=== PATIENT | male | born 1950 | race Caucasian/White ===

== ENCOUNTER → 2016-07-23 | Outpatient (CLI) | payer MEDICARE ==
--- NOTE | 2016-07-23 15:11 | CT ---
EXAMINATION TYPE: CT ChestAbdPelvis wo con DATE OF EXAM: 07/23/2016 2:27 PM COMPARISON: CT cap September 27, 2015. HISTORY: Bladder and Lung CA progress study. CT DLP: 1110 mGycm. Automated Exposure Control for Dose Reduction was Utilized. TECHNIQUE: CT scan of the thorax, abdomen and pelvis is performed with oral but without IV contrast. FINDINGS: LUNGS: There is redemonstration of linear scarring anteriorly in the left upper lobe. There is stable small left pleural thickening or fluid collection inferiorly and laterally. Mild to moderate basila r scarring is redemonstrated on the left. No new suspicious noncalcified parenchymal nodule or mass i s present. There are scattered calcified nodules measuring under 4 mm in size bilaterally redemonstra jake. The tracheobronchial tree is patent. MEDIASTINUM: There are no greater than 1 cm noncalcified hilar or mediastinal lymph nodes. There are prominent but subcentimeter calcified paratracheal, bilateral hilar, and subcarinal lymph nodes. No cardiomegaly or pericardial effusion is seen. Post CABG changes with mediastinal clips and sternal w ires is present OTHER: No additional significant abnormality is seen. LIVER/GB: There are scattered subcentimeter lesions throughout the liver as well as a 2 cm simple jorge alberto earing cyst left hepatic lobe all presumed benign. PANCREAS: No significant abnormality is seen. SPLEEN: A few calcifications throughout the spleen consistent with product of old granulomatous disea se are redemonstrated ADRENALS: No significant abnormality is seen. KIDNEYS: There is persistent abnormal wall thickening of the bladder along the anterior left aspect m easuring up to 8 mm on current study slightly less prominent than prior. BOWEL: Oral contrast reaches level of distal transverse colon. There is no suspicious small or large bowel dilatation. Small hiatal hernia is present. GENITAL ORGANS: No gross abnormality seen. LYMPH NODES: No greater than 1cm abdominal or pelvic lymph nodes are appreciated. OSSEOUS STRUCTURES: Posterior spur disc complex effaces anterior thecal sac at T11-T12 level. There i s disc space narrowing and vacuum disc phenomenon in lower lumbar spine facet arthropathy identified. OTHER: There is moderate calcified atherosclerotic change of distal abdominal aorta and iliac branch vessels. IMPRESSION: Eccentric wall thickening of bladder in which neoplasm cannot be excluded is less promine nt but presumed product of increased bladder distention. Evidence of old granulomatous disease redemo nstrated. No new mass or adenopathy is identified to suggest neoplastic progression.
== END ==
LOC: RADCTMAIN 12:02
PROVIDERS: ATTEND Internal Medicine Hematology & Oncology
DX: Z03.89 Encounter for observation for other suspected diseases and conditions ruled out (principal); C67.2 Malignant neoplasm of lateral wall of bladder; Z88.5 Allergy status to narcotic agent
CPT/HCPCS: 36415; 71250; 74176; 82565; 84520

== ENCOUNTER → 2017-04-04 | Outpatient (CLI) | payer MEDICARE ==
[2017-04-04 08:46] LABS: Blood Urea Nitrogen 25 mg/dL (9-20); Non-African American GFR(MDRD) 50 (>60 ml/min/1.73 sqM)
--- NOTE | 2017-04-04 11:00 | CT ---
EXAMINATION TYPE: CT ChestAbdPelvis w con DATE OF EXAM: 04/04/2017 INDICATION: Patient has no complaints at time of study. Follow up study for known bladder CA COMPARISON: 07/23/2016 CT DLP: 670.4 mGycm CONTRAST: Performed with Oral Contrast and with IV Contrast, patient injected with 80 mL of Visipaque 320. TECHNIQUE: Axial images at 5 mm thick sections. Reconstructed images in the coronal plane. Delayed images through the kidneys. FINDINGS: CT CHEST: Portion of the thyroid visualized is normal. Couple of benign-appearing rounded calcifications are in the upper lung louie likely related to calc ified granuloma. Some streak opacities within the left apex could be related atelectasis or scarring. Couple of areas of pneumonitis are within the left upper lung field, example series 4 image 22. Couple of punctate nodular densities are within the lower lung louie bilaterally. These measure 2 to 3 mm each at the bilateral posterior lung bases. These were present previously. There is a 1.0 cm pretracheal lymph node at the level the bam which is calcified and stable in siz e from comparison. Additional smaller calcified lymph nodes are present. There is a 1.0 cm lymph node posterior to the innominate artery and brachiocephalic vein within the superior mediastinum which is enlarged from 0.7 cm previously. Series 3 image 16 The ascending aorta diameter at the level of the main pulmonary artery is 3.5 cm. The main pulmonary artery diameter at the bifurcation is 2.3 cm. Small hiatal hernia is present. CT ABDOMEN: Liver: There are stable hypodensities within the superior right lobe liver measuring 0.7 and 1.3 cm i n size. Hypodensities within the superior left lobe liver measuring 1.2 cm in size. There is a medial left lobe liver 1.4 cm cyst present. Findings are likely related to hepatic cysts. There is a hypode nsity which is not a simple cyst in the posterior medial mid right lobe liver. However, this was pres ent previously and appears stable. Hypodensity in the anterior right lobe liver midportion appears mo re cystlike on the current examination than previous. No suspicious enlarging masses are identified. Spleen: Normal Pancreas: Atrophic Adrenal glands: The adrenal glands are normal. Gallbladder: Gallstone may be near the neck of the gallbladder. Gallbladder is otherwise unremarkable . Kidneys: No masses are evident. No hydronephrosis is present. There is a 1.3 cm cyst at the superio r pole posterior left kidney measuring 20 Hounsfield units. Delayed images were obtained through the kidneys, which remain unremarkable. Aorta: Vascular calcification is within the aorta. There is some wall thrombus within the mid abdomi nal aorta. The AP diameter measures 2.3 cm and extends to the bifurcation. Inferior vena cava: Normal. CT PELVIS: Loops of bowel within the abdomen and pelvis are normal. There are loops of bowel which are incom pletely distended or lack oral contrast limiting their evaluation. Appendix: Normal as visualized. Urinary bladder: Diffusely thickened wall which is eccentric and greater thickening along the anterio r margin, this is a change from prior study. Genitourinary structures: Prostate is normal. Osseous structures: There is a sclerotic 0.6 cm within the anterior left neck of the hip. Sacroiliac joint degenerative changes are present. Facet changes are present. There is loss of disc height L5-S1 . IMPRESSIONS: 1. Diffusely thickened urinary bladder wall greater along the anterior margin. This is more obvious t chavez the comparison study, change from prior. 2. Enlarging superior mediastinal lymph node. 3. Suspected gallstone at the neck of the gallbladder. 4. Probable hepatic cysts. 5. Some fusiform prominence of the mid abdominal aorta is stable from previous. 6. Multiple punctate 2 to 3 mm stable appearing nodules bilateral lung bases.
== END | disposition home or self-care (01) ==
LOC: RADCTMAIN 07:58
PROVIDERS: ATTEND Internal Medicine Hematology & Oncology
DX: N32.89 Other specified disorders of bladder (principal); R59.0 Localized enlarged lymph nodes; R91.8 Other nonspecific abnormal finding of lung field; C67.2 Malignant neoplasm of lateral wall of bladder
CPT/HCPCS: 82565; 84520; 71260; 74177; 36415; Q9967

== ENCOUNTER 2017-06-12 23:46 | Emergency (ER) | payer MEDICARE ==
[2017-06-12 23:54] VITALS: PULSE 71
[2017-06-13 00:36] LABS: Basophils % (A) 1 %; Eosinophils # (A) 0.1 k/uL (0-0.7); Eosinophils % (A) 1 %; HCT 42.3 % (39.0-53.0); HGB 13.7 gm/dL (13.0-17.5); Lymphocytes # (A) 0.6 k/uL (1.0-4.8); Lymphocytes % (A) 9 %; MCH 30.9 pg (25.0-35.0); MCHC 32.4 g/dL (31.0-37.0); MCV 95.3 fL (80.0-100.0); Monocytes # (A) 0.4 k/uL (0-1.0); Monocytes % (A) 7 %; Neutrophils # (A) 5.3 k/uL (1.3-7.7); Neutrophils % (A) 80 %; RBC 4.44 m/uL (4.30-5.90); WBC 6.6 k/uL (3.8-10.6)
[2017-06-13 00:53] LABS: INR 1.1 (<1.2); Partial Thromboplastin Time 24.3 sec (22.0-30.0); Prothrombin Time 10.7 sec (9.0-12.0)
[2017-06-13 01:01] LABS: Albumin 3.7 g/dL (3.5-5.0); Calcium 8.8 mg/dL (8.4-10.2); Potassium 4.6 mmol/L (3.5-5.1); Total Bilirubin 0.6 mg/dL (0.2-1.3); Total Protein 6.5 g/dL (6.3-8.2)
[2017-06-13 01:03] LABS: Large Platelets Present; Platelet Count 54 k/uL (150-450)
[2017-06-13 01:06] LABS: Appearance,Urine Cloudy (Clear); Bilirubin,Urine Negative (Negative); Blood,Urine Moderate (Negative); Color,Urine Yellow; Glucose,Urine (UA) Negative (Negative); Ketones,Urine Trace (Negative); Leukocyte Esterase,Urine Large (Negative); Nitrite,Urine Positive (Negative); Protein,Urine 2+ (Negative); RBC,Urine 31 /hpf (0-5); Specific Gravity,Urine 1.011 (1.001-1.035); Sperm,Urine Rare /hpf; Urobilinogen,Urine <2.0 mg/dL (<2.0); WBC,Urine >182 /hpf (0-5)
[2017-06-13 01:08] LABS: Amphetamine Screen,Urine Not Detected (NotDetected); Barbiturate Screen,Urine Not Detected (NotDetected); Benzodiazepines Screen,Urine Detected (NotDetected); Cocaine Screen,Urine Not Detected (NotDetected); Methadone Screen, Urine Not Detected (NotDetected); Opiate Screen,Urine Detected (NotDetected); Oxycodone Screen, Urine Not Detected (NotDetected); Phencyclidine Screen,Urine Not Detected (NotDetected); Tricyclic Antidepressant,Urine Not Detected (NotDetected); Urn Cannabinoid Scrn Detected (NotDetected)
[2017-06-13 01:21] LABS: Troponin I 0.017 ng/mL (0.000-0.034)
[2017-06-13 01:34] LABS: Creatine Kinase MB 8.9 ng/mL (0.0-2.4)
--- NOTE | 2017-06-13 01:37 | CT ---
EXAM: CT Head Without Intravenous Contrast CLINICAL HISTORY: Reason: altered mental status TECHNIQUE: Axial computed tomography images of the head/brain without intravenous contrast. CTDI is 57.40 mGy and DLP is 943.80 mGy-cm. This CT exam was performed using one or more of the following dose reduction techniques: automated exposure control, adjustment of the mA and/or kV according to patient size, and/or use of iterative reconstruction technique. COMPARISON: 01/01/16 FINDINGS: Brain: Unremarkable. No hemorrhage. No significant white matter disease. No edema. Ventricles: Unremarkable. No ventriculomegaly. Bones/joints: Unremarkable. No acute fracture. Soft tissues: Unremarkable. Sinuses: Unremarkable as visualized. No acute sinusitis. Mastoid air cells: Unremarkable as visualized. No mastoid effusion. Other findings: Age appropriate atrophy. IMPRESSION: No acute intracranial process. Stable exam.
[2017-06-13] MEDS ORDERED: LEVOFLOXACIN 750MG-D5W PMX 750 MG in DEXTROSE/WATER 1 150ML.BAG IVPB STA (01:58)
[2017-06-13 02:24] VITALS: BP 143/82; RESP 18; TEMP 98.7
[2017-06-13] MEDS ORDERED: HYDROcodone/APAP 7.5-325MG 1 EACH TAB PO ONE (02:51)
[2017-06-13] MEDS ORDERED: LEVOFLOXACIN 750 MG TAB PO STA (02:51)
--- NOTE | 2017-06-13 02:57 | ED ---
Headache HPI - General Chief Complaint: Altered Mental Status Stated Complaint: Altered Mental Status Time Seen by Provider: 06/13/17 00:19 Mode of arrival: ambulatory Limitations: no limitations - History of Present Illness Initial Comments: This patient is a 67-year-old man who presents with a concern that he may be having a stroke. The patient's states that by this he means he has had a rather severe headache. The patient's son is also concerned because the patient has not been his usual self. The patient has been more somnolent and his speech was a little slow and he seemed a little confused. The patient is not having any focal neurologic weakness or any numbness. The patient indicates that the headache is whole head. He describes as a pounding headache that started a number of hours ago, while he was at rest. He describes as constant, severe, and without any worsening or relieving factors. Patient denies fever or chills or any neck stiffness. The patient does note that he has not taken his usual home pain medication since noon. MD Complaint: headache -: hour(s) Onset Description: sudden Location: diffuse Severity: severe Quality: aching, throbbing Consistency: constant Improves With: nothing Worsens With: none Context: occurred at rest Treatments Prior to Arrival: none - Related Data Home Medications Medication Instructions Recorded Confirmed Atorvastatin [Lipitor] 20 mg PO HS 08/20/14 06/12/17 Clopidogrel [Plavix] 75 mg PO DAILY 08/20/14 06/12/17 Escitalopram [Lexapro] 20 mg PO DAILY 08/20/14 06/12/17 Ezetimibe [Zetia] 10 mg PO DAILY 08/20/14 06/12/17 Metoprolol Succinate [Toprol XL] 50 mg PO DAILY 08/20/14 06/12/17 Nitroglycerin Sl Tabs [Nitrostat] 0.4 mg PO Q5M PRN 08/20/14 06/12/17 Albuterol Sulfate [Proair Hfa] 2 puff INHALATION RT-QID PRN 10/27/15 06/12/17 Diltiazem HCl [Diltiazem 24Hr ER] 120 mg PO DAILY 10/27/15 06/12/17 Omeprazole 20 mg PO DAILY 10/27/15 06/12/17 Tiotropium 18 Mcg/Puff [Spiriva] 1 cap INHALATION RT-DAILY 10/27/15 06/12/17 Baclofen [Lioresal] 10 mg PO Q6H PRN 01/01/16 06/12/17 ALPRAZolam [Xanax XR] 1 mg PO DAILY 06/12/17 06/12/17 HYDROcodone/APAP 7.5-325MG [[place] 1 tab PO Q6HR PRN 06/12/17 06/12/17 7.5-325] Omeprazole 20 mg PO 06/12/17 traZODone HCL 50 mg PO HS 06/12/17 06/12/17 Previous Rx's Medication Instructions Recorded Levofloxacin [Levaquin] 750 mg PO DAILY #7 tab 06/13/17 Allergies Allergy/AdvReac Type Severity Reaction Status Date / Time propoxyphene HCl Allergy Dyspnea Verified 01/01/16 21:28 [From Darvon] propoxyphene napsylate Allergy Unknown Verified 01/01/16 21:28 [From Darvocet-N] aspirin AdvReac Unknown Verified 01/01/16 21:28 Review of Systems ROS Statement: Those systems with pertinent positive or pertinent negative responses have been documented in the HPI. ROS Other: All systems not noted in ROS Statement are negative. Constitutional: Denies: fever, chills, weakness ENT: Denies: throat pain Respiratory: Denies: cough, dyspnea Cardiovascular: Denies: chest pain, palpitations, edema Gastrointestinal: Reports: constipation. Denies: abdominal pain, vomiting, diarrhea Genitourinary: Reports: dysuria, hematuria Musculoskeletal: Reports: back pain (Chronic) Skin: Denies: rash Neurological: Reports: headache, weakness (Generalized), confusion. Denies: numbness, paresthesias Past Medical History Past Medical History: Cancer, GI Bleed, Hyperlipidemia, Hypertension, Myocardial Infarction ([place]), Osteoarthritis (OA) Additional Past Medical History / Comment(s): BLADDER and lung CA with chemo and radiation, COMA 5 years ago Last Myocardial Infarction Date:: 2009 History of Any Multi-Drug Resistant Organisms: None Reported Past Surgical History: Coronary Bypass/CABG, Heart Catheterization, Orthopedic Surgery Additional Past Surgical History / Comment(s): RIGHT KNEE REPLACED, BONE TAKEN OUT OF RIGHT SHOULDER, Past Anesthesia/Blood Transfusion Reactions: No Reported Reaction Past Psychological History: Anxiety, Depression Smoking Status: Former smoker Past Alcohol Use History: None Reported Past Drug Use History: Marijuana - Past Family History Son(s) Additional Family Medical History / Comment(s): Son at age 32 from brain aneurysm Mother Family Medical History: Congestive Heart Failure (CHF) Additional Family Medical History / Comment(s): HEART SWELLED General Exam Limitations: no limitations General appearance: alert, in no apparent distress Head exam: Present: atraumatic, normocephalic Eye exam: Present: normal appearance. Absent: scleral icterus, conjunctival injection ENT exam: Present: mucous membranes dry Neck exam: Present: full ROM Respiratory exam: Present: normal lung sounds bilaterally. Absent: respiratory distress, wheezes, rales, rhonchi, stridor Cardiovascular Exam: Present: regular rate, normal rhythm, normal heart sounds. Absent: systolic murmur, diastolic murmur, rubs, gallop GI/Abdominal exam: Present: soft. Absent: distended, tenderness, guarding, rebound, mass Extremities exam: Present: normal inspection, normal capillary refill. Absent: pedal edema, calf tenderness Back exam: Absent: CVA tenderness (R), CVA tenderness (L) Neurological exam: Present: alert, oriented X3, CN II-XII intact. Absent: motor sensory deficit Skin exam: Present: warm, dry, intact, normal color. Absent: rash Course Vital Signs 06/12/17 06/13/17 23:47 02:23 Temperature 98.1 F 98.7 F Pulse Rate 71 71 Respiratory 20 18 Rate Blood Pressure 155/75 143/82 O2 Sat by Pulse 93 L 95 Oximetry Medical Decision Making - Medical Decision Making Discussed the findings with the patient and his son. Offered admission to begin treatment of the urinary tract infection with possible prostate involvement. The patient states that he does have his son who is available to help care for him at home and that he would like to try starting medication as outpatient and return if there is any difficulty. This does seem acceptable. Discussed appropriate further care and follow-up as well as return parameters. - Lab Data Result diagrams: 06/13/17 00:21 06/13/17 00:21 Lab Results 06/13/17 06/13/17 06/13/17 Range/Units 00:21 00:21 00:21 WBC 6.6 (3.8-10.6) k/uL RBC 4.44 (4.30-5.90) m/uL Hgb 13.7 (13.0-17.5) gm/dL Hct 42.3 (39.0-53.0) % MCV 95.3 (80.0-100.0) fL MCH 30.9 (25.0-35.0) pg MCHC 32.4 (31.0-37.0) g/dL RDW 14.0 (11.5-15.5) % Plt Count 54 L (150-450) k/uL Neutrophils % 80 % Lymphocytes % 9 % Monocytes % 7 % Eosinophils % 1 % Basophils % 1 % Neutrophils # 5.3 (1.3-7.7) k/uL Lymphocytes # 0.6 L (1.0-4.8) k/uL Monocytes # 0.4 (0-1.0) k/uL Eosinophils # 0.1 (0-0.7) k/uL Basophils # 0.0 (0-0.2) k/uL Manual Slide Review Performed Large Platelets Present PT (9.0-12.0) sec INR (<1.2) APTT (22.0-30.0) sec Sodium 135 L (137-145) mmol/L Potassium 4.6 (3.5-5.1) mmol/L Chloride 95 L (98-107) mmol/L Carbon Dioxide 30 (22-30) mmol/L Anion Gap 10 mmol/L BUN 20 (9-20) mg/dL Creatinine 1.50 H (0.66-1.25) mg/dL Est GFR (MDRD) Af Amer 56 (>60 ml/min/1.73 sqM) Est GFR (MDRD) Non-Af 47 (>60 ml/min/1.73 sqM) Glucose 164 H (74-99) mg/dL Calcium 8.8 (8.4-10.2) mg/dL Total Bilirubin 0.6 (0.2-1.3) mg/dL AST 64 H (17-59) U/L ALT 32 (21-72) U/L Alkaline Phosphatase 64 (38-126) U/L Total Creatine Kinase 1166 H (55-170) U/L CK-MB (CK-2) 8.9 H* (0.0-2.4) ng/mL CK-MB (CK-2) Rel Index 0.8 Troponin I 0.017 (0.000-0.034) ng/mL Total Protein 6.5 (6.3-8.2) g/dL Albumin 3.7 (3.5-5.0) g/dL Urine Color Urine Appearance (Clear) Urine pH (5.0-8.0) Ur Specific Adams (1.001-1.035) Urine Protein (Negative) Urine Glucose (UA) (Negative) Urine Ketones (Negative) Urine Blood (Negative) Urine Nitrite (Negative) Urine Bilirubin (Negative) Urine Urobilinogen (<2.0) mg/dL Ur Leukocyte Esterase (Negative) Urine RBC (0-5) /hpf Urine WBC (0-5) /hpf Urine WBC Clumps (None) /hpf Urine Sperm (None) /hpf Urine Opiates Screen (NotDetected) Ur Oxycodone Screen (NotDetected) Urine Methadone Screen (NotDetected) Ur Propoxyphene Screen (NotDetected) Ur Barbiturates Screen (NotDetected) U Tricyclic Antidepress (NotDetected) Ur Phencyclidine Scrn (NotDetected) Ur Amphetamines Screen (NotDetected) U Methamphetamines Scrn (NotDetected) U Benzodiazepines Scrn (NotDetected) Urine Cocaine Screen (NotDetected) U Marijuana (THC) Screen (NotDetected) 06/13/17 06/13/17 Range/Units 00:21 00:40 WBC (3.8-10.6) k/uL RBC (4.30-5.90) m/uL Hgb (13.0-17.5) gm/dL Hct (39.0-53.0) % MCV (80.0-100.0) fL MCH (25.0-35.0) pg MCHC (31.0-37.0) g/dL RDW (11.5-15.5) % Plt Count (150-450) k/uL Neutrophils % % Lymphocytes % % Monocytes % % Eosinophils % % Basophils % % Neutrophils # (1.3-7.7) k/uL Lymphocytes # (1.0-4.8) k/uL Monocytes # (0-1.0) k/uL Eosinophils # (0-0.7) k/uL Basophils # (0-0.2) k/uL Manual Slide Review Large Platelets PT 10.7 (9.0-12.0) sec INR 1.1 (<1.2) APTT 24.3 (22.0-30.0) sec Sodium (137-145) mmol/L Potassium (3.5-5.1) mmol/L Chloride (98-107) mmol/L Carbon Dioxide (22-30) mmol/L Anion Gap mmol/L BUN (9-20) mg/dL Creatinine (0.66-1.25) mg/dL Est GFR (MDRD) Af Amer (>60 ml/min/1.73 sqM) Est GFR (MDRD) Non-Af (>60 ml/min/1.73 sqM) Glucose (74-99) mg/dL Calcium (8.4-10.2) mg/dL Total Bilirubin (0.2-1.3) mg/dL AST (17-59) U/L ALT (21-72) U/L Alkaline Phosphatase (38-126) U/L Total Creatine Kinase (55-170) U/L CK-MB (CK-2) (0.0-2.4) ng/mL CK-MB (CK-2) Rel Index Troponin I (0.000-0.034) ng/mL Total Protein (6.3-8.2) g/dL Albumin (3.5-5.0) g/dL Urine Color Yellow Urine Appearance Cloudy (Clear) Urine pH 6.0 (5.0-8.0) Ur Specific [place] 1.011 (1.001-1.035) Urine Protein 2+ H (Negative) Urine Glucose (UA) Negative (Negative) Urine Ketones Trace H (Negative) Urine Blood Moderate H (Negative) Urine Nitrite Positive (Negative) Urine Bilirubin Negative (Negative) Urine Urobilinogen <2.0 (<2.0) mg/dL Ur Leukocyte Esterase Large H (Negative) Urine RBC 31 H (0-5) /hpf Urine WBC >182 H (0-5) /hpf Urine WBC Clumps Many H (None) /hpf Urine Sperm Rare (None) /hpf Urine Opiates Screen Detected H (NotDetected) Ur Oxycodone Screen Not Detected (NotDetected) Urine Methadone Screen Not Detected (NotDetected) Ur Propoxyphene Screen Not Detected (NotDetected) Ur Barbiturates Screen Not Detected (NotDetected) U Tricyclic Antidepress Not Detected (NotDetected) Ur Phencyclidine Scrn Not Detected (NotDetected) Ur Amphetamines Screen Not Detected (NotDetected) U Methamphetamines Scrn Not Detected (NotDetected) U Benzodiazepines Scrn Detected H (NotDetected) Urine Cocaine Screen Not Detected (NotDetected) U Marijuana (THC) Screen Detected H (NotDetected) - EKG Data -: EKG Interpreted by Hi EKG shows normal: sinus rhythm, axis (Left), intervals (N[place] interval 208 ms, QRS duration 132 ms, QTC 450 ms), QRS complexes (Right bundle-branch block) Rate: normal (Rate 60 bpm) Interpretation: other (Possible old inferior infarct.) Disposition Clinical Impression: UTI (urinary tract infection), Altered mental status Disposition: HOME SELF-CARE Condition: Fair Instructions: Urinary Tract Infection in Men (ED) Prescriptions: Levofloxacin [Levaquin] 750 mg PO DAILY #7 tab Referrals: Dayan Hui III, MD [Primary Care Provider] - 1-2 days
== END 2017-06-13 03:37 | disposition home or self-care (01) ==
LOC: EC 23:46
DX: N39.0 Urinary tract infection, site not specified (principal); R41.82 Altered mental status, unspecified; R51 Headache; E78.5 Hyperlipidemia, unspecified; I10 Essential (primary) hypertension; I25.2 Old myocardial infarction; F32.9 Major depressive disorder, single episode, unspecified; F41.9 Anxiety disorder, unspecified; Z85.51 Personal history of malignant neoplasm of bladder; Z85.118 Personal history of other malignant neoplasm of bronchus and lung; Z87.891 Personal history of nicotine dependence; Z79.01 Long term (current) use of anticoagulants; Z79.899 Other long term (current) drug therapy; Z88.5 Allergy status to narcotic agent; Z88.6 Allergy status to analgesic agent; Z88.8 Allergy status to other drugs, medicaments and biological substances; Z53.8 Procedure and treatment not carried out for other reasons
CPT/HCPCS: 36415; 70450; 80053; 80306; 81001; 82550; 82553; 84484; 85025; 85610; 85730; 93005; 99285

== ENCOUNTER 2017-06-27 10:14 | Inpatient (IN) | payer MEDICARE ==
[2017-06-27] MEDS ORDERED: SODIUM CHLORIDE 0.9% 1,000 ML IV STA (10:17)
[2017-06-27] MEDS ORDERED: ceFAZolin 1,000 MG in DEXTROSE/WATER 1 50ML.BAG IVPB STA (10:17)
[2017-06-27] MEDS ORDERED: DIPH,PERTUS(ACELL)TETVAC-LF 0.5 ML VIAL IM ONE (10:17)
--- NOTE | 2017-06-27 10:21 | ED ---
General Adult HPI - General Source: RN notes reviewed <Robert Stanley - Last Filed: 06/27/17 13:48> <Beatrice Ivey - Last Filed: 06/27/17 13:59> - General Stated complaint: FALL Time Seen by Provider: 06/27/17 10:14 - History of Present Illness Initial comments: This is a 67-year-old male who presents to the emergency department with altered mental status. According to EMS the son stated the patient was last seen last night and this morning when he came over to see the patient he was on the floor bleeding from the left supraorbital region and was naked lying on the floor. Patient was unable to give any history. According to the son is normally alert and oriented 3 and appears to only be alert and oriented 1 according to EMS. EMS did give the patient Narcan it had no effect. Patient's only complaint currently is back pain which is chronic. No other history is available at this time. (Robert Stanley) - Related Data Home Medications Medication Instructions Recorded Confirmed Atorvastatin [Lipitor] 20 mg PO HS 08/20/14 06/27/17 Clopidogrel [Plavix] 75 mg PO DAILY 08/20/14 06/27/17 Escitalopram [Lexapro] 20 mg PO DAILY 08/20/14 06/27/17 Ezetimibe [Zetia] 10 mg PO DAILY 08/20/14 06/27/17 Metoprolol Succinate [Toprol XL] 25 mg PO DAILY 08/20/14 06/27/17 Nitroglycerin Sl Tabs [Nitrostat] 0.4 mg PO Q5M PRN 08/20/14 06/27/17 Albuterol Sulfate [Proair Hfa] 2 puff INHALATION RT-QID PRN 10/27/15 06/27/17 Diltiazem HCl [Diltiazem 24Hr ER] 120 mg PO AC-BRKFST 10/27/15 06/27/17 Omeprazole 20 mg PO DAILY 10/27/15 06/27/17 Tiotropium 18 Mcg/Puff [Spiriva] 1 cap INHALATION RT-DAILY 10/27/15 06/27/17 HYDROcodone/APAP 7.5-325MG [[place] 1 tab PO Q6HR PRN 06/12/17 06/27/17 7.5-325] traZODone HCL 50 - 100 mg PO HS PRN 06/12/17 06/27/17 ALPRAZolam [ALPRAZolam] 1 mg PO Q8H PRN 06/27/17 06/27/17 Baclofen [Lioresal] 20 mg PO Q6H PRN 06/27/17 06/27/17 traMADol HCL [Ultram] 50 mg PO Q4HR PRN 06/27/17 06/27/17 Allergies Allergy/AdvReac Type Severity Reaction Status Date / Time propoxyphene HCl Allergy Dyspnea Verified 06/27/17 11:46 [From Darvon] propoxyphene napsylate Allergy Unknown Verified 06/27/17 11:46 [From Darvocet-N] aspirin AdvReac Unknown Verified 06/27/17 11:46 Review of Systems ROS Other: All systems not noted in ROS Statement are negative. <Robert Stanley - Last Filed: 06/27/17 13:48> ROS Other: All systems not noted in ROS Statement are negative. <Beatrice Ivey - Last Filed: 06/27/17 13:59> ROS Statement: Those systems with pertinent positive or pertinent negative responses have been documented in the HPI. Past Medical History Past Medical History: Cancer, GI Bleed, Hyperlipidemia, Hypertension, Myocardial Infarction ([place]), Osteoarthritis ([place]) Additional Past Medical History / Comment(s): BLADDER and lung CA with chemo and radiation, COMA 5 years ago Last Myocardial Infarction Date:: 2009 History of Any Multi-Drug Resistant Organisms: None Reported Past Surgical History: Coronary Bypass/CABG, Heart Catheterization, Orthopedic Surgery Additional Past Surgical History / Comment(s): RIGHT KNEE REPLACED, BONE TAKEN OUT OF RIGHT SHOULDER, Past Anesthesia/Blood Transfusion Reactions: No Reported Reaction Past Psychological History: Anxiety, Depression Smoking Status: Former smoker Past Alcohol Use History: None Reported Past Drug Use History: Marijuana - Past Family History Son(s) Additional Family Medical History / Comment(s): Son at age 32 from brain aneurysm Mother Family Medical History: Congestive Heart Failure (CHF) Additional Family Medical History / Comment(s): HEART SWELLED <Robert Stanley - Last Filed: 06/27/17 13:48> General Exam <Robert Stanley - Last Filed: 06/27/17 13:48> <ReardanBeatrice M - Last Filed: 06/27/17 13:59> - General Exam Comments Initial Comments: GENERAL: Patient is well-developed and well-nourished. Patient is nontoxic and well- hydrated and is in mild distress. ENT: Neck is soft and supple. No significant lymphadenopathy is noted. Oropharynx is clear. Moist mucous membranes. Neck has full range of motion without eliciting any pain. EYES: The sclera were anicteric and conjunctiva were pink and moist. Extraocular movements were intact and pupils were equal round and reactive to light. Eyelids were unremarkable. PULMONARY: Unlabored respirations. Good breath sounds bilaterally. No audible rales rhonchi or wheezing was noted. CARDIOVASCULAR: There is a regular rate and rhythm without any murmurs gallops or rubs. ABDOMEN: Soft and nontender with normal bowel sounds. No palpable organomegaly was noted. There is no palpable pulsatile mass. SKIN: This is a laceration on the patient has a laceration to the left supraorbital region over the eyebrow NEUROLOGIC: Patient is alert and oriented 1. Cranial nerves II through XII are grossly intact. Motor and sensory are also intact. Normal speech, volume and content. Symmetrical smile. MUSCULOSKELETAL: Normal extremities with adequate strength and full range of motion. No lower extremity swelling or edema. No calf tenderness. LYMPHATICS: No significant lymphadenopathy is noted PSYCHIATRIC: Patient's only oriented 1 unable to assess (Robert Stanley) Vital Signs 06/27/17 06/27/17 06/27/17 10:16 10:31 10:46 Temperature 97.2 F L Pulse Rate 98 93 89 Respiratory 20 20 20 Rate Blood Pressure 191/102 180/100 174/95 O2 Sat by Pulse 96 Oximetry 06/27/17 06/27/17 06/27/17 11:01 11:16 11:46 Temperature Pulse Rate 101 H 97 87 Respiratory 20 20 20 Rate Blood Pressure 174/98 165/96 179/94 O2 Sat by Pulse 95 Oximetry 06/27/17 06/27/17 06/27/17 12:16 12:46 13:16 Temperature Pulse Rate 97 88 94 Respiratory 20 20 20 Rate Blood Pressure 166/94 163/85 183/86 O2 Sat by Pulse 95 95 95 Oximetry Procedures - Laceration Laceration #1 Consent Obtained: verbal consent Indication: laceration Site: face (left lateral eyebrow ) Size (cm): 1 (0.5) Description: linear Depth: simple, single layer Anesthesia Technique: local infiltration Amount (mls): 1 Pre-repair: wound explored, irrigated extensively, deep structures intact Type of Sutures: nylon Size of Sutures: 6-0 Number of Sutures: 1 Technique: simple, interrupted Patient Tolerated Procedure: well, no complications <Beatrice Ivey - Last Filed: 06/27/17 13:59> Medical Decision Making - Lab Data Result diagrams: 06/27/17 10:40 06/27/17 10:40 <Robert Stanley - Last Filed: 06/27/17 13:48> - Lab Data Result diagrams: 06/27/17 10:40 06/27/17 10:40 <Beatrice Ivey - Last Filed: 06/27/17 13:59> - Medical Decision Making EKG shows a sinus rhythm with occasional PVC at 90 bpm GA interval is 166 QRS is 136 QT interval 408 QTC is 520. Patient's EKG also shows an occasional PVC. EKG shows right bundle branch block. When compared to an old EKG patient had a right bundle karon block as well and I see no acute changes. Patient has a urinary tract infection and started the patient on Rocephin. CAT scan of the brain shows no acute abnormality. Chest x-ray shows no acute abnormality. I spoke with Dr. Heard he agreed to admit the patient admitted the patient and wrote admitting orders. (Robert Stanley) - Lab Data Lab Results 06/27/17 06/27/17 06/27/17 Range/Units 10:23 10:40 10:40 WBC 9.5 (3.8-10.6) k/uL RBC 4.66 (4.30-5.90) m/uL Hgb 13.8 (13.0-17.5) gm/dL Hct 42.9 (39.0-53.0) % MCV 92.0 (80.0-100.0) fL MCH 29.7 (25.0-35.0) pg MCHC 32.2 (31.0-37.0) g/dL RDW 13.1 (11.5-15.5) % Plt Count 53 L (150-450) k/uL Neutrophils % (Manual) 78 % Lymphocytes % (Manual) 11 % Monocytes % (Manual) 10 % Eosinophils % (Manual) 1 % Other Cells % % Neutrophils # (Manual) 7.41 (1.3-7.7) k/uL Lymphocytes # (Manual) 1.05 (1.0-4.8) k/uL Monocytes # (Manual) 0.95 (0-1.0) k/uL Eosinophils # (Manual) 0.10 (0-0.7) k/uL Nucleated RBCs 0 (0-0) /100 WBC PT (9.0-12.0) sec INR (<1.2) APTT (22.0-30.0) sec Sodium (137-145) mmol/L Potassium (3.5-5.1) mmol/L Chloride (98-107) mmol/L Carbon Dioxide (22-30) mmol/L Anion Gap mmol/L BUN (9-20) mg/dL Creatinine (0.66-1.25) mg/dL Est GFR (MDRD) Af Amer (>60 ml/min/1.73 sqM) Est GFR (MDRD) Non-Af (>60 ml/min/1.73 sqM) Glucose (74-99) mg/dL POC Glucose (mg/dL) 111 H (75-99) mg/dL POC Glu Clinical Informatics Spec ID Cate Segovia Calcium (8.4-10.2) mg/dL Magnesium (1.6-2.3) mg/dL Total Bilirubin (0.2-1.3) mg/dL AST (17-59) U/L ALT (21-72) U/L Alkaline Phosphatase (38-126) U/L Total Creatine Kinase 1075 H (55-170) U/L CK-MB (CK-2) 2.4 (0.0-2.4) ng/mL CK-MB (CK-2) Rel Index 0.2 Troponin I 0.119 H* (0.000-0.034) ng/mL Total Protein (6.3-8.2) g/dL Albumin (3.5-5.0) g/dL Urine Color Urine Appearance (Clear) Urine pH (5.0-8.0) Ur Specific [place] (1.001-1.035) Urine Protein (Negative) Urine Glucose (UA) (Negative) Urine Ketones (Negative) Urine Blood (Negative) Urine Nitrite (Negative) Urine Bilirubin (Negative) Urine Urobilinogen (<2.0) mg/dL Ur Leukocyte Esterase (Negative) Urine RBC (0-5) /hpf Urine WBC (0-5) /hpf Urine WBC Clumps (None) /hpf Amorphous Sediment (None) /hpf Urine Bacteria (None) /hpf Urine Opiates Screen (NotDetected) Ur Oxycodone Screen (NotDetected) Urine Methadone Screen (NotDetected) Ur Propoxyphene Screen (NotDetected) Ur Barbiturates Screen (NotDetected) U Tricyclic Antidepress (NotDetected) Ur Phencyclidine Scrn (NotDetected) Ur Amphetamines Screen (NotDetected) U Methamphetamines Scrn (NotDetected) U Benzodiazepines Scrn (NotDetected) Urine Cocaine Screen (NotDetected) U Marijuana (THC) Screen (NotDetected) Serum Alcohol mg/dL 06/27/17 06/27/17 06/27/17 Range/Units 10:40 10:40 10:40 WBC (3.8-10.6) k/uL RBC (4.30-5.90) m/uL Hgb (13.0-17.5) gm/dL Hct (39.0-53.0) % MCV (80.0-100.0) fL MCH (25.0-35.0) pg MCHC (31.0-37.0) g/dL RDW (11.5-15.5) % Plt Count (150-450) k/uL Neutrophils % (Manual) % Lymphocytes % (Manual) % Monocytes % (Manual) % Eosinophils % (Manual) % Other Cells % % Neutrophils # (Manual) (1.3-7.7) k/uL Lymphocytes # (Manual) (1.0-4.8) k/uL Monocytes # (Manual) (0-1.0) k/uL Eosinophils # (Manual) (0-0.7) k/uL Nucleated RBCs (0-0) /100 WBC PT 10.3 (9.0-12.0) sec INR 1.1 (<1.2) APTT 23.7 (22.0-30.0) sec Sodium 139 (137-145) mmol/L Potassium 3.1 L (3.5-5.1) mmol/L Chloride 96 L (98-107) mmol/L Carbon Dioxide 29 (22-30) mmol/L Anion Gap 14 mmol/L BUN 26 H (9-20) mg/dL Creatinine 2.10 H (0.66-1.25) mg/dL Est GFR (MDRD) Af Amer 38 (>60 ml/min/1.73 sqM) Est GFR (MDRD) Non-Af 32 (>60 ml/min/1.73 sqM) Glucose 116 H (74-99) mg/dL POC Glucose (mg/dL) (75-99) mg/dL POC Glu Clinical Informatics Spec ID Calcium 8.8 (8.4-10.2) mg/dL Magnesium 2.3 (1.6-2.3) mg/dL Total Bilirubin 0.5 (0.2-1.3) mg/dL AST 126 H (17-59) U/L ALT 25 (21-72) U/L Alkaline Phosphatase 69 (38-126) U/L Total Creatine Kinase (55-170) U/L CK-MB (CK-2) (0.0-2.4) ng/mL CK-MB (CK-2) Rel Index Troponin I (0.000-0.034) ng/mL Total Protein 6.4 (6.3-8.2) g/dL Albumin 3.6 (3.5-5.0) g/dL Urine Color Yellow Urine Appearance Slightly Cloudy (Clear) Urine pH 6.0 (5.0-8.0) Ur Specific [place] 1.005 (1.001-1.035) Urine Protein 3+ H (Negative) Urine Glucose (UA) Negative (Negative) Urine Ketones Negative (Negative) Urine Blood Large (Negative) Urine Nitrite Negative (Negative) Urine Bilirubin 1+ H (Negative) Urine Urobilinogen <2.0 (<2.0) mg/dL Ur Leukocyte Esterase Large H (Negative) Urine RBC 133 H (0-5) /hpf Urine WBC 67 H (0-5) /hpf Urine WBC Clumps Moderate H (None) /hpf Amorphous Sediment Rare H (None) /hpf Urine Bacteria Moderate H (None) /hpf Urine Opiates Screen (NotDetected) Ur Oxycodone Screen (NotDetected) Urine Methadone Screen (NotDetected) Ur Propoxyphene Screen (NotDetected) Ur Barbiturates Screen (NotDetected) U Tricyclic Antidepress (NotDetected) Ur Phencyclidine Scrn (NotDetected) Ur Amphetamines Screen (NotDetected) U Methamphetamines Scrn (NotDetected) U Benzodiazepines Scrn (NotDetected) Urine Cocaine Screen (NotDetected) U Marijuana (THC) Screen (NotDetected) Serum Alcohol mg/dL 06/27/17 06/27/17 Range/Units 10:40 12:21 WBC (3.8-10.6) k/uL RBC (4.30-5.90) m/uL Hgb (13.0-17.5) gm/dL Hct (39.0-53.0) % MCV (80.0-100.0) fL MCH (25.0-35.0) pg MCHC (31.0-37.0) g/dL RDW (11.5-15.5) % Plt Count (150-450) k/uL Neutrophils % (Manual) % Lymphocytes % (Manual) % Monocytes % (Manual) % Eosinophils % (Manual) % Other Cells % % Neutrophils # (Manual) (1.3-7.7) k/uL Lymphocytes # (Manual) (1.0-4.8) k/uL Monocytes # (Manual) (0-1.0) k/uL Eosinophils # (Manual) (0-0.7) k/uL Nucleated RBCs (0-0) /100 WBC PT (9.0-12.0) sec INR (<1.2) APTT (22.0-30.0) sec Sodium (137-145) mmol/L Potassium (3.5-5.1) mmol/L Chloride (98-107) mmol/L Carbon Dioxide (22-30) mmol/L Anion Gap mmol/L BUN (9-20) mg/dL Creatinine (0.66-1.25) mg/dL Est GFR (MDRD) Af Amer (>60 ml/min/1.73 sqM) Est GFR (MDRD) Non-Af (>60 ml/min/1.73 sqM) Glucose (74-99) mg/dL POC Glucose (mg/dL) (75-99) mg/dL POC Glu Clinical Informatics Spec ID Calcium (8.4-10.2) mg/dL Magnesium (1.6-2.3) mg/dL Total Bilirubin (0.2-1.3) mg/dL AST (17-59) U/L ALT (21-72) U/L Alkaline Phosphatase (38-126) U/L Total Creatine Kinase (55-170) U/L CK-MB (CK-2) (0.0-2.4) ng/mL CK-MB (CK-2) Rel Index Troponin I (0.000-0.034) ng/mL Total Protein (6.3-8.2) g/dL Albumin (3.5-5.0) g/dL Urine Color Urine Appearance (Clear) Urine pH (5.0-8.0) Ur Specific [place] (1.001-1.035) Urine Protein (Negative) Urine Glucose (UA) (Negative) Urine Ketones (Negative) Urine Blood (Negative) Urine Nitrite (Negative) Urine Bilirubin (Negative) Urine Urobilinogen (<2.0) mg/dL Ur Leukocyte Esterase (Negative) Urine RBC (0-5) /hpf Urine WBC (0-5) /hpf Urine WBC Clumps (None) /hpf Amorphous Sediment (None) /hpf Urine Bacteria (None) /hpf Urine Opiates Screen Detected H (NotDetected) Ur Oxycodone Screen Not Detected (NotDetected) Urine Methadone Screen Not Detected (NotDetected) Ur Propoxyphene Screen Not Detected (NotDetected) Ur Barbiturates Screen Not Detected (NotDetected) U Tricyclic Antidepress Not Detected (NotDetected) Ur Phencyclidine Scrn Not Detected (NotDetected) Ur Amphetamines Screen Not Detected (NotDetected) U Methamphetamines Scrn Not Detected (NotDetected) U Benzodiazepines Scrn Not Detected (NotDetected) Urine Cocaine Screen Not Detected (NotDetected) U Marijuana (THC) Screen Detected H (NotDetected) Serum Alcohol <10 mg/dL Disposition Time of Disposition: 13:46 <Robert Stanley - Last Filed: 06/27/17 13:48> <Beatrice Ivey - Last Filed: 06/27/17 13:59> Clinical Impression: Altered mental status, Urinary tract infection, Elevated troponin, Renal insufficiency, Laceration of forehead Disposition: ADMITTED IP TO THIS HOSP
[2017-06-27 10:46] LABS: Glucose,Whole Blood 111 mg/dL (75-99)
[2017-06-27 11:15] LABS: INR 1.1 (<1.2); Partial Thromboplastin Time 23.7 sec (22.0-30.0); Prothrombin Time 10.3 sec (9.0-12.0)
[2017-06-27 11:16] LABS: Appearance,Urine Slightly Cloudy (Clear); Color,Urine Yellow
[2017-06-27] MEDS ORDERED: MORPHINE SULFATE 4 MG/ML SYRINGE IVP STA (11:16)
[2017-06-27 11:17] LABS: Glucose,Urine (UA) Negative (Negative); Protein,Urine 3+ (Negative); Specific Gravity,Urine 1.005 (1.001-1.035)
[2017-06-27 11:18] LABS: Bilirubin,Urine 1+ (Negative); Ketones,Urine Negative (Negative)
[2017-06-27 11:19] LABS: Blood,Urine Large (Negative); Urobilinogen,Urine <2.0 mg/dL (<2.0)
[2017-06-27 11:20] LABS: Albumin 3.6 g/dL (3.5-5.0); Calcium 8.8 mg/dL (8.4-10.2); Magnesium 2.3 mg/dL (1.6-2.3); Nitrite,Urine Negative (Negative); Potassium 3.1 mmol/L (3.5-5.1); Total Bilirubin 0.5 mg/dL (0.2-1.3); Total Protein 6.4 g/dL (6.3-8.2)
[2017-06-27 11:21] LABS: Leukocyte Esterase,Urine Large (Negative)
[2017-06-27 11:24] LABS: HCT 42.9 % (39.0-53.0); HGB 13.8 gm/dL (13.0-17.5); MCH 29.7 pg (25.0-35.0); MCHC 32.2 g/dL (31.0-37.0); Platelet Count 53 k/uL (150-450); RBC 4.66 m/uL (4.30-5.90); RDW 13.1 % (11.5-15.5); WBC 9.5 k/uL (3.8-10.6)
[2017-06-27 11:29] LABS: Amorphous Sediment,Urine Rare /hpf; Bacteria,Urine Moderate /hpf; RBC,Urine 133 /hpf (0-5); WBC,Urine 67 /hpf (0-5)
[2017-06-27 11:44] LABS: Creatine Kinase MB 2.4 ng/mL (0.0-2.4)
--- NOTE | 2017-06-27 11:44 | CT ---
EXAMINATION TYPE: CT brain cspine wo con DATE OF EXAM: 06/27/2017 COMPARISON: 06/13/2017 HISTORY: Fall, cut to left supraorbital region CT DLP: 1725 mGycm, Automated exposure control for dose reduction was used. CONTRAST: None CT of the brain is performed utilizing 3 mm thick sections through the posterior fossa and 3 mm thick sections through the remaining calvarium. Study is performed within 24 hours of arrival to the hospital. No abnormal hyperdensity is present to suggest an acute intracranial hemorrhage. No mass lesion is evident. No acute infarcts are evident. Ventricles and sulci are appropriate for the patient age. Soft tissue injury is over the left temporal region adjacent to the greater wings of the sphenoid. No acute fractures are evident. Paranasal sinuses and mastoid air cells within the [id number] are clear. IMPRESSIONS: 1. Normal CT brain. CT cervical spine. COMPARISON: None CT of the cervical spine is performed in the axial plane at 2 mm thick sections. Reconstructed image s in the coronal, and sagittal plane are reviewed on the computer. No acute fractures are evident. Vertebral body alignment is normal. There is loss of disc height C4-C5 with vacuum disc phenomenon. Narrowing of C3-4 disc height is also present. Posterior disc space narrowing is present C5-6 C6-7 and C7-T1. Vertebral body heights are preserved. No spinal canal stenosis is evident. No neural foraminal stenosis is evident. IMPRESSIONS: 1. Degenerative disc changes C3-4 C4-5.
[2017-06-27 11:48] LABS: Troponin I 0.119 ng/mL (0.000-0.034)
[2017-06-27] MEDS ORDERED: cefTRIAXone IN SWFI 1,000 MG/10 ML SYRINGE IVP STA (11:53)
--- NOTE | 2017-06-27 12:16 | XR ---
EXAMINATION TYPE: XR chest 2V DATE OF EXAM: 06/27/2017 COMPARISON: 11/27/2015 TECHNIQUE: PA and lateral views submitted. HISTORY: Chest pain FINDINGS: Postsurgical changes noted and there is a small left pleural effusion and basilar consolidation. No p neumothorax. Arthropathy of the shoulders. Tiny granuloma suspected bilaterally. Pleural-based thicke livier on the left noted. Hypertrophic and degenerative changes spine noted. IMPRESSION: 1. Left basilar infiltrate and small effusion with pleural thickening. This appears been present on t he previous chest x-ray.
[2017-06-27 12:25] LABS: Amphetamine Screen,Urine Not Detected (NotDetected); Barbiturate Screen,Urine Not Detected (NotDetected); Benzodiazepines Screen,Urine Not Detected (NotDetected); Cocaine Screen,Urine Not Detected (NotDetected); Methadone Screen, Urine Not Detected (NotDetected); Opiate Screen,Urine Detected (NotDetected); Oxycodone Screen, Urine Not Detected (NotDetected); Phencyclidine Screen,Urine Not Detected (NotDetected); Tricyclic Antidepressant,Urine Not Detected (NotDetected); Urn Cannabinoid Scrn Detected (NotDetected)
[2017-06-27 12:46] LABS: Lymphocytes # (M) 1.05 k/uL (1.0-4.8); Monocytes # (M) 0.95 k/uL (0-1.0); Neutrophils # (M) 7.41 k/uL (1.3-7.7); Neutrophils % (M) 78 %; Nucleated Red Blood Cells 0 /100 WBC (0-0); Total Cells Counted 100
[2017-06-27] MEDS ORDERED: ASPIRIN 81 MG PO STA (13:46)
[2017-06-27] MEDS ORDERED: NITROGLYCERIN SL TABS 0.4 MG TAB SUBLINGUAL PRN (13:46)
[2017-06-27] MEDS ORDERED: HEPARIN SODIUM,PORCINE 5,000 UNIT/ML 1 ML VIAL IV ONE (15:11)
[2017-06-27] MEDS ORDERED: HEPARIN SOD,PORK IN 0.45% NACL 25,000 UNIT in 0.45% NACL 1 500ML.BAG IV SCH (15:15)
[2017-06-27] MEDS ORDERED: POTASSIUM CHLORIDE ER 20 MEQ TAB.ER PO STA (15:24)
[2017-06-27 17:16] LABS: Troponin I 0.472 ng/mL (0.000-0.034)
[2017-06-27] MEDS: NITROGLYCERIN OINT 1 INCH/GM PACKET TOPICAL SCH ×2 (18:32→23:51)
[2017-06-27] MEDS ORDERED: traZODone HCL 50 MG TAB PO PRN (20:33)
[2017-06-27] MEDS: traMADol 50 MG TAB PO PRN (20:51)
[2017-06-27] MEDS: ALPRAZolam 0.25 MG TAB PO PRN (20:51)
--- NOTE | 2017-06-27 21:21 | HP ---
HISTORY AND PHYSICAL DATE OF SERVICE: 06/27/17 CHIEF COMPLAINTS: Syncope and fall. HISTORY OF PRESENT ILLNESS: This 67-year-old gentleman with a past medical history of multiple medical problems including history of atrial flutter, history of CAD, history of GERD, GI bleed, hypertension, hyperlipidemia, being followed by Dr. Hui in the outpatient setting also has extensive history of cardiac issues including CABG and cardiac catheterization also. The patient apparently living by himself. The patient was seen last night and this morning when the patient was found on the floor, bleeding from the left supraorbital area after a fall and was patient was naked on the floor. The patient unable to give coherent history. Patient was confused and the patient was taken to [facility] and admitted for further evaluation and treatment. At the hospital, the patient had indeterminate troponins 0.119 increased to 0.472 and CK is also elevated. Creatinine is found to be 2.1, indicating acute renal failure. The patient also had features of UTI also. THC was also positive. The patient is admitted for evaluation and treatment. Platelet count of 153. Even currently the patient is mildly confused and unable to give coherent history. Most of the history is taken my discussion with staff and review of chart at this time. PAST MEDICAL HISTORY: History of atrial flutter, history of CAD, history of hyperlipidemia, GERD, GI bleed, history of myocardial infarction, history of UTI, recent UTI treated with antibiotics. History of CAD, CABG, history of anxiety and depression. MEDICATIONS: Prior to admission include home medications are: 1. Toprol-XL 25 mg p.o. daily. 2. [place] 7.5 q.6h. 3. Lioresal 10 mg q.6 p.r.n. 4. Alprazolam 1 mg q8 p.r.n. 5. Trazodone 5200 mg q.h.s. p.r.n. 6. Ultram 50 mg q.4h p.r.n. 7. Spiriva 1 puff daily. 8. Plavix 75 mg p.o. daily. 9. Omeprazole 20 mg p.o. daily. 10.Zetia 10 mg p.o. daily. 11.Lexapro 20 mg p.o. daily. 12.Diltiazem 120 mg at breakfast. 13.Lipitor 10 mg q.h.s. 14.Nitrostat 0.4 mg sublingual p.r.n. 15.ProAir 2 puffs q.i.d. p.r.n. ALLERGIES: DARVON, DARVOCET-N100 AND ASPIRIN. FAMILY HISTORY: History of CHF and brain aneurysm. SOCIAL HISTORY: History of THC. Remote history of nicotine dependence. REVIEW OF SYSTEMS: ENT: Diminished vision. Diminished hearing. Cardio system: As mentioned earlier. Respiratory: As mentioned earlier. GI no nausea or vomiting. no dysuria. Nervous system: As mentioned earlier. Allergy/Immunology: As mentioned earlier. Musculoskeletal: As mentioned earlier. Hematology/Oncology: No history of anemia. Endocrine: As mentioned earlier. Constitutional: As mentioned earlier. Dermatology: Negative. Rheumatology: Negative. Psychiatry: As mentioned earlier. PHYSICAL EXAMINATION: Alert and oriented x2. Pulse 87, blood pressure 148/92, respiration 18, temperature 97.6, pulse ox 94% on room air. HEENT: Conjunctivae normal, bruise on the left supraorbital area with 1 wound and 1 stitch 1 sutures present. Otherwise oral mucosa moist. Neck is no jugular venous distention. No carotid bruit. No lymph nodes enlargement. Cardiovascular system: S1, S2 muffled. No S3, no S4. Respiratory: Breath sounds diminished in the bases. Bilateral scattered rhonchi and crackles. Expiratory wheezing also present. ABDOMEN: Soft, nontender. No mass palpable. Legs no edema and no swelling. NERVOUS SYSTEM: Higher functions as mentioned earlier, moves all 4 limbs, no focal motor or sensory deficits. Lymphatics: No lymph nodes palpable in the neck, axillae or groin. Skin no ulcer, rash or bleeding. LABS: WBC 9.2, hemoglobin 13.8, and platelets 63. Sodium 139, potassium 3.9, creatinine 2.10 and troponin 0.472 and CK is 1127. UA noted. ASSESSMENT: 1. Syncope and fall of undetermined etiology. 2. Change in mental status, metabolic encephalopathy. 3. Troponin 0.472 indeterminate. 4. Increased CK with rhabdomyolysis. 5. Increased creatinine with possible acute on chronic kidney disease with chronic kidney disease stage 3 basal. 6. Urinary tract infection. 7. Possible THC. 8. History of atrial flutter. 9. History of coronary artery disease, coronary artery bypass grafting. 10.History of gastroesophageal reflux disease. 11.History of gastrointestinal bleed. 12.Hypertension. 13.Hyperlipidemia. 14.History of myocardial infarction. 15.History of urinary tract infections. 16.History of bladder, lung cancer, radiation and chemo. 17.History of degenerative joint disease, low back pain. 18.History of polysubstance abuse. 19.History of ischemic cardiomyopathy. 20.History of thrombocytopenia. 21.History of anxiety, depression. RECOMMENDATIONS AND DISCUSSION: In this 67-year-old gentleman who presented with multiple complex medical issues, we will monitor the patient closely, continue the current management and symptomatic treatment. We will hydrate the patient gently and we will also monitor the patient closely. Empiric antibiotics. Resume the home medications. Otherwise the CT scan of the head and cervical spine was done which showed only degenerative changes and normal CT of the brain. Recommend repeat labs in the morning. Resume the home medications. IV fluids. Guarded prognosis. PT, OT evaluation, possible ECF rehab. Overall prognosis extremely guarded because of multiple complex medical issues and further recommendations to follow. [id number] / IJN: [id number] /
[2017-06-27] MEDS: 0.9% NACL WITH KCL 40 MEQ/L 1,000 ML IV SCH (22:37)
[2017-06-27 23:04] LABS: Creatine Kinase MB 2.6 ng/mL (0.0-2.4)
[2017-06-27 23:05] LABS: Troponin I 0.567 ng/mL (0.000-0.034)
[2017-06-27] MEDS: BACLOFEN 10 MG TAB PO PRN (23:50)
[2017-06-27] MEDS: ATORVASTATIN 20 MG TAB PO SCH (23:51)
[2017-06-27] MEDS: ESCITALOPRAM 20 MG TAB PO SCH (23:51)
[2017-06-28] MEDS: traMADol 50 MG TAB PO PRN ×4 (05:12→21:45)
[2017-06-28] MEDS: ALPRAZolam 0.25 MG TAB PO PRN (05:12)
[2017-06-28] MEDS: BACLOFEN 10 MG TAB PO PRN (05:13)
[2017-06-28] MEDS: PANTOPRAZOLE 40 MG TABLET PO SCH ×2 (06:35→10:22)
[2017-06-28] MEDS: NITROGLYCERIN OINT 1 INCH/GM PACKET TOPICAL SCH ×3 (06:35→17:12)
[2017-06-28] MEDS: DILTIAZEM CD 120 MG CAP.ER.24H PO SCH ×2 (06:35→10:22)
[2017-06-28 07:04] LABS: Calcium 7.9 mg/dL (8.4-10.2); Potassium 3.7 mmol/L (3.5-5.1)
[2017-06-28 07:11] LABS: HCT 36.3 % (39.0-53.0); HGB 11.7 gm/dL (13.0-17.5); MCH 29.4 pg (25.0-35.0); MCHC 32.3 g/dL (31.0-37.0); MCV 91.1 fL (80.0-100.0); Mean Platelet Volume 12.5; RBC 3.98 m/uL (4.30-5.90); RDW 13.1 % (11.5-15.5); WBC 7.3 k/uL (3.8-10.6)
[2017-06-28 07:34] LABS: Platelet Count 40 k/uL (150-450)
[2017-06-28] MEDS: ASPIRIN 325 MG TAB PO SCH (07:57)
[2017-06-28] MEDS ORDERED: NON-FORMULARY DRUG (Tiotropium 18 Mcg/Puff 1 CAP) INHALATION SCH (08:00)
[2017-06-28] MEDS: IPRATROPIUM-ALBUTEROL 3 ML NEB INHALATION SCH ×4 (08:58→20:51)
[2017-06-28] MEDS ORDERED: CLOPIDOGREL 75 MG TAB PO SCH (09:00)
[2017-06-28 10:28] LABS: Band Neutrophils % 2 %; Lymphocytes # (M) 0.58 k/uL (1.0-4.8); Metamyelocytes # (M) 0.22 k/uL (0); Metamyelocytes % 3 %; Monocytes # (M) 0.37 k/uL (0-1.0); Myelocytes # (M) 0.15 k/uL (0); Myelocytes % 2 %; Neutrophils % (M) 82 %; Nucleated Red Blood Cells 0 /100 WBC (0-0); Total Cells Counted 200
[2017-06-28 10:29] LABS: Anisocytosis (M) Present; Large Platelets Present; Poikilocytosis (M) Present
[2017-06-28] MEDS: cefTRIAXone IN SWFI 1,000 MG/10 ML SYRINGE IVP SCH (10:36)
[2017-06-28] MEDS: METOPROLOL SUCCINATE (ER) 25 MG TAB.ER.24H PO SCH (10:37)
[2017-06-28] MEDS: EZETIMIBE 10 MG TAB PO SCH (10:37)
--- NOTE | 2017-06-28 11:25 | P.CRDCN ---
History of Present Illness Consult date: 06/28/17 Requesting physician: Alma Heard Reason for Consult (text): elevated troponin Chief complaint: dizziness, loss of consciousness History of present illness: Mr. Garcia is a pleasant 67-year-old gentleman with history of CAD, prior CABG, hypertension, dyslipidemia, GI bleed at which time aspirin was discontinued, and history of prior bladder cancer with metastasis to the lung which apparently he refused to have surgery to remove his bladder. He follows with Dr. Menendez in the office. He was brought to the emergency department with altered mental status he was apparently found on the floor by family. On admission, chest x-ray showed left basilar infiltrate and small effusion with pleural thickening which appeared to be present on a previous chest x-ray. EKG showed sinus rhythm with occasional PVCs and a right bundle branch block with evidence of a prior inferior infarct. Laboratory values were reviewed and showed a platelet count of 40, hemoglobin 11.7, potassium was 3.1 on admission with a repeat of 3.7 after supplementation, BUN 26 and creatinine 2.4. Troponins were found to be elevated at 0.119, 0.472 and 0.567. He was also found to be positive for a UTI and is been started on IV antibiotics. Urine drug screen was positive for opiates and marijuana. Office records were reviewed, patient underwent stress test in March 2017 that revealed no ischemia but a large inferior myocardial infarction 2-D echo with Doppler at that time showed a mildly impaired LV function with an EF of 45% with mild MR and trace AR. Upon examination, patient is sitting up in bed. He is alert and answering questions appropriately but slow to respond and somewhat drowsy. He does remember having an episode of dizziness and syncope and his home, he is unsure how long he was on the floor for. He denies episodes of chest discomfort that he can remember he does have some shortness of breath with activity and has noticed some mild lower extremity edema. Past Medical History Past Medical History: Atrial Flutter, Coronary Artery Disease (CAD), Cancer, GERD/Reflux, GI Bleed, Hyperlipidemia, Hypertension, Myocardial Infarction (HI) , Osteoarthritis (OA) Additional Past Medical History / Comment(s): Recent UTI and completed antibiotics, bladder/lung cancers tx with radiation and chemo, DDD, chronic low back pain with radiculopathy, metabolic encephalopathy with AMS 2ndary to polysubstance abuse-son states pt now adhering to pain medication as ordered, ischemic cardiomyopathy, coma post HI, lower GI bleed, STEBBINS/tinnitis bilaterally , thrombocytopenia. Last Myocardial Infarction Date:: 2010 History of Any Multi-Drug Resistant Organisms: None Reported Past Surgical History: Coronary Bypass/CABG, Heart Catheterization, Orthopedic Surgery Additional Past Surgical History / Comment(s): R knee arthroplasty, R shoulder surgery, colonoscopy, multiple pain procedures, 2010 CABG 4 vessel, 2010 PCI with 2 stents. Past Anesthesia/Blood Transfusion Reactions: No Reported Reaction Smoking Status: Former smoker - Past Family History Son(s) Additional Family Medical History / Comment(s): Son at age 32 from brain aneurysm Mother Family Medical History: Congestive Heart Failure (CHF) Additional Family Medical History / Comment(s): HEART SWELLED Medications and Allergies Home Medications Medication Instructions Recorded Confirmed Type Atorvastatin [Lipitor] 20 mg PO HS 08/20/14 06/27/17 History Clopidogrel [Plavix] 75 mg PO DAILY 08/20/14 06/27/17 History Escitalopram [Lexapro] 20 mg PO DAILY 08/20/14 06/27/17 History Ezetimibe [Zetia] 10 mg PO DAILY 08/20/14 06/27/17 History Metoprolol Succinate [Toprol XL] 25 mg PO DAILY 08/20/14 06/27/17 History Nitroglycerin Sl Tabs [Nitrostat] 0.4 mg PO Q5M PRN 08/20/14 06/27/17 History Albuterol Sulfate [Proair Hfa] 2 puff INHALATION RT-QID PRN 10/27/15 06/27/17 History Diltiazem HCl [Diltiazem 24Hr ER] 120 mg PO AC-BRKFST 10/27/15 06/27/17 History Omeprazole 20 mg PO DAILY 10/27/15 06/27/17 History Tiotropium 18 Mcg/Puff [Spiriva] 1 cap INHALATION RT-DAILY 10/27/15 06/27/17 History HYDROcodone/APAP 7.5-325MG [Sutter 1 tab PO Q6HR PRN 06/12/17 06/27/17 History 7.5-325] traZODone HCL 50 - 100 mg PO HS PRN 06/12/17 06/27/17 History ALPRAZolam [ALPRAZolam] 1 mg PO Q8H PRN 06/27/17 06/27/17 History Baclofen [Lioresal] 20 mg PO Q6H PRN 06/27/17 06/27/17 History traMADol HCL [Ultram] 50 mg PO Q4HR PRN 06/27/17 06/27/17 History Allergies Allergy/AdvReac Type Severity Reaction Status Date / Time propoxyphene HCl Allergy Dyspnea Verified 06/27/17 11:46 [From Darvon] propoxyphene napsylate Allergy Unknown Verified 06/27/17 11:46 [From Darvocet-N] aspirin AdvReac Unknown Verified 06/27/17 11:46 Physical Exam Vitals: Vital Signs Temp Pulse Pulse Pulse Resp BP BP 06/28/17 09:01 92 06/28/17 04:00 97.7 F 94 17 133/73 06/28/17 00:00 97.7 F 86 17 151/76 06/27/17 20:00 97.7 F 98 17 144/79 06/27/17 16:00 97.6 F 87 87 18 06/27/17 15:44 98.2 F 88 20 147/92 06/27/17 15:16 84 20 177/86 06/27/17 14:16 81 20 165/84 06/27/17 13:16 94 20 183/86 06/27/17 12:46 88 20 163/85 06/27/17 12:16 97 20 166/94 06/27/17 11:46 87 20 179/94 06/27/17 11:16 97 20 165/96 06/27/17 11:01 101 H 20 174/98 06/27/17 10:46 89 20 174/95 06/27/17 10:31 93 20 180/100 06/27/17 10:16 97.2 F L 98 20 191/102 BP Pulse Ox 06/28/17 09:01 94 L 06/28/17 04:00 94 L 06/28/17 00:00 94 L 06/27/17 20:00 93 L 06/27/17 16:00 148/92 95 06/27/17 15:44 95 06/27/17 15:16 95 06/27/17 14:16 95 06/27/17 13:16 95 06/27/17 12:46 95 06/27/17 12:16 95 06/27/17 11:46 95 06/27/17 11:16 06/27/17 11:01 06/27/17 10:46 06/27/17 10:31 06/27/17 10:16 96 Intake and Output 06/27/17 06/28/17 06/28/17 22:59 06:59 14:59 Intake Total 375 Balance 375 Intake: Intake, IV Titration 375 Amount 0.9% NaCl with KCl 40 Meq 375 /l 1,000 ml @ 75 mls/hr IV .[id number] [facility] Rx#: [id number] Other: Voiding Method Incontinent # Voids 1 1 Weight 70 kg PHYSICAL EXAMINATION: HEENT: Head is atraumatic, normocephalic. Pupils equal, round. Neck is supple. There is no elevated jugular venous pressure. HEART EXAMINATION: Heart sounds regular, S1 and S2 normal. No murmur or gallop heard. CHEST EXAMINATION: Lungs reveal scattered rhonchi bilaterally with diminished bases. No chest wall tenderness is noted on palpation or with deep breathing. ABDOMEN: Soft, nontender. Bowel sounds are heard. No organomegaly noted. EXTREMITIES: diminished peripheral pulses with evidence of trace peripheral edema and no calf tenderness noted. NEUROLOGIC patient is awake, drowsy and oriented to person and place. . Results 06/28/17 06:14 06/28/17 06:14 Cardiac Enzymes 06/27/17 06/27/17 06/27/17 Range/Units 10:40 10:40 16:27 AST 126 H (17-59) U/L CK-MB (CK-2) 2.4 3.0 H* (0.0-2.4) ng/mL Troponin I 0.119 H* 0.472 H* (0.000-0.034) ng/mL 06/27/17 Range/Units 22:11 AST (17-59) U/L CK-MB (CK-2) 2.6 H* (0.0-2.4) ng/mL Troponin I 0.567 H* (0.000-0.034) ng/mL Coagulation 06/27/17 Range/Units 10:40 PT 10.3 (9.0-12.0) sec APTT 23.7 (22.0-30.0) sec Lipids 06/28/17 Range/Units 06:14 Triglycerides 125 (<150) mg/dL Cholesterol 102 (<200) mg/dL HDL Cholesterol 25 L (40-60) mg/dL CBC 06/27/17 06/28/17 Range/Units 10:40 06:14 WBC 9.5 7.3 (3.8-10.6) k/uL RBC 4.66 3.98 L (4.30-5.90) m/uL Hgb 13.8 11.7 L (13.0-17.5) gm/dL Hct 42.9 36.3 L (39.0-53.0) % Plt Count 53 L 40 L* (150-450) k/uL Comprehensive Metabolic Panel 06/27/17 06/28/17 Range/Units 10:40 06:14 Sodium 139 136 L (137-145) mmol/L Potassium 3.1 L 3.7 (3.5-5.1) mmol/L Chloride 96 L 101 (98-107) mmol/L Carbon Dioxide 29 27 (22-30) mmol/L BUN 26 H 26 H (9-20) mg/dL Creatinine 2.10 H 2.40 H (0.66-1.25) mg/dL Glucose 116 H 91 (74-99) mg/dL Calcium 8.8 7.9 L (8.4-10.2) mg/dL AST 126 H (17-59) U/L ALT 25 (21-72) U/L Alkaline Phosphatase 69 (38-126) U/L Total Protein 6.4 (6.3-8.2) g/dL Albumin 3.6 (3.5-5.0) g/dL Current Medications Generic Name Dose Route Start Last Admin Trade Name Freq PRN Reason Stop Dose Admin Albuterol/Ipratropium 3 ml 06/28/17 08:00 06/28/17 08:58 Duoneb 0.5 Mg-3 Mg/3 Ml Soln INHALATION 3 ml RT-QID [facility]ESSIE Administration Alprazolam 0.25 mg 06/27/17 20:33 06/28/17 05:12 Xanax PO 0.25 mg Q8H PRN Administration Anxiety Aspirin 325 mg 06/28/17 09:00 06/28/17 07:57 Aspirin PO Not Given DAILY [facility] Atorvastatin Calcium 20 mg 06/27/17 21:00 06/27/17 23:51 Lipitor PO 20 mg HS [facility] Administration Baclofen 20 mg 06/27/17 20:33 06/28/17 05:13 Lioresal PO 20 mg Q6H PRN Administration Muscle Pain Ceftriaxone Sodium 1,000 mg 06/28/17 09:00 Rocephin IVP Q24HR [facility] Clopidogrel Bisulfate 75 mg 06/28/17 09:00 Plavix PO DAILY [facility] Diltiazem HCl 120 mg 06/28/17 07:30 [facility] Cd [facility] Ezetimibe 10 mg 06/28/17 09:00 Zetia PO DAILY [facility] Escitalopram Oxalate 20 mg 06/27/17 21:00 06/27/17 23:51 Lexapro PO 20 mg HS [facility] Administration Potassium Chloride/Sodium Chloride 1,000 mls @ 75 mls/hr 06/27/17 20:45 06/27 22:37 Ns-Kcl 40 Meq/L Iv Solution IV 75 mls/hr .[id number] [facility] Administration Metoprolol Succinate 25 mg 06/28/17 09:00 Toprol Xl PO DAILY [facility] Nitroglycerin 1 inch 06/27/17 18:00 06/28/17 06:35 Nitro-Bid Oint TOPICAL 1 inch Q6HR [facility] Administration Nitroglycerin 0.4 mg 06/27/17 13:46 Nitrostat SUBLINGUAL Q5M PRN Chest Pain Pantoprazole Sodium 40 mg 06/28/17 07:30 Protonix PO -[facility] Tramadol HCl 50 mg 06/27/17 20:33 06/28/17 05:12 Ultram PO 50 mg Q4HR PRN Administration Pain Trazodone HCl 50 mg 06/27/17 20:33 06/27/17 23:50 Desyrel PO 50 mg HS PRN Administration Insomnia Intake and Output 06/27/17 06/28/17 06/28/17 22:59 06:59 14:59 Intake Total 375 Balance 375 Intake: Intake, IV Titration 375 Amount 0.9% NaCl with KCl 40 Meq 375 /l 1,000 ml @ 75 mls/hr IV .[id number] [facility] Rx#: [id number] Other: Voiding Method Incontinent # Voids 1 1 Weight 70 kg 06/28/17 06:14 06/28/17 06:14 EKG Interpretations (text) Sinus rhythm with PVCs, right bundle branch block and evidence of a prior inferior HI Assessment and Plan Assessment: #1 episode of dizziness with loss of consciousness #2 altered mental status #3 elevated troponin #4 rhabdomyolysis with elevated CPK #5 acute and chronic renal failure #6 urinary tract infection #7 history of CAD with prior CABG #8 ischemic cardiomyopathy last known ejection fraction 45% #9 hypertension #10 and marijuana use #11 history of bladder CA with metastasis Plan: From cardiology perspective, we'll obtain a 2-D echo with Doppler to assess LV function. We will hold Plavix due to thrombocytopenia. We recommend a hematology consult, patient has followed with Dr. Corona in the past. At this time we recommend medical management due to multiple core morbidities including acute on chronic renal failure and altered mental status. Further recommendations to follow PSYCHOLOGY TECHNICIAN note has been reviewed, I agree with a documented findings and plan of care. Patient was seen and examined.
[2017-06-28] MEDS: 0.9% NACL WITH KCL 40 MEQ/L 1,000 ML IV SCH (12:39)
--- NOTE | 2017-06-28 13:05 | ECHOF ---
Referral Reason:syncope, elevated troponin MEASUREMENTS -------- HEIGHT: 182.9 cm WEIGHT: 69.9 kg BP: 150/89 RVIDd: 3.5 cm (< 3.3) IVSd: 1.2 cm (0.6 - 1.1) LVIDd: 5.2 cm (3.9 - 5.3) LVPWd: 1.1 cm (0.6 - 1.1) IVSs: 1.7 cm LVIDs: 4.3 cm LVPWs: 1.2 cm LAESV Index (A-L): 20.87 ml/m Ao Diam: 3.3 cm (2.0 - 3.7) AV Cusp: 1.8 cm (1.5 - 2.6) LA Diam: 2.7 cm (2.7 - 3.8) MV EXCURSION: 18.742 mm (> 18.000) MV EF SLOPE: 108 mm/s (70 - 150) EPSS: 1.3 cm MV E Arpit: 0.69 m/s MV DecT: 215 ms MV A Arpit: 1.02 m/s MV E/A Ratio: 0.67 RAP: 5.00 mmHg RVSP: 14.71 mmHg FINDINGS -------- Sinus rhythm. This was a technically difficult study with suboptimal views. The left ventricular size is normal. There is borderline concentric left ventricular hypertrophy. There is moderate global hypokinesis of LV . Overall left ventricular systolic function is moderat eden impaired with, an EF between 35 - 40 %. The right ventricle is mildly enlarged. Normal LA size by volume 22+/-6 ml/m2. RA appears enlarged. 2ml of Lumason was utilized for enhancement of images. Aortic valve is trileaflet and is mildly thickened. The mitral valve leaflets are mildly thickened. Mild mitral regurgitation is present. No regurgitation noted Right ventricular systolic pressure is normal at < 35 mmHg. There is no ev idence of pulmonary hypertension. The pulmonic valve was not well visualized. There is no pulmonic regurgitation present. The aortic root size is normal. Normal inferior vena cava with normal inspiratory collapse consistent with estimated right atrial pre ssure of 5 mmHg. There is no pericardial effusion. CONCLUSIONS -------- 1. Sinus rhythm. 2. This was a technically difficult study with suboptimal views. 3. The left ventricular size is normal. 4. There is borderline concentric left ventricular hypertrophy. 5. There is moderate global hypokinesis of LV . 6. Overall left ventricular systolic function is moderately impaired with, an EF between 35 - 40 %. 7. The right ventricle is mildly enlarged. 8. Normal LA size by volume 22+/-6 ml/m2. 9. RA appears enlarged. 10. 2ml of Lumason was utilized for enhancement of images. 11. Aortic valve is trileaflet and is mildly thickened. 12. The mitral valve leaflets are mildly thickened. 13. Mild mitral regurgitation is present. 14. No regurgitation noted 15. Right ventricular systolic pressure is normal at < 35 mmHg. 16. The pulmonic valve was not well visualized. 17. There is no pulmonic regurgitation present. 18. The aortic root size is normal. 19. There is no pericardial effusion. INDUSTRIAL RELATIONS MANAGER: Ricky Brantley RDCS
[2017-06-28] MEDS ORDERED: HYDROmorphone 0.5 MG/0.5 ML SYRINGE IVP PRN (13:35)
[2017-06-28 13:57] LABS: Bilirubin Confirmation, Urine QNS (Negative)
[2017-06-28] MEDS: HYDROcodone/APAP 7.5-325MG 1 EACH TAB PO PRN ×2 (17:21→23:39)
--- NOTE | 2017-06-28 19:11 | P.PN ---
Subjective Progress Note Date: 06/28/17 Progress note being dictated for Dr. Heard. Interval history: This is a 67-year-old gentleman admitted with syncope, fall, acute metabolic encephalopathy, elevated troponins, rhabdomyolysis, renal failure, UTI and multiple other medical issues. Maintained on gentle IV fluid hydration, empiric antibiotics. Mildly worsening renal function. CK improving. Sensorium significantly improved. Evaluated by cardiology with recommendations noted. Evaluated by physical therapy with subacute rehab recommended at discharge. Troponins 0.119, 0.472, 0.567. Afebrile, normal WBC. Urine culture negative. Pulmonary blood cultures negative. Echo suboptimal, reporting moderately impaired LV function, EF 35-40%. Objective - Vital Signs Vital signs: Vital Signs Temp 97.6 F 06/28/17 17:10 Pulse 80 06/28/17 17:10 Resp 16 06/28/17 17:10 BP 136/84 06/28/17 17:10 Pulse Ox 90 L 06/28/17 17:10 Intake & Output 06/27/17 06/28/17 06/28/17 18:59 06:59 18:59 Intake Total 375 480 Balance 375 480 Weight 68.039 kg 70 kg Intake: Intake, IV Titration 375 Amount 0.9% NaCl with KCl 40 Meq 375 /l 1,000 ml @ 75 mls/hr IV .[id number] [facility] Rx#: [id number] Oral 480 Other: Voiding Method Incontinent Diaper Incontinent # Voids 1 1 2 - Exam PHYSICAL EXAM: VITAL SIGNS: As above GENERAL: Sitting up in bed, no acute distress HEENT: Conjunctivae normal. eyes normal. Left orbital Bruising , suture present, oral mucosa moist NECK: No JVD. No thyroid enlargement. No LNs CARDIOVASCULAR: S1, S2 muffled. No murmur RESPIRATION: Breath sounds diminished in the bases. Scattered rhonchi and crackles. expiratory wheezes ABDOMEN: Soft, nontender . No guarding. no masses palpable.Bowel sounds heard. LEGS: No edema. no swelling PSYCHIATRY: Alert and oriented -2, mood and affect normal. NERVOUS SYSTEM: Cranial N 2-12 grossly normal. Moves all 4 limbs. Diffuse weakness No focal deficits. Skin: no ulcer no rash Joints: No active swelling. No inflammation. Lymphatic system. No LN neck axilla or groin. - Labs CBC & Chem 7: 06/28/17 06:14 06/28/17 06:14 Labs: Abnormal Lab Results - Last 24 Hours (Table) 06/27/17 06/28/17 06/28/17 Range/Units 22:11 06:14 06:14 RBC 3.98 L (4.30-5.90) m/uL Hgb 11.7 L (13.0-17.5) gm/dL Hct 36.3 L (39.0-53.0) % Plt Count 40 L* (150-450) k/uL Lymphocytes # (Manual) 0.58 L (1.0-4.8) k/uL Metamyelocytes # (Man) 0.22 H (0) k/uL Myelocytes # (Manual) 0.15 H (0) k/uL Sodium 136 L (137-145) mmol/L BUN 26 H (9-20) mg/dL Creatinine 2.40 H (0.66-1.25) mg/dL Calcium 7.9 L (8.4-10.2) mg/dL Total Creatine Kinase 753 H (55-170) U/L CK-MB (CK-2) 2.6 H* (0.0-2.4) ng/mL Troponin I 0.567 H* (0.000-0.034) ng/mL HDL Cholesterol 25 L (40-60) mg/dL Microbiology - Last 24 Hours (Table) 06/27/17 10:40 Urine Culture - Final Urine,Catheterized 06/27/17 10:40 Blood Culture - Preliminary Blood No Growth after 24 hours Assessment and Plan Assessment: 1. Syncope, fall of undetermined etiology 2. Change in mental status, acute metabolic encephalopathy 3. Troponin 0.472, indeterminate 4. rhabdomyolysis 5. Acute on chronic renal failure, stage III 6. Acute UTI 7 possible THC abuse 8. Polysubstance abuse, history of 9. CAD 10. Thrombocytopenia Plan: Continue on current medication regime ,monitoring and symptomatic treatment. Oncology/hematology consulted with recommendations pending. Maintain nebulized bronchodilators and empiric antibiotics. Follow cultures closely. Further recommendations to follow. Social work assistance in potential subacute rehab at discharge. The impression and plan of care has been dictated as directed. : I performed a history and examination of this patient, discussed the same with the dictator. I agree with the dictator's note ,documented as a scribe. Any additional findings or plans will be noted.
[2017-06-28] MEDS: ESCITALOPRAM 20 MG TAB PO SCH (21:45)
[2017-06-28] MEDS: ATORVASTATIN 20 MG TAB PO SCH (21:47)
[2017-06-29] MEDS: NITROGLYCERIN OINT 1 INCH/GM PACKET TOPICAL SCH ×5 (00:15→21:58)
--- NOTE | 2017-06-29 01:32 | P.CONS ---
History of Present Illness - Reason for Consult Consult date: 06/28/17 - History of Present Illness Mr Garcia is a 67 yr old male pt, of Dr Carter, who initially presented with gross hematuria,had a CT urogram on 07/16/2014 which revealed 2.5cm mass in posterior lateral bladder wall. 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 On 08/13/2014,CT scan of chest revealed a new 6 x8mm LLL lung nodule compared to chest CT in 04/2012. On 08/13/[address] scan was negative. On 08/21/2014,PET scan revealed suspicious uptake in left lateral bladder wall and very suspicious uptake in the left lung nodule consistent with metastatic disease. On 08/25/2014,he started cisplatin/UPHOLSTERER ASSEMBLY LINE-16. Repeat CT scan of chest/abdomen/ pelvis on 09/28/2014 revealed thickening of bladder wall,no systemic disease. CT scan of brain on 10/01/2014 was negative for metastatic disease. He started cycle#3 on 10/06/2014,however,he had confusion,it was discontinued and transferred to the hospital,it was felt that he had delirium from UTI and his symptoms resolved after treatment. He had total of 4 cycles completed on 10/29/2014. Repeat CT scan of chest/ abdomen/pelvis on 12/01/2014 revealed no evidence of disease. He started concurrent cisplatin/radiation on 01/09/2015 and completed treatment end of . Brain MRI done on 03/16/2015 revealed no evidence of metastatic disease. Repeat cystoscopy in revealed no evidence of disease. Repeat CT scan of chest/abdomen/pelvis on 09/27/2015 revealed no evidence of recurrence. Repeat CT scan of chest/abdomen/pelvis on 07/23/2016 revealed no evidence of recurrence,stable bladder wall thickening. Repeat CT scan of chest/abdomen/pelvis on 04/04/2017,revealed no evidence of progression,stable bladder wall thickening. The pt was in the ER on 06/12/17 with weakness and MS changes. He improved with hydration, and was discharged on antibiotics. Apparently, the pt remained weak, and again developed similiar symptoms with progression. He fell and hurt the left side of his face and head. He was brought back to the ER and was admitted. Urinalysis was again abnormal. The pt reported bleeding in the urine, and some discomfort with urination. Labs showed troponin elevation Review of Systems Constitutional: Reports fatigue, Reports poor appetite, Reports weakness Eyes: denies blurred vision, denies pain Ears: deny: decreased hearing, ear discharge, earache, tinnitus Ears, nose, mouth and throat: Denies headache, Denies sore throat Cardiovascular: Reports decreased exercise tolerance Respiratory: Denies cough Gastrointestinal: Denies abdominal pain, Denies diarrhea, Denies nausea, Denies vomiting Genitourinary: Reports as per HPI, Reports dysuria, Reports hematuria, Reports urinary frequency Musculoskeletal: Reports muscle weakness Integumentary: Denies pruritus, Denies rash Neurological: Reports change in mentation, Reports weakness Psychiatric: Reports confusion Endocrine: Reports fatigue Hematologic/Lymphatic: Reports as per HPI Past Medical History Past Medical History: Atrial Flutter, Coronary Artery Disease (CAD), Cancer, GERD/Reflux, GI Bleed, Hyperlipidemia, Hypertension, Myocardial Infarction (PR) , Osteoarthritis (OA) Additional Past Medical History / Comment(s): Recent UTI and completed antibiotics, bladder/lung cancers tx with radiation and chemo, DDD, chronic low back pain with radiculopathy, metabolic encephalopathy with AMS 2ndary to polysubstance abuse-son states pt now adhering to pain medication as ordered, ischemic cardiomyopathy, coma post PR, lower GI bleed, OSAGE/tinnitis bilaterally , thrombocytopenia. Last Myocardial Infarction Date:: 2010 History of Any Multi-Drug Resistant Organisms: None Reported Past Surgical History: Coronary Bypass/CABG, Heart Catheterization, Orthopedic Surgery Additional Past Surgical History / Comment(s): R knee arthroplasty, R shoulder surgery, colonoscopy, multiple pain procedures, 2010 CABG 4 vessel, 2010 PCI with 2 stents. Past Anesthesia/Blood Transfusion Reactions: No Reported Reaction Smoking Status: Former smoker - Past Family History Son(s) Additional Family Medical History / Comment(s): Son at age 32 from brain aneurysm Mother Family Medical History: Congestive Heart Failure (CHF) Additional Family Medical History / Comment(s): HEART SWELLED Medications and Allergies Home Medications Medication Instructions Recorded Confirmed Type Atorvastatin [Lipitor] 20 mg PO HS 08/20/14 06/27/17 History Clopidogrel [Plavix] 75 mg PO DAILY 08/20/14 06/27/17 History Escitalopram [Lexapro] 20 mg PO DAILY 08/20/14 06/27/17 History Ezetimibe [Zetia] 10 mg PO DAILY 08/20/14 06/27/17 History Metoprolol Succinate [Toprol XL] 25 mg PO DAILY 08/20/14 06/27/17 History Nitroglycerin Sl Tabs [Nitrostat] 0.4 mg PO Q5M PRN 08/20/14 06/27/17 History Albuterol Sulfate [Proair Hfa] 2 puff INHALATION RT-QID PRN 10/27/15 06/27/17 History Diltiazem HCl [Diltiazem 24Hr ER] 120 mg PO AC-BRKFST 10/27/15 06/27/17 History Omeprazole 20 mg PO DAILY 10/27/15 06/27/17 History Tiotropium 18 Mcg/Puff [Spiriva] 1 cap INHALATION RT-DAILY 10/27/15 06/27/17 History HYDROcodone/APAP 7.5-325MG [[place] 1 tab PO Q6HR PRN 06/12/17 06/27/17 History 7.5-325] traZODone HCL 50 - 100 mg PO HS PRN 06/12/17 06/27/17 History ALPRAZolam [ALPRAZolam] 1 mg PO Q8H PRN 06/27/17 06/27/17 History Baclofen [Lioresal] 20 mg PO Q6H PRN 06/27/17 06/27/17 History traMADol HCL [Ultram] 50 mg PO Q4HR PRN 06/27/17 06/27/17 History Allergies Allergy/AdvReac Type Severity Reaction Status Date / Time propoxyphene HCl Allergy Dyspnea Verified 06/27/17 11:46 [From Darvon] propoxyphene napsylate Allergy Unknown Verified 06/27/17 11:46 [From Darvocet-N] aspirin AdvReac Unknown Verified 06/27/17 11:46 Physical Exam Vitals: Vital Signs Temp Pulse Pulse Resp BP Pulse Ox 06/28/17 11:10 97.4 F L 85 18 149/87 93 L 06/28/17 10:00 18 06/28/17 09:15 96 06/28/17 09:01 92 94 L 06/28/17 08:00 97.9 F 88 24 150/89 94 L 06/28/17 04:00 97.7 F 94 17 133/73 94 L 06/28/17 00:00 97.7 F 86 17 151/76 94 L 06/27/17 20:00 97.7 F 98 17 144/79 93 L Intake and Output 06/28/17 06/28/17 06/28/17 06:59 14:59 22:59 Intake Total 375 240 Balance 375 240 Intake: Intake, IV Titration 375 Amount 0.9% NaCl with KCl 40 Meq 375 /l 1,000 ml @ 75 mls/hr IV .[id number] BESSIE Rx#: [id number] Oral 240 Other: Voiding Method Diaper Incontinent # Voids 1 1 Weight 70 kg - Constitutional General appearance: no acute distress - EENT left periorbital bruising Eyes: EOMI, PERRLA ENT: hearing grossly normal, normal oropharynx - Neck Neck: no lymphadenopathy Thyroid: bilateral: normal size - Respiratory Respiratory: bilateral: CTA - Cardiovascular Rhythm: regular Heart sounds: normal: S1, S2 - Gastrointestinal General gastrointestinal: distended, soft Localized gastrointestinal: tender: RLQ, LLQ - Integumentary Integumentary: normal - Neurologic Neurologic: CNII-XII intact - Musculoskeletal Musculoskeletal: generalized weakness, strength equal bilaterally - Psychiatric slow affect Psychiatric: A&O x's 3 Results CBC & Chem 7: 06/28/17 06:14 06/28/17 06:14 Labs: Abnormal Lab Results - Last 24 Hours (Table) 06/27/17 06/27/17 06/28/17 Range/Units 16:27 22:11 06:14 RBC (4.30-5.90) m/uL Hgb (13.0-17.5) gm/dL Hct (39.0-53.0) % Plt Count (150-450) k/uL Lymphocytes # (Manual) (1.0-4.8) k/uL Metamyelocytes # (Man) (0) k/uL Myelocytes # (Manual) (0) k/uL Sodium 136 L (137-145) mmol/L BUN 26 H (9-20) mg/dL Creatinine 2.40 H (0.66-1.25) mg/dL Calcium 7.9 L (8.4-10.2) mg/dL Total Creatine Kinase 1127 H 753 H (55-170) U/L CK-MB (CK-2) 3.0 H* 2.6 H* (0.0-2.4) ng/mL Troponin I 0.472 H* 0.567 H* (0.000-0.034) ng/mL HDL Cholesterol 25 L (40-60) mg/dL 06/28/17 Range/Units 06:14 RBC 3.98 L (4.30-5.90) m/uL Hgb 11.7 L (13.0-17.5) gm/dL Hct 36.3 L (39.0-53.0) % Plt Count 40 L* (150-450) k/uL Lymphocytes # (Manual) 0.58 L (1.0-4.8) k/uL Metamyelocytes # (Man) 0.22 H (0) k/uL Myelocytes # (Manual) 0.15 H (0) k/uL Sodium (137-145) mmol/L BUN (9-20) mg/dL Creatinine (0.66-1.25) mg/dL Calcium (8.4-10.2) mg/dL Total Creatine Kinase (55-170) U/L CK-MB (CK-2) (0.0-2.4) ng/mL Troponin I (0.000-0.034) ng/mL HDL Cholesterol (40-60) mg/dL Microbiology - Last 24 Hours (Table) 06/27/17 10:40 Urine Culture - Final Urine,Catheterized 06/27/17 10:40 Blood Culture - Preliminary Blood No Growth after 24 hours Abdominal x-ray: report reviewed Assessment and Plan (1) Altered mental status Narrative/Plan: The pt is improved with hydration and antibiotics. Thus the cause could be due to dehydration and persistent UTI, as well as JOSIAH. Follow with hydration and antibiotics. If this is persistent, repeat brain imaging with contrast , assuming renal function improves Current Visit: Yes Status: Acute Code(s): R41.82 - ALTERED MENTAL STATUS, UNSPECIFIED SNOMED Code(s): 541708484 (2) Bladder cancer Narrative/Plan: The pt achieved VIGNESH after treatment, with no evidence of progression on Ct scans in 04/05. He is c/o some new abdominal discomfort. Check restaging CT scans. I will wait to see if Cr diminishes with hydration over the next 1-2 days , ad then order with contrast if procedure Current Visit: No Status: Acute Code(s): C67.9 - MALIGNANT NEOPLASM OF BLADDER, UNSPECIFIED SNOMED Code(s): 781530171 (3) Hematuria Narrative/Plan: The pt has been having urinary symptoms as noted in the HPI. The pt was to f/ u with Urology for repeat cystoscopy, but had not done so. Urology will be consulted Current Visit: Yes Status: Acute Code(s): R31.9 - HEMATURIA, UNSPECIFIED SNOMED Code(s): 45159022 (4) Thrombocytopenia Narrative/Plan: This is most likely due to effect of recent infection, on a bone marrow affected by prior chemo. Plt counts were 40 today. This is expected to improve spontaneously, as his general condition improves. Continue to follow. The pt can be started on anto plt therapy once plt counts are > 50 Current Visit: Yes Status: Acute Code(s): D69.6 - THROMBOCYTOPENIA, UNSPECIFIED SNOMED Code(s): 865066921
[2017-06-29] MEDS: 0.9% NACL WITH KCL 40 MEQ/L 1,000 ML IV SCH ×2 (04:07→15:08)
[2017-06-29] MEDS: PANTOPRAZOLE 40 MG TABLET PO SCH (06:39)
[2017-06-29] MEDS: DILTIAZEM CD 120 MG CAP.ER.24H PO SCH (06:39)
[2017-06-29] MEDS: traMADol 50 MG TAB PO PRN (06:40)
[2017-06-29 07:06] LABS: HGB 12.1 gm/dL (13.0-17.5); MCH 29.6 pg (25.0-35.0); MCHC 31.8 g/dL (31.0-37.0); MCV 92.8 fL (80.0-100.0); Mean Platelet Volume 11.4; RBC 4.09 m/uL (4.30-5.90); RDW 13.2 % (11.5-15.5); WBC 9.4 k/uL (3.8-10.6)
[2017-06-29 07:10] LABS: Platelet Count 39 k/uL (150-450)
[2017-06-29 07:23] LABS: Calcium 8.1 mg/dL (8.4-10.2)
[2017-06-29] MEDS: ASPIRIN 325 MG TAB PO SCH (08:21)
[2017-06-29] MEDS: METOPROLOL SUCCINATE (ER) 25 MG TAB.ER.24H PO SCH (08:28)
[2017-06-29] MEDS: EZETIMIBE 10 MG TAB PO SCH (08:28)
[2017-06-29] MEDS: cefTRIAXone IN SWFI 1,000 MG/10 ML SYRINGE IVP SCH (08:29)
[2017-06-29] MEDS: IPRATROPIUM-ALBUTEROL 3 ML NEB INHALATION SCH ×4 (08:41→21:11)
[2017-06-29] MEDS: IOHEXOL 350 MG/ML 25 ML BOTTLE (ORAL USE) PO PRN ×2 (10:14→11:16)
[2017-06-29 10:59] LABS: Band Neutrophils % 2 %; Eosinophils # (M) 0.19 k/uL (0-0.7); Lymphocytes # (M) 0.66 k/uL (1.0-4.8); Monocytes # (M) 0.85 k/uL (0-1.0); Neutrophils % (M) 80 %; Nucleated Red Blood Cells 0 /100 WBC (0-0); Total Cells Counted 100
--- NOTE | 2017-06-29 12:37 | CT ---
EXAMINATION TYPE: CT ChestAbdPelvis wo con DATE OF EXAM: 06/29/2017 COMPARISON: Previous study dated 04/04/2017. HISTORY: Bladder CA, hematuria, back pain CT DLP: 462.5 mGycm Automated exposure control for dose reduction was used. TECHNIQUE: Helical acquisition through the abdomen and pelvis was obtained with oral but without intr avenous contrast. The data was formatted in the axial, coronal and sagittal projections. FINDINGS: There is consolidation in the posterior segment of the right upper lobe. There is also some consolidation in the apical posterior segment of the left upper lobe. There is a small left-sided ef fusion. There is a calcified granuloma in the anterior segment of the left upper lobe and scattered g ranulomas elsewhere throughout both lungs. Pretracheal lymph node measured previously at 9.8 mm today measures 10.6 mm. There is shotty adenopat hy in the aortopulmonary window. There is calcified subcarinal lymph nodes as well as left hilar lymp h nodes. There is no pericardial fluid. The heart is not enlarged. There is coronary artery and other vascular calcifications present. There is a small hiatal hernia. Within the abdomen, there are poorly visualized low attenuating lesions within the liver which have b een previously documented as cysts. This granulomatous change in the spleen. The gallbladder is unrem arkable. Both adrenal glands are normal. There is bilateral hydronephrosis and hydroureter. The pancreas appears unremarkable. There is fullness in the periaortic and pericaval region. I could not exclude adenopathy in this vinod on. I am also suspicious that there is iliac adenopathy with a right external iliac node measuring 2. 2 cm. There is gross thickening of the bladder wall anteriorly and this appears to have worsened. There is also now thickening in the right lateral aspect of the bladder wall and the trigone of the bladder on the right. There are scattered diverticula in the sigmoid region without radiographic evidence of diverticulitis . The appendix appears normal. Small bowel loops appear normal. There is no significant free fluid and there is no evidence of free air. There is anasarca involving the anterior lower abdomen. There is edema involving the penis. There are sclerotic foci in the left femur and femoral head, unchanged from previous. There is degene rative disc disease and facet arthropathy throughout the spine. No destructive bone lesions are seen. IMPRESSION: 1. BILATERAL UPPER LOBE PNEUMONIAS. 2. EVIDENCE OF OLD GRANULOMATOUS DISEASE INVOLVING THE LUNGS AND SPLEEN. 3. ENLARGING PRETRACHEAL LYMPH NODE. 4. SMALL HIATAL HERNIA. 5. PROBABLE HEPATIC CYSTS. 6. BILATERAL HYDROURETER AND HYDRONEPHROSIS. 7. WORSENING THICKENING OF THE BLADDER NOW EXTENDING TO THE RIGHT LATERAL ASPECT OF THE BLADDER AND R IGHT TRIGONE. 7. ENLARGING PARA-AORTIC, PARACAVAL AND BILATERAL ILIAC ADENOPATHY. 8. UNCOMPLICATED DIVERTICULOSIS OF THE COLON. 9. DEGENERATIVE CHANGES WITHIN THE SPINE. 10. STABLE SCLEROTIC FOCI WITHIN THE LEFT FEMUR. 11. SOFT TISSUE EDEMA INVOLVING THE ANTERIOR ASPECT OF THE PELVIS. 12. PENILE SWELLING.
--- NOTE | 2017-06-29 14:19 | P.PN ---
Subjective Progress Note Date: 06/29/17 This is a 67-year-old gentleman with history of bladder cancer and polysubstance abuse who was admitted to the hospital following syncope or fall at home. Patient had rhabdomyolysis and renal failure. Patient is troponins were also mildly elevated. Echo Cardigan showed ejection fraction of 35-40%. Patient is complaining of abdominal discomfort. Patient had a computed tomography scan of the abdomen which is being evaluated by Dr. Abrams. Denies any chest pain. Complains of chronic shortness of breath. His platelet count is low at 39,000. He was taken off antiplatelet agent. Oncology recommended that we can resume antiplatelet agents. Once his platelet count is about 50,000. Continue current medical therapy. Prognosis is poor Objective - Vital Signs Vital signs: Vital Signs Temp 97.0 F L 06/29/17 12:00 Pulse 81 06/29/17 12:00 Resp 16 06/29/17 12:00 BP 132/82 06/29/17 12:00 Pulse Ox 92 L 06/29/17 12:00 Intake & Output 06/28/17 06/29/17 06/29/17 18:59 06:59 18:59 Intake Total 480 480 Balance 480 480 Weight 71.3 kg Intake: Oral 480 480 Other: Voiding Method Diaper Diaper Diaper Incontinent Incontinent Incontinent # Voids 2 1 1 # Bowel Movements 1 - Exam GENERAL EXAM: Patient is alert ,in distress and appears cachectic HEENT: Normocephalic. Normal reaction of pupils, equal size, normal range of extraocular motion. No erythema or exudates in the throat. NECK: No masses, no nuchal rigidity. CHEST: No chest wall deformity. LUNGS: Diminished breath sounds HEART: Distant heart sounds ABDOMEN: No hepatosplenomegaly, normal bowel sounds, no guarding or rigidity. SKIN: No rashes CENTRAL NERVOUS SYSTEM: No focal deficits. EXTREMITIES: [No cyanosis, clubbing or edema.] - Labs CBC & Chem 7: 06/29/17 06:02 06/29/17 06:02 Labs: Abnormal Lab Results - Last 24 Hours (Table) 06/29/17 06/29/17 Range/Units 06:02 06:02 RBC 4.09 L (4.30-5.90) m/uL Hgb 12.1 L (13.0-17.5) gm/dL Hct 38.0 L (39.0-53.0) % Plt Count 39 L* (150-450) k/uL Lymphocytes # (Manual) 0.66 L (1.0-4.8) k/uL Sodium 135 L (137-145) mmol/L Carbon Dioxide 21 L (22-30) mmol/L BUN 31 H (9-20) mg/dL Creatinine 2.99 H (0.66-1.25) mg/dL Calcium 8.1 L (8.4-10.2) mg/dL Microbiology - Last 24 Hours (Table) 06/27/17 10:40 Blood Culture - Preliminary Blood No Growth after 48 hours 06/27/17 10:40 Urine Culture - Final Urine,Catheterized Assessment and Plan (1) Altered mental status Current Visit: Yes Status: Acute Code(s): R41.82 - ALTERED MENTAL STATUS, UNSPECIFIED SNOMED Code(s): 070638288 (2) Elevated troponin Current Visit: Yes Status: Acute Code(s): R74.8 - ABNORMAL LEVELS OF OTHER SERUM ENZYMES SNOMED Code(s): 880295900 (3) Renal insufficiency Current Visit: Yes Status: Acute Code(s): N28.9 - DISORDER OF KIDNEY AND URETER, UNSPECIFIED SNOMED Code(s): 216174194 (4) Thrombocytopenia Current Visit: Yes Status: Acute Code(s): D69.6 - THROMBOCYTOPENIA, UNSPECIFIED SNOMED Code(s): 703677100 (5) Bladder cancer Current Visit: No Status: Acute Code(s): C67.9 - MALIGNANT NEOPLASM OF BLADDER, UNSPECIFIED SNOMED Code(s): 572044720 Plan: His echo showed 35-40% ejection fraction. The study is suboptimal. Patient is complaining of abdominal discomfort. Patient had a computed tomography scan. Further recommendation from oncology pending. From cardiac point of view. We'll continue current medical therapy. Follow up as needed. Antiplatelet agent could be initiated once the platelet count improves about 50, 000.
[2017-06-29] MEDS: PIPERACILLIN-TAZOBACTAM 3.375 GM in DEXTROSE/WATER 1 50ML.BAG IVPB SCH ×2 (18:19→23:31)
--- NOTE | 2017-06-29 18:38 | PN ---
PROGRESS NOTE DATE OF SERVICE: 06/29/2017 This 67-year-old gentleman who was admitted with syncope also had change in mental status also. The patient had a chest, abdomen and pelvis CAT scan that was personally reviewed by me which showed the bilateral upper lobe lesions and enlarged pretracheal lymph node lymphadenopathy bilateral hydroureter and hydronephrosis and worsened thickening of the bladder extending into the right lateral aspect of the bladder and bilateral lymph nodes also. No chest pain. No palpitations. No fever. PHYSICAL EXAM: Alert and oriented x2. Pulse 81, blood pressure 130/85, respiratory rate 16, temp 97 degrees, pulse ox 98% on 2 L. HEENT is conjunctivae normal. Oral mucosa moist. Neck is no jugular venous distention. No carotid bruit. No lymph node enlargement. Cardiovascular system: S1, S2 muffled. Respiratory: Breath sounds diminished in the bases. Bilateral scattered rhonchi and crackles. ABDOMEN: Soft, nontender. No mass palpable. Legs no edema. No swelling. NERVOUS SYSTEM: Higher functions as mentioned earlier. Moves all 4 limbs. No focal motor or sensory deficits. Lymphatics: No lymph nodes palpable in the neck, axillae or groin. Skin no ulcer, rash, bleeding. LABS: WBC 9.2, hemoglobin 12.1. Platelets are 39. Sodium 135, creatinine is 2.99. ASSESSMENT: 1. Bilateral upper lobe pneumonias with change in mental status with acute metabolic encephalopathy. 2. Troponin 0.47 indeterminate. 3. Bladder cancer. 4. Bilateral hydroureter and hydronephrosis. 5. Increased creatinine with rhabdomyolysis. 6. Acute on chronic kidney failure stage III. 7. Acute urinary tract infection. 8. Gait dysfunction. 9. History of THC abuse. 10.History of polysubstance abuse. 11.History of coronary artery disease. 12.History of thrombocytopenia. RECOMMENDATIONS AND DISCUSSION: Recommend to continue current medication, continue symptomatic treatment. Otherwise at this time, Dr. Abrams's input appreciated. Cardiology has also seen the patient. Recommend close followup. CT scan noted. Recommend to change in the antibiotics to Zosyn. Continue the rest of medications. Followup labs. DVT prophylaxis. PT/OT evaluation, possible ECF rehab. Prognosis guarded because of multiple complex medical issues. See orders for details. MMODL / IJN: [id number] /
[2017-06-29] MEDS: HEPARIN SODIUM,PORCINE 5,000 UNIT/ML 1 ML VIAL SQ SCH (21:57)
[2017-06-29] MEDS: ATORVASTATIN 20 MG TAB PO SCH (21:58)
[2017-06-29] MEDS: ESCITALOPRAM 20 MG TAB PO SCH (21:58)
[2017-06-30] MEDS: 0.9% NACL WITH KCL 40 MEQ/L 1,000 ML IV SCH ×2 (06:49→14:32)
[2017-06-30] MEDS: PANTOPRAZOLE 40 MG TABLET PO SCH (06:50)
[2017-06-30] MEDS: DILTIAZEM CD 120 MG CAP.ER.24H PO SCH (06:51)
[2017-06-30] MEDS: NITROGLYCERIN OINT 1 INCH/GM PACKET TOPICAL SCH ×3 (06:51→18:22)
[2017-06-30] MEDS: SODIUM CHLORIDE 0.9% 1,000 ML IV SCH ×2 (06:52→22:41)
[2017-06-30 07:32] LABS: Calcium 8.2 mg/dL (8.4-10.2)
[2017-06-30 07:34] LABS: Basophils # (A) 0.1 k/uL (0-0.2); Basophils % (A) 1 %; Eosinophils # (A) 0.1 k/uL (0-0.7); Eosinophils % (A) 1 %; HCT 36.1 % (39.0-53.0); HGB 11.6 gm/dL (13.0-17.5); Lymphocytes # (A) 0.7 k/uL (1.0-4.8); Lymphocytes % (A) 8 %; MCH 29.5 pg (25.0-35.0); MCHC 32.1 g/dL (31.0-37.0); MCV 91.8 fL (80.0-100.0); Mean Platelet Volume 12.3; Monocytes # (A) 0.6 k/uL (0-1.0); Monocytes % (A) 6 %; Neutrophils % (A) 82 %; RBC 3.93 m/uL (4.30-5.90); RDW 13.4 % (11.5-15.5)
[2017-06-30 08:02] LABS: WBC 9.7 k/uL (3.8-10.6)
[2017-06-30] MEDS: METOPROLOL SUCCINATE (ER) 25 MG TAB.ER.24H PO SCH (08:36)
[2017-06-30] MEDS: EZETIMIBE 10 MG TAB PO SCH (08:36)
[2017-06-30] MEDS: HEPARIN SODIUM,PORCINE 5,000 UNIT/ML 1 ML VIAL SQ SCH (08:36)
[2017-06-30] MEDS: ASPIRIN 325 MG TAB PO SCH (08:36)
[2017-06-30] MEDS: PIPERACILLIN-TAZOBACTAM 3.375 GM in DEXTROSE/WATER 1 50ML.BAG IVPB SCH ×2 (10:17→16:33)
[2017-06-30] MEDS: IPRATROPIUM-ALBUTEROL 3 ML NEB INHALATION SCH ×4 (10:33→19:00)
[2017-06-30 11:44] LABS: Large Platelets Present
--- NOTE | 2017-06-30 12:59 | P.NPCON ---
History of Present Illness - Reason for Consult Consult date: 06/30/17 acute renal failure - Chief Complaint Syncopal episodes with acute kidney injury - History of Present Illness Mr. Garcia is a 67-year-old male seen in consultation because of acute kidney injury. He is also known with chronic kidney disease with a creatinine of approximately 1.4 on 04/04/2017 at baseline. It was 1.5 on 06/13/2017. His urine analysis Desyrel 3+ protein large leukocyte Estrace and large amount of RBCs and WBCs. This is a 67-year-old male who presents to the emergency department with altered mental status. According to EMS the son stated the patient was last seen last night and this morning when he came over to see the patient he was on the floor bleeding from the left supraorbital region and was naked lying on the floor. Patient was unable to give any history. According to the son is normally alert and oriented 3 and appears to only be alert and oriented 1 according to EMS. EMS did give the patient Narcan it had no effect. Patient's only complaint currently is back pain which is chronic. No other history is available at this time. His drug screen is positive for opioids and cannabis. He denies taking any nonsteroidals. He does have a history of headache for about 2-3 weeks. No history of seizures. He did have hematuria 2 weeks ago for 1 or 2 days. He was not associated with any pain dysuria frequency. His urine output did decrease. He does have chronic back pains. Workup has shown bilateral hydronephrosis. 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 More recently had a cystoscopy done about 2-3 weeks ago in his urologists office. He also has chronic thrombocytopenia at least for the last 1 year but during this admission it has gone into the 40,000 range. He is also noted to have right leg swelling more than the left and that is something new for him. Past Medical History Past Medical History: Atrial Flutter, Coronary Artery Disease (CAD), Cancer, GERD/Reflux, GI Bleed, Hyperlipidemia, Hypertension, Myocardial Infarction ([place]) , Osteoarthritis (OA) Additional Past Medical History / Comment(s): Recent UTI and completed antibiotics, bladder/lung cancers tx with radiation and chemo, DDD, chronic low back pain with radiculopathy, metabolic encephalopathy with AMS 2ndary to polysubstance abuse-son states pt now adhering to pain medication as ordered, ischemic cardiomyopathy, coma post [place], lower GI bleed, [place]/tinnitis bilaterally , thrombocytopenia. Last Myocardial Infarction Date:: 2010 History of Any Multi-Drug Resistant Organisms: None Reported Past Surgical History: Coronary Bypass/CABG, Heart Catheterization, Orthopedic Surgery Additional Past Surgical History / Comment(s): R knee arthroplasty, R shoulder surgery, colonoscopy, multiple pain procedures, 2010 CABG 4 vessel, 2010 PCI with 2 stents. Past Anesthesia/Blood Transfusion Reactions: No Reported Reaction Smoking Status: Former smoker - Past Family History Son(s) Additional Family Medical History / Comment(s): Son at age 32 from brain aneurysm Mother Family Medical History: Congestive Heart Failure (CHF) Additional Family Medical History / Comment(s): HEART SWELLED Medications and Allergies Home Medications Medication Instructions Recorded Confirmed Type Atorvastatin [Lipitor] 20 mg PO HS 08/20/14 06/27/17 History Clopidogrel [Plavix] 75 mg PO DAILY 08/20/14 06/27/17 History Escitalopram [Lexapro] 20 mg PO DAILY 08/20/14 06/27/17 History Ezetimibe [Zetia] 10 mg PO DAILY 08/20/14 06/27/17 History Metoprolol Succinate [Toprol XL] 25 mg PO DAILY 08/20/14 06/27/17 History Nitroglycerin Sl Tabs [Nitrostat] 0.4 mg PO Q5M PRN 08/20/14 06/27/17 History Albuterol Sulfate [Proair Hfa] 2 puff INHALATION RT-QID PRN 10/27/15 06/27/17 History Diltiazem HCl [Diltiazem 24Hr ER] 120 mg PO AC-BRKFST 10/27/15 06/27/17 History Omeprazole 20 mg PO DAILY 10/27/15 06/27/17 History Tiotropium 18 Mcg/Puff [Spiriva] 1 cap INHALATION RT-DAILY 10/27/15 06/27/17 History HYDROcodone/APAP 7.5-325MG [[place] 1 tab PO Q6HR PRN 06/12/17 06/27/17 History 7.5-325] traZODone HCL 50 - 100 mg PO HS PRN 06/12/17 06/27/17 History ALPRAZolam [ALPRAZolam] 1 mg PO Q8H PRN 06/27/17 06/27/17 History Baclofen [Lioresal] 20 mg PO Q6H PRN 06/27/17 06/27/17 History traMADol HCL [Ultram] 50 mg PO Q4HR PRN 06/27/17 06/27/17 History Allergies Allergy/AdvReac Type Severity Reaction Status Date / Time propoxyphene HCl Allergy Dyspnea Verified 06/27/17 11:46 [From Darvon] propoxyphene napsylate Allergy Unknown Verified 06/27/17 11:46 [From Darvocet-N] aspirin AdvReac Unknown Verified 06/27/17 11:46 Physical Exam Vitals: Vital Signs Temp Pulse Pulse Resp BP BP Pulse Ox 06/30/17 12:00 97.2 F L 83 16 144/82 92 L 06/30/17 08:00 97.4 F L 91 18 130/76 92 L 06/30/17 04:00 96.8 F L 89 18 142/84 94 L 06/30/17 00:00 97.6 F 91 20 127/67 95 06/29/17 21:21 79 06/29/17 21:12 80 98 06/29/17 20:00 98.0 F 86 20 143/81 97 06/29/17 16:44 80 06/29/17 16:31 88 06/29/17 16:00 84 16 129/80 92 L Intake and Output 06/29/17 06/30/17 06/30/17 22:59 06:59 14:59 Intake Total 300 Balance 300 Intake: Oral 300 Other: Voiding Method Diaper Diaper Incontinent Incontinent # Voids 1 3 1 # Bowel Movements 1 1 Weight 71.3 kg 72.1 kg On examination he is somewhat emaciated. HEENT exam no JVP lymphadenopathy thyromegaly neck is supple no facial asymmetry Lungs are clear to auscultation percussion good air entry bilaterally. Heart sounds are unremarkable for any murmur rub gallop Abdomen is soft nontender no organomegaly status masses He does complain of a right inguinal area pain and says that he has a small hernia but I cannot see it. Extremity examination was moderate edema right but none on the left. Neurologically awake alert oriented. No focal motor deficit. Pupils are equal bilaterally. Results - Lab Results Most recent lab results Calcium 8.2 mg/dL (8.4-10.2) L 06/30/17 06:15 Magnesium 2.3 mg/dL (1.6-2.3) 06/27/17 10:40 06/30/17 06:15 06/30/17 06:15 Assessment and Plan Assessment: Impression. 1. Acute kidney injury secondary to bilateral hydroureter and hydronephrosis based on computed tomography scan finding. Worsening creatinine, 2.4-3.54 this morning. 2. Mild hyponatremia secondary acute kidney injury. 3. Mild non-gap acidosis bicarb of 19. Acute kidney injury. 4. Rule out right sided DVT as there is significant edema off right side. 5. History of bladder cancer with chemotherapy and in remission. Computed tomography scan shows possible worsening of that occurring of the bladder wall. 6. Bilateral upper lobe pneumonia based on computed tomography scan. 7. Diverticulosis. 8. Enlarging Aortic and paracaval and bilateral eyelid lymph nodes. 9. Severe thrombocytopenia. Has been noted for the last 1 year but worse now in the 40,000 range possibility of HUS TTP considered but thought to be unlikely. Recommendation. 1. Check postvoid residual to ensure there is no outlet obstruction that is cause of the bilateral hydroureter and hydronephrosis. 2. Possible bladder wall invasion of the ureteral orifices causing bilateral hydrocele ureterohydronephrosis. 3. Check Doppler flow of the leg veins to rule out DVT in the right. 4. Continue IV fluids normal saline at 75 mL an hour. 5. Start sodium bicarb 650 4 times a day 6. Check LDH and peripheral smear for schistocytes to rule out extra rest TTP.
--- NOTE | 2017-06-30 13:50 | US ---
EXAMINATION TYPE: US venous doppler duplex LE RT DATE OF EXAM: 06/30/2017 1:37 PM COMPARISON: NONE CLINICAL HISTORY: possible DVT. right leg swelling SIDE PERFORMED: Right TECHNIQUE: The lower extremity deep venous system is examined utilizing real time linear array sonog rupesh with graded compression, doppler sonography and color-flow sonography. VESSELS IMAGED: External Iliac Vein (EIV) Common Femoral Vein Deep Femoral Vein Greater Saphenous Vein * Femoral Vein Popliteal Vein Proximal Calf Veins (* superficial vessels) Right Leg: Positive for DVT, no flow or compression detected in the deep femoral vein. No popliteal fossa lesion was identified. IMPRESSION: THIS EXAMINATION IS POSITIVE FOR DVT IN THE DEEP FEMORAL VEIN OF THE RIGHT LEG.
[2017-06-30] MEDS ORDERED: HEPARIN SODIUM,PORCINE 5,000 UNIT/ML 1 ML VIAL IV ONE (14:03)
[2017-06-30] MEDS ORDERED: HEPARIN SODIUM,PORCINE 5,000 UNIT/ML 1 ML VIAL IV PRN (14:03)
[2017-06-30] MEDS ORDERED: HEPARIN SOD,PORK IN 0.45% NACL 25,000 UNIT in 0.45% NACL 1 500ML.BAG IV SCH (14:15)
--- NOTE | 2017-06-30 14:21 | XR ---
EXAMINATION TYPE: XR foot complete RT , 3 VIEWS DATE OF EXAM ORDERED: 06/30/2017 HISTORY: swelling/bruising r/t fall. COMPARISON: None. FINDINGS: No fracture, dislocation or other acute osseous lesion is seen. IMPRESSION: NO ACUTE OSSEOUS LESION.
--- NOTE | 2017-06-30 15:44 | XR ---
EXAMINATION TYPE: XR chest 1V portable DATE OF EXAM: 06/30/2017 COMPARISON: 06/27/2017, 08/11/2014 INDICATION: History of bladder cancer with metastases TECHNIQUE: Single frontal view of the chest is obtained. FINDINGS: The heart size is normal. The pulmonary vasculature is normal. There is mild developing infiltrate right upper lobe. Correlate for atelectasis and pulmonary edema. Minimal blunting of the left costophrenic angle is present. This may be chronic present previously IMPRESSION: 1. Developing right upper lobe infiltrate is nonspecific. Correlate for pneumonia and atypical pulmon gallo edema. 2. Chronic blunting the left costophrenic angle
--- NOTE | 2017-06-30 16:00 | PN ---
PROGRESS NOTE DATE OF SERVICE: 06/30/2017 INTERVAL HISTORY: This 61-year-old gentleman who was admitted with bilateral upper lobe pneumonias with change in mental status, acute metabolic encephalopathy is being closely monitored. Patient also has history of bladder cancer, also. No chest pain. No palpitations. No fever. Ultrasound of the leg showed positive DVT in the right leg. 2D echo showed ejection fraction 30-40%. Hematology Oncology recommended evaluation by Urology for evaluation of the bladder cancer. PAST MEDICAL HISTORY: Reviewed. REVIEW OF SYSTEMS: CARDIOVASCULAR: No angina. RESPIRATORY: As mentioned earlier. GI: As mentioned earlier. : As mentioned earlier. NERVOUS SYSTEM: No numbness or weakness. CURRENT MEDICATIONS: Reviewed and include: 1. [place] 7.5 q.6h p.r.n. 2. DuoNeb q.i.d. and p.r.n. 3. Xanax 0.5 q.i.d. 4. Aspirin 325 mg daily. 5. Lipitor 20 mg daily. 6. Lioresal 20 mg every 6 p.r.n. 7. Cardizem 120 mg. 8. Lexapro 20 mg. 10.Heparin 5000 subcu p.r.n. 11.Dilaudid 2 mg p.o. q.4h p.r.n. 12.Toprol-XL 25 mg p.o. 13.Nitrostat 0.4 sublingual. 14.Protonix 40 mg. 15.Zosyn 3.5 q.8h. 16.Ultram 50 mg q.4h. 17.Desyrel 50 mg q.h.s. p.r.n. PHYSICAL EXAM: Patient is alert, oriented x3. Pulse is 83, blood pressure 145/82, respirations 16, temperature 97.2, pulse ox 98% on room air. HEENT: Conjunctivae normal. NECK: No jugular venous distention. CARDIOVASCULAR: S1, S2 muffled. RESPIRATORY: Breath sounds diminished in the bases. A few scattered rhonchi and crackles. Expiratory wheezing also present. ABDOMEN: Soft, nontender. No mass palpable. LEGS: No edema. NERVOUS SYSTEM: Diffusely weak. LAB STUDIES: WBC 9.1, hemoglobin 11.6, platelets of 46, creatinine 3.54, which is worsening. ASSESSMENT: 1. Bilateral upper lobe pneumonia with change in mental status with acute metabolic encephalopathy present on admission. 2. Troponin 0.47 indeterminate. 3. Bladder cancer. 4. Acute on chronic kidney failure multifactorial. 5. Chronic kidney stage III at baseline. 6. Bilateral hydronephrosis. 7. Increased creatinine with rhabdomyolysis. 8. Acute urinary tract infection. 9. Gait dysfunction. 10.History of THC abuse. 11.History of polysubstance abuse. 12.History of coronary artery disease. 13.History of thrombocytopenia. 14.Acute deep vein thrombosis of the right leg. RECOMMENDATION AND DISCUSSION: In this 67-year-old gentleman who presents with multiple complex medical issues , will monitor the patient closely. Continue the current management and symptomatic treatment. Otherwise continue with current medications. On admission IV heparin was initiated as per Hematology Oncology recommendations. Otherwise continue with broad- spectrum IV antibiotics. PT, OT evaluation and evaluate for possible ECF rehab. Prognosis guarded because of multiple complex medical issues. Further recommendations to follow. See orders for details. MMODL / IJN: [id number] / MTDD
--- NOTE | 2017-06-30 17:16 | P.GSCN ---
History of Present Illness Consult date: 06/30/17 Reason for Consult: Bladder cancer, hydronephrosis Requesting physician: Pramod Abrams History of present illness: The patient is a 67-year-old male who presented in early 2014 with gross painless hematuria. Urine cytology was positive, and a CT urogram suggested the presence of a 2.5 cm bladder mass. 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 He has been treated with chemoradiation but now presents back with hematuria. Cystoscopy in February 2017 revealed a sessile tumor on the anterior bladder wall, and I suggested he undergo transurethral resection. However, he experienced angina and he was thus advised that he would require cardiac clearance. He has not been seen since that time. He is now admitted with hematuria. Computed tomography scan imaging has shown cancer progression, and he has also been found to have a DVT of the right lower extremity. Review of Systems - Constitutional Reports weight loss - Cardiovascular Reports leg edema - Genitourinary Reports hematuria Past Medical History Past Medical History: Atrial Flutter, Coronary Artery Disease (CAD), Cancer, GERD/Reflux, GI Bleed, Hyperlipidemia, Hypertension, Myocardial Infarction ([place]) , Osteoarthritis (OA) Additional Past Medical History / Comment(s): Recent UTI and completed antibiotics, bladder/lung cancers tx with radiation and chemo, DDD, chronic low back pain with radiculopathy, metabolic encephalopathy with AMS 2ndary to polysubstance abuse-son states pt now adhering to pain medication as ordered, ischemic cardiomyopathy, coma post [place], lower GI bleed, [place]/tinnitis bilaterally , thrombocytopenia. Last Myocardial Infarction Date:: 2010 History of Any Multi-Drug Resistant Organisms: None Reported Past Surgical History: Coronary Bypass/CABG, Heart Catheterization, Orthopedic Surgery Additional Past Surgical History / Comment(s): R knee arthroplasty, R shoulder surgery, colonoscopy, multiple pain procedures, 2010 CABG 4 vessel, 2010 PCI with 2 stents. Past Anesthesia/Blood Transfusion Reactions: No Reported Reaction Smoking Status: Former smoker - Past Family History Son(s) Additional Family Medical History / Comment(s): Son at age 32 from brain aneurysm Mother Family Medical History: Congestive Heart Failure (CHF) Additional Family Medical History / Comment(s): HEART SWELLED Medications and Allergies Home Medications Medication Instructions Recorded Confirmed Type Atorvastatin [Lipitor] 20 mg PO HS 08/20/14 06/27/17 History Clopidogrel [Plavix] 75 mg PO DAILY 08/20/14 06/27/17 History Escitalopram [Lexapro] 20 mg PO DAILY 08/20/14 06/27/17 History Ezetimibe [Zetia] 10 mg PO DAILY 08/20/14 06/27/17 History Metoprolol Succinate [Toprol XL] 25 mg PO DAILY 08/20/14 06/27/17 History Nitroglycerin Sl Tabs [Nitrostat] 0.4 mg PO Q5M PRN 08/20/14 06/27/17 History Albuterol Sulfate [Proair Hfa] 2 puff INHALATION RT-QID PRN 10/27/15 06/27/17 History Diltiazem HCl [Diltiazem 24Hr ER] 120 mg PO AC-BRKFST 10/27/15 06/27/17 History Omeprazole 20 mg PO DAILY 10/27/15 06/27/17 History Tiotropium 18 Mcg/Puff [Spiriva] 1 cap INHALATION RT-DAILY 10/27/15 06/27/17 History HYDROcodone/APAP 7.5-325MG [[place] 1 tab PO Q6HR PRN 06/12/17 06/27/17 History 7.5-325] traZODone HCL 50 - 100 mg PO HS PRN 06/12/17 06/27/17 History ALPRAZolam [ALPRAZolam] 1 mg PO Q8H PRN 06/27/17 06/27/17 History Baclofen [Lioresal] 20 mg PO Q6H PRN 06/27/17 06/27/17 History traMADol HCL [Ultram] 50 mg PO Q4HR PRN 06/27/17 06/27/17 History Allergies Allergy/AdvReac Type Severity Reaction Status Date / Time propoxyphene HCl Allergy Dyspnea Verified 06/27/17 11:46 [From Darvon] propoxyphene napsylate Allergy Unknown Verified 06/27/17 11:46 [From Darvocet-N] aspirin AdvReac Unknown Verified 06/27/17 11:46 Surgical - Exam Vital Signs Temp Pulse Resp BP Pulse Ox 97.2 F L 98 20 191/102 96 06/27/17 10:16 06/27/17 10:16 06/27/17 10:16 06/27/17 10:16 06/27/17 10:16 - General well developed, well nourished, no distress - Respiratory normal respiratory effort - Abdomen Abdomen: soft, tender (Lower abdominal tenderness is noted), no masses, no guarding, no rebound, no distended - Genitourinary normal penis with no external lesions, testicles present - Psychiatric oriented to time, oriented to person, oriented to place, speech is normal, memory intact Results - Labs 06/30/17 06:15 06/30/17 06:15 Abnormal Lab Results - Last 24 Hours (Table) 06/28/17 06/29/17 06/29/17 Range/Units 06:14 06:02 06:02 RBC 4.09 L (4.30-5.90) m/uL Hgb 12.1 L (13.0-17.5) gm/dL Hct 38.0 L (39.0-53.0) % Plt Count 39 L* (150-450) k/uL Lymphocytes # (Manual) 0.58 L (1.0-4.8) k/uL Metamyelocytes # (Man) 0.22 H (0) k/uL Myelocytes # (Manual) 0.15 H (0) k/uL Sodium 135 L (137-145) mmol/L Carbon Dioxide 21 L (22-30) mmol/L BUN 31 H (9-20) mg/dL Creatinine 2.99 H (0.66-1.25) mg/dL Calcium 8.1 L (8.4-10.2) mg/dL Microbiology - Last 24 Hours (Table) 06/27/17 10:40 Urine Culture - Final Urine,Catheterized 06/27/17 10:40 Blood Culture - Preliminary Blood No Growth after 24 hours Diabetes panel 06/29/17 Range/Units 06:02 Sodium 135 L (137-145) mmol/L Potassium 5.0 (3.5-5.1) mmol/L Chloride 102 (98-107) mmol/L Carbon Dioxide 21 L (22-30) mmol/L BUN 31 H (9-20) mg/dL Creatinine 2.99 H (0.66-1.25) mg/dL Glucose 92 (74-99) mg/dL Calcium 8.1 L (8.4-10.2) mg/dL Calcium panel 06/29/17 Range/Units 06:02 Calcium 8.1 L (8.4-10.2) mg/dL Pituitary panel 06/29/17 Range/Units 06:02 Sodium 135 L (137-145) mmol/L Potassium 5.0 (3.5-5.1) mmol/L Chlor[place] 102 (98-107) mmol/L Carbon Dioxide 21 L (22-30) mmol/L BUN 31 H (9-20) mg/dL Creatinine 2.99 H (0.66-1.25) mg/dL Glucose 92 (74-99) mg/dL Calcium 8.1 L (8.4-10.2) mg/dL Adrenal panel 06/29/17 Range/Units 06:02 Sodium 135 L (137-145) mmol/L Potassium 5.0 (3.5-5.1) mmol/L Chloride 102 (98-107) mmol/L Carbon Dioxide 21 L (22-30) mmol/L BUN 31 H (9-20) mg/dL Creatinine 2.99 H (0.66-1.25) mg/dL Glucose 92 (74-99) mg/dL Calcium 8.1 L (8.4-10.2) mg/dL - Imaging CT scan - abdomen: report reviewed, image reviewed Assessment and Plan (1) Hydronephrosis Current Visit: Yes Status: Acute Priority: High Code(s): N13.30 - UNSPECIFIED HYDRONEPHROSIS SNOMED Code(s): 06022887 Plan: The patient has progressive, metastatic urothelial carcinoma of the bladder despite prior treatment with chemoradiation. He has developed hydronephrosis with renal failure. When cystoscopy was last performed in February 2017, the ureteral orifices were visible. In view of this, I intend to perform cystoscopy with attempted placement of bilateral ureteral stents. Bladder tumor resection will be considered, but only if it is felt to offer him any symptomatic improvement in terms of hematuria or voiding dysfunction. Patient understands that stent pacement may not be possible, and that he may require placement of nephrostomy tubes. Time with Patient: Greater than 30
[2017-06-30] MEDS: ATORVASTATIN 20 MG TAB PO SCH (22:40)
[2017-06-30] MEDS: ESCITALOPRAM 20 MG TAB PO SCH (22:41)
--- NOTE | 2017-06-30 23:25 | P.PN ---
Subjective Progress Note Date: 06/30/17 The pt continues to feel weak. Bleeding in the urine has cleared. He c/o swelling and pain in his rt foot. Doppler today revealed a femoral DVT Objective - Vital Signs Vital signs: Vital Signs Temp 97.1 F L 06/30/17 20:13 Pulse 91 06/30/17 20:13 Resp 18 06/30/17 20:13 BP 145/74 06/30/17 20:13 Pulse Ox 94 L 06/30/17 20:13 Intake & Output 06/30/17 06/30/17 07/01/17 06:59 18:59 06:59 Intake Total 1020 199 Output Total 368 Balance 652 199 Weight 72.1 kg 72.1 kg Intake: Oral 1020 Blood Product 199 Platelet Pheresis Acda3 199 Unit [id number] Output: Post Void Residual 368 Other: Voiding Method Diaper Diaper Incontinent Incontinent # Voids 3 1 1 # Bowel Movements 1 1 1 - Constitutional General appearance: Present: no acute distress - EENT EENT Comment(s): left hafsa orbital bruising Eyes: Present: PERRLA ENT: Present: hearing grossly normal, normal oropharynx - Respiratory Respiratory: bilateral: CTA - Cardiovascular Rhythm: regular Heart sounds: normal: S1, S2 - Gastrointestinal General gastrointestinal: Present: normal bowel sounds, soft Localized gastrointestinal: guarding: RLQ, LLQ - Integumentary Integumentary: Present: normal - Neurologic Neurologic: Present: CNII-XII intact - Musculoskeletal Musculoskeletal Comment(s): rt foot swelling/tenderness Musculoskeletal: Present: generalized weakness - Labs CBC & Chem 7: 06/30/17 06:15 06/30/17 06:15 Labs: Abnormal Lab Results - Last 24 Hours (Table) 06/30/17 06/30/17 06/30/17 Range/Units 06:15 06:15 06:15 RBC 3.93 L (4.30-5.90) m/uL Hgb 11.6 L (13.0-17.5) gm/dL Hct 36.1 L (39.0-53.0) % Plt Count 46 L* (150-450) k/uL Neutrophils # 8.0 H (1.3-7.7) k/uL Lymphocytes # 0.7 L (1.0-4.8) k/uL APTT (22.0-30.0) sec Sodium 134 L (137-145) mmol/L Carbon Dioxide 19 L (22-30) mmol/L BUN 36 H (9-20) mg/dL Creatinine 3.54 H (0.66-1.25) mg/dL Calcium 8.2 L (8.4-10.2) mg/dL Lactate Dehydrogenase 31682 H (313-618) U/L 06/30/17 Range/Units 21:54 RBC (4.30-5.90) m/uL Hgb (13.0-17.5) gm/dL Hct (39.0-53.0) % Plt Count (150-450) k/uL Neutrophils # (1.3-7.7) k/uL Lymphocytes # (1.0-4.8) k/uL APTT 35.5 H (22.0-30.0) sec Sodium (137-145) mmol/L Carbon Dioxide (22-30) mmol/L BUN (9-20) mg/dL Creatinine (0.66-1.25) mg/dL Calcium (8.4-10.2) mg/dL Lactate Dehydrogenase (313-618) U/L Microbiology - Last 24 Hours (Table) 06/27/17 10:40 Blood Culture - Preliminary Blood No Growth after 72 hours Assessment and Plan (1) Altered mental status Narrative/Plan: this has resolved, with the patient essentially back to baseline. He is now oriented 3, and recall appears to be fairly normal Current Visit: Yes Status: Acute Code(s): R41.82 - ALTERED MENTAL STATUS, UNSPECIFIED SNOMED Code(s): 197761269 (2) Bladder cancer Narrative/Plan: the patient had repeat CT scan of the chest abdomen and pelvis done. This appears to show progression in retroperitoneal and iliac nodes, bladder wall, and pretracheal lymph nodes. The patient has not undergone a bilateral hydronephrosis, as well as swelling in the lower anterior pelvis. The results and implications were discussed with him. He was advised that this represents stage IV metastatic disease which is not curable. He could potentially be a candidate for immunotherapy, or second line chemotherapy. At this time is not sure if LAUREEN is interested in treatment. However he is willing to discuss options with Dr. Corona in the outpatient setting postdischarge. follow-up will be set up for him. Current Visit: No Status: Acute Code(s): C67.9 - MALIGNANT NEOPLASM OF BLADDER, UNSPECIFIED SNOMED Code(s): 910617502 (3) Hematuria Narrative/Plan: this appears to have resolved. Case was discussed with urology. The patient has now also developed bilateral hydronephrosis. The plan for cystoscopy with stent placement. However prior procedure notes and imaging will be reviewed by urology. If prior procedure had shown the tumor overgrowing the trigone to where the ureteral orifices could not be found, then likely nephrostomy will be recommended. Current Visit: Yes Status: Acute Code(s): R31.9 - HEMATURIA, UNSPECIFIED SNOMED Code(s): 69273893 (4) Thrombocytopenia Narrative/Plan: this is felt to be mostly consumptive in nature, due to possible infection and some bleeding. Platelet counts are starting to improve. As they are still slightly below 50,000, he will receive a unit of platelets for the recommended heparin drip. One specific counts cross 50,000, then it would be considered safe to continue anticoagulation without further support Current Visit: Yes Status: Acute Code(s): D69.6 - THROMBOCYTOPENIA, UNSPECIFIED SNOMED Code(s): 967268300 (5) Deep vein thrombosis Narrative/Plan: the patient has a new diagnosis of left lower extremity DVT. This is above knee. The patient will be started on IV heparin. He will receive platelet transfusion, 4 count slightly below 50,000. However platelet counts seem to be showing an upward trend and hopefully will recover spontaneously to be > 50,000 where additional support will not be needed . Assuming that he does not bleed, and platelet counts are in a safe range, he will require lifelong anticoagulation, as his DVT would be felt to be related to his metastatic malignancy Current Visit: Yes Status: Acute Code(s): I82.409 - ACUTE EMBOLISM AND THOMBOS UNSP DEEP VN UNSP LOWER EXTREMITY SNOMED Code(s): 193826909
[2017-06-30 23:58] LABS: Basophils # (A) 0.1 k/uL (0-0.2); Basophils % (A) 1 %; Eosinophils # (A) 0.1 k/uL (0-0.7); Eosinophils % (A) 1 %; HCT 32.9 % (39.0-53.0); HGB 10.5 gm/dL (13.0-17.5); Lymphocytes # (A) 0.9 k/uL (1.0-4.8); Lymphocytes % (A) 7 %; MCH 29.9 pg (25.0-35.0); MCHC 31.9 g/dL (31.0-37.0); MCV 93.9 fL (80.0-100.0); Mean Platelet Volume 10.7; Monocytes # (A) 0.7 k/uL (0-1.0); Monocytes % (A) 6 %; Neutrophils # (A) 10.2 k/uL (1.3-7.7); Neutrophils % (A) 82 %; Platelet Count 61 k/uL (150-450); RDW 13.5 % (11.5-15.5); WBC 12.4 k/uL (3.8-10.6)
[2017-07-01] MEDS: NITROGLYCERIN OINT 1 INCH/GM PACKET TOPICAL SCH ×5 (00:15→23:28)
[2017-07-01] MEDS: PIPERACILLIN-TAZOBACTAM 3.375 GM in DEXTROSE/WATER 1 50ML.BAG IVPB SCH ×3 (00:15→21:29)
[2017-07-01] MEDS: HYDROcodone/APAP 7.5-325MG 1 EACH TAB PO PRN ×4 (02:26→23:29)
[2017-07-01 04:18] LABS: Basophils # (A) 0.1 k/uL (0-0.2); Basophils % (A) 1 %; Eosinophils # (A) 0.1 k/uL (0-0.7); Eosinophils % (A) 1 %; HCT 30.2 % (39.0-53.0); HGB 9.4 gm/dL (13.0-17.5); Lymphocytes # (A) 0.9 k/uL (1.0-4.8); Lymphocytes % (A) 8 %; MCH 29.1 pg (25.0-35.0); MCHC 31.2 g/dL (31.0-37.0); MCV 93.1 fL (80.0-100.0); Mean Platelet Volume 10.9; Monocytes # (A) 0.6 k/uL (0-1.0); Monocytes % (A) 6 %; Neutrophils # (A) 9.4 k/uL (1.3-7.7); Neutrophils % (A) 81 %; RBC 3.24 m/uL (4.30-5.90); RDW 13.5 % (11.5-15.5); WBC 11.6 k/uL (3.8-10.6)
[2017-07-01 04:19] LABS: Platelet Count 57 k/uL (150-450)
[2017-07-01 06:32] LABS: HGB 9.1 gm/dL (13.0-17.5); Hypochromasia Slight; MCH 29.2 pg (25.0-35.0); MCHC 30.4 g/dL (31.0-37.0); MCV 96.1 fL (80.0-100.0); RBC 3.12 m/uL (4.30-5.90); RDW 13.5 % (11.5-15.5); WBC 11.4 k/uL (3.8-10.6)
[2017-07-01 06:39] LABS: Platelet Count 59 k/uL (150-450)
[2017-07-01 06:57] LABS: Calcium 8.2 mg/dL (8.4-10.2); Potassium 5.5 mmol/L (3.5-5.1)
[2017-07-01] MEDS: IPRATROPIUM-ALBUTEROL 3 ML NEB INHALATION SCH ×4 (07:46→20:08)
[2017-07-01 08:23] LABS: Eosinophils # (M) 0.11 k/uL (0-0.7); Metamyelocytes # (M) 0.23 k/uL (0); Metamyelocytes % 2 %; Nucleated Red Blood Cells 0 /100 WBC (0-0)
[2017-07-01 08:24] LABS: Band Neutrophils % 9 %; Lymphocytes # (M) 1.25 k/uL (1.0-4.8); Monocytes # (M) 0.91 k/uL (0-1.0); Myelocytes # (M) 0.23 k/uL (0); Myelocytes % 2 %; Neutrophils % (M) 69 %; Poikilocytosis (M) Present; Total Cells Counted 200
[2017-07-01] MEDS: 0.9% NACL WITH KCL 40 MEQ/L 1,000 ML IV SCH (10:20)
[2017-07-01] MEDS: DILTIAZEM CD 120 MG CAP.ER.24H PO SCH (10:21)
[2017-07-01] MEDS: PANTOPRAZOLE 40 MG TABLET PO SCH (10:21)
[2017-07-01] MEDS: ASPIRIN 325 MG TAB PO SCH (10:21)
[2017-07-01] MEDS: EZETIMIBE 10 MG TAB PO SCH (10:22)
[2017-07-01] MEDS: METOPROLOL SUCCINATE (ER) 25 MG TAB.ER.24H PO SCH (10:22)
[2017-07-01] MEDS: traMADol 50 MG TAB PO PRN ×3 (10:22→21:28)
[2017-07-01] MEDS: SODIUM CHLORIDE 0.9% 1,000 ML IV SCH ×2 (11:08→21:31)
[2017-07-01] MEDS ORDERED: SODIUM POLYSTYRENE SULFONATE 15 GM/60 ML BOTTLE PO STA (13:09)
[2017-07-01 14:45] LABS: Platelet Count 46 k/uL (150-450)
--- NOTE | 2017-07-01 15:13 | PN ---
PROGRESS NOTE Patient is seen for followup for acute kidney injury. Patient has underlying bladder cancer with evidence of hydronephrosis noted bilaterally on CAT scan done on 06/29/2017. Currently, patient is maintained on IV fluids at 75 mL an hour. His creatinine was at 2.1 mg/dL on initial admission. It has worsened to 3.8 now. Patient states he has been voiding, one postvoidal residual volume was charted at 368. Patient does follow up with Dr. Acevedo as outpatient and I discussed consulting Urology. At this time, patient's family is concerned regarding financial burden. PHYSICAL EXAMINATION: Blood pressure is 117/69, heart rate 84 per minute. patient is afebrile. Examination of the heart, S1, S2. Examination of the lungs, bilateral breath sounds are heard. Abdomen is soft, distended, nontender. Examination of the lower extremities shows edema in the right lower extremity. No edema noted in the left lower extremity. 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 Patient moving all 4 extremities. LABS: Show sodium 135, potassium 5.5, chloride 106, CO2 of 17, BUN 12, serum creatinine 3.8, BUN 42. Hemoglobin 9.1 g/dL. ASSESSMENT: 1. Acute kidney injury, obstructive in nature. Recommend Urology consult. Continue with IV fluids. 2. Hyperkalemia associated with acute kidney injury and obstructive uropathy. 3. Bladder cancer with evidence of worsening noted on the CAT scan. 4. Right femoral deep venous thrombosis, maintained on heparin. PLAN: Continue IV fluids. Recommend Urology consult. Continue to avoid nephrotoxic agents. Currently, patient is not on any nephrotoxic agents. Will repeat another postvoidal residual. ADDENDUM Pt has been seen by Urology and is scheduld for cystoscopy and stent placement in am. MMODL / IJN: [id number] / MTDD
[2017-07-01 17:40] LABS: HCT 25.6 % (39.0-53.0); HGB 7.9 gm/dL (13.0-17.5); Hypochromasia Slight; MCH 29.5 pg (25.0-35.0); MCV 95.1 fL (80.0-100.0); Mean Platelet Volume 12.2; RBC 2.69 m/uL (4.30-5.90); RDW 13.8 % (11.5-15.5); WBC 11.9 k/uL (3.8-10.6)
[2017-07-01 17:46] LABS: Platelet Count 56 k/uL (150-450)
[2017-07-01] MEDS: BACLOFEN 10 MG TAB PO PRN (18:32)
--- NOTE | 2017-07-01 18:48 | P.PN ---
Subjective Progress Note Date: 07/01/17 Progress note being dictated for Dr. Heard. Interval history: This is a 67-year-old gentleman admitted with syncope, fall, acute metabolic encephalopathy, elevated troponins, rhabdomyolysis, renal failure, UTI and multiple other medical issues. Maintained on gentle IV fluid hydration, empiric antibiotics. Mildly worsening renal function. CK improving. Sensorium significantly improved. Evaluated by cardiology with recommendations noted. Evaluated by physical therapy with subacute rehab recommended at discharge. Troponins 0.119, 0.472, 0.567. Afebrile, normal WBC. Urine culture negative. Pulmonary blood cultures negative. Echo suboptimal, reporting moderately impaired LV function, EF 35-40%. 07/01/17 maintained on IV fluid hydration at 75 MLS an hour. Renal function continues to worsen, 3.88. Hematuria, currently hemoglobin 9.1.Repeat Hgb pending. Evaluated by urology.Cystoscopy with placement of bilateral ureteral stents scheduled for tomorrow; bladder tumor resection also being considered. Hyperkalemic, K5.5. No chest pain, no palpitations. Afebrile. Objective - Vital Signs Vital signs: Vital Signs Temp 97.4 F L 07/01/17 04:00 Pulse 76 07/01/17 07:59 Resp 18 07/01/17 04:00 BP 133/81 07/01/17 04:00 Pulse Ox 94 L 07/01/17 04:00 Intake & Output 06/30/17 07/01/17 07/01/17 18:59 06:59 18:59 Intake Total 1020 199 Output Total 368 Balance 652 199 Weight 72.1 kg 72 kg Intake: Oral 1020 Blood Product 199 Platelet Pheresis Acda3 199 Unit [id number] Output: Post Void Residual 368 Other: Voiding Method Diaper Incontinent # Voids 1 1 # Bowel Movements 1 1 - Exam PHYSICAL EXAM: VITAL SIGNS: As above GENERAL: Sitting up in bed, tired appearing, no acute distress HEENT: Conjunctivae normal. eyes normal. Left orbital Bruising , oral mucosa moist NECK: No JVD. No thyroid enlargement. No LNs CARDIOVASCULAR: S1, S2 muffled. No murmur RESPIRATION: Breath sounds diminished in the bases. Scattered rhonchi and crackles. expiratory wheezes ABDOMEN: Soft, nontender . No guarding. no masses palpable.Bowel sounds heard. LEGS: No edema. no swelling PSYCHIATRY: Alert and oriented -2, mood and affect normal. NERVOUS SYSTEM: Cranial N 2-12 grossly normal. Moves all 4 limbs. Diffuse weakness No focal deficits. Skin: no ulcer no rash Joints: No active swelling. No inflammation. Lymphatic system. No LN neck axilla or groin. - Labs CBC & Chem 7: 07/01/17 17:22 07/01/17 06:03 Labs: Abnormal Lab Results - Last 24 Hours (Table) 06/30/17 06/30/17 06/30/17 Range/Units 06:15 06:15 21:54 WBC (3.8-10.6) k/uL RBC 3.93 L (4.30-5.90) m/uL Hgb 11.6 L (13.0-17.5) gm/dL Hct 36.1 L (39.0-53.0) % MCHC (31.0-37.0) g/dL Plt Count 46 L* (150-450) k/uL Neutrophils # 8.0 H (1.3-7.7) k/uL Neutrophils # (Manual) (1.3-7.7) k/uL Lymphocytes # 0.7 L (1.0-4.8) k/uL Metamyelocytes # (Man) (0) k/uL Myelocytes # (Manual) (0) k/uL APTT 35.5 H (22.0-30.0) sec Fibrinogen (200-500) mg/dL Sodium (137-145) mmol/L Potassium (3.5-5.1) mmol/L Carbon Dioxide (22-30) mmol/L BUN (9-20) mg/dL Creatinine (0.66-1.25) mg/dL Glucose (74-99) mg/dL Calcium (8.4-10.2) mg/dL Lactate Dehydrogenase 05107 H (313-618) U/L 06/30/17 06/30/17 07/01/17 Range/Units 23:39 23:39 03:37 WBC 12.4 H 11.6 H (3.8-10.6) k/uL RBC 3.50 L 3.24 L (4.30-5.90) m/uL Hgb 10.5 L 9.4 L (13.0-17.5) gm/dL Hct 32.9 L 30.2 L (39.0-53.0) % MCHC (31.0-37.0) g/dL Plt Count 61 L 57 L (150-450) k/uL Neutrophils # 10.2 H 9.4 H (1.3-7.7) k/uL Neutrophils # (Manual) (1.3-7.7) k/uL Lymphocytes # 0.9 L 0.9 L (1.0-4.8) k/uL Metamyelocytes # (Man) (0) k/uL Myelocytes # (Manual) (0) k/uL APTT 33.7 H (22.0-30.0) sec Fibrinogen (200-500) mg/dL Sodium (137-145) mmol/L Potassium (3.5-5.1) mmol/L Carbon Dioxide (22-30) mmol/L BUN (9-20) mg/dL Creatinine (0.66-1.25) mg/dL Glucose (74-99) mg/dL Calcium (8.4-10.2) mg/dL Lactate Dehydrogenase (313-618) U/L 07/01/17 07/01/17 07/01/17 Range/Units 06:03 06:03 06:03 WBC 11.4 H (3.8-10.6) k/uL RBC 3.12 L (4.30-5.90) m/uL Hgb 9.1 L (13.0-17.5) gm/dL Hct 30.0 L (39.0-53.0) % MCHC 30.4 L (31.0-37.0) g/dL Plt Count 59 L (150-450) k/uL Neutrophils # (1.3-7.7) k/uL Neutrophils # (Manual) 8.80 H (1.3-7.7) k/uL Lymphocytes # (1.0-4.8) k/uL Metamyelocytes # (Man) 0.23 H (0) k/uL Myelocytes # (Manual) 0.23 H (0) k/uL APTT (22.0-30.0) sec Fibrinogen 602 H (200-500) mg/dL Sodium 135 L (137-145) mmol/L Potassium 5.5 H (3.5-5.1) mmol/L Carbon Dioxide 17 L (22-30) mmol/L BUN 42 H (9-20) mg/dL Creatinine 3.88 H (0.66-1.25) mg/dL Glucose 110 H (74-99) mg/dL Calcium 8.2 L (8.4-10.2) mg/dL Lactate Dehydrogenase (313-618) U/L Microbiology - Last 24 Hours (Table) 06/27/17 10:40 Blood Culture - Preliminary Blood No Growth after 72 hours Assessment and Plan Assessment: 1. Bilateral upper lobe pneumonia with change in mental status, acute metabolic encephalopathy present on admission 2. Bladder cancer 3. Troponin 0.472, indeterminate 4. rhabdomyolysis 5. Acute on chronic renal failure, stage III 6. Acute UTI 7 possible THC abuse 8. Polysubstance abuse, history of 9. CAD 10. Thrombocytopenia 11. Bilateral hydronephrosis 12. Acute right leg DVT, 13. Hyperkalemia Plan: Continue on current medication regime ,monitoring and symptomatic treatment. Low potassium diet, Kayexalate ordered. Cystoscopy with bilateral stent placements to be attempted tomorrow per urology. Anticoagulation as per hematology/oncology recommendations. Close monitoring of hemoglobin, electrolytes with repeat labs ordered for a.m. Maintain nebulized bronchodilators and antibiotics.Further recommendations to follow. Prognosis guarded given multiple complex medical issues. Subacute rehab at discharge. The impression and plan of care has been dictated as directed. : I performed a history and examination of this patient, discussed the same with the dictator. I agree with the dictator's note ,documented as a scribe. Any additional findings or plans will be noted.
[2017-07-01] MEDS: ATORVASTATIN 20 MG TAB PO SCH (21:28)
[2017-07-01] MEDS: ESCITALOPRAM 20 MG TAB PO SCH (21:28)
--- NOTE | 2017-07-01 22:44 | P.PN ---
Progress Note - Text Progress Note Date: 07/01/17 The patient has experienced urethral bleeding overnight, which is somewhat improved today. His hemoglobin level has decreased to 7.9. An attempt was made to schedule him today for cystoscopy with ureteral stent placement, but the surgical schedule was full. The procedure will thus be performed tomorrow. Bladder tumor resection will also be performed if there is active bleeding. Patient understands the possibility that stent placement will be unsuccessful.
--- NOTE | 2017-07-01 23:00 | PN ---
PROGRESS NOTE DATE OF SERVICE: 07/01/2017. INTERVAL HISTORY: This 67-year-old gentleman who was admitted with multiple medical issues also had renal failure. Patient also had right leg DVT. Patient also on heparin. The patient has had hematuria. Heparin was stopped at this time. Past medical history reviewed. REVIEW OF SYSTEMS: Cardiovascular: No angina. Respiration as mentioned earlier. GI as mentioned earlier. GI as mentioned earlier. CURRENT MEDICATIONS: Reviewed include: 1. [place] 7.5. 2. DuoNeb q.i.d. 3. Aspirin 325 mg. 4. Lipitor 20 mg. 5. Lioresal 20 mg q6h p.r.n. 6. Cardizem 120 mg. 7. Lexapro 20 mg. 8. Zetia 10 mg. 9. Dilaudid 2 mg. 10.Toprol-XL. 11.Protonix. 12.Zosyn IV. 13.Ultram. 14.Desyrel. RECOMMENDATIONS AND DISCUSSION: In this 67-year-old gentleman who presented with multiple complex medical issues, we will monitor the patient closely. Continue the current medications, management and symptomatic treatment. Otherwise at this time I recommend to stop the heparin drip and consider IVC filter because of the drop in hemoglobin. Monitor closely. Transfusion p.r.n. and continue. Please refer to the previous dictation for further details. MMODL / IJN: [id number] /
[2017-07-02] MEDS: HYDROcodone/APAP 7.5-325MG 1 EACH TAB PO PRN (04:37)
[2017-07-02] MEDS: traMADol 50 MG TAB PO PRN (04:38)
[2017-07-02 06:09] LABS: HCT 23.3 % (39.0-53.0); HGB 7.3 gm/dL (13.0-17.5); MCH 29.1 pg (25.0-35.0); MCHC 31.5 g/dL (31.0-37.0); MCV 92.4 fL (80.0-100.0); Mean Platelet Volume 10.5; RBC 2.52 m/uL (4.30-5.90); RDW 13.6 % (11.5-15.5)
[2017-07-02 06:14] LABS: Platelet Count 64 k/uL (150-450)
[2017-07-02] MEDS: DILTIAZEM CD 120 MG CAP.ER.24H PO SCH (06:41)
[2017-07-02] MEDS: NITROGLYCERIN OINT 1 INCH/GM PACKET TOPICAL SCH ×4 (06:41→23:23)
[2017-07-02] MEDS: EZETIMIBE 10 MG TAB PO SCH (06:41)
[2017-07-02] MEDS: METOPROLOL SUCCINATE (ER) 25 MG TAB.ER.24H PO SCH (06:41)
[2017-07-02] MEDS ORDERED: IV FLUID CONTINUATION 425 ML IV ONE (07:23)
[2017-07-02] MEDS ORDERED: ROCURONIUM BROMIDE 10 MG/ML 10 ML VIAL IV ONE (07:38)
[2017-07-02] MEDS ORDERED: PROPOFOL 10 MG/ML 20 ML VIAL IV ONE (07:38)
[2017-07-02] MEDS ORDERED: LIDOCAINE 1% INJ 10MG/ML (20 ML MDV) ONE (07:38)
[2017-07-02] MEDS ORDERED: fentaNYL (PF) 50 MCG/ML 2 ML AMP ONE (07:38)
[2017-07-02] MEDS ORDERED: NEOSTIGMINE 1 MG/ML 10 ML VIAL ONE (07:38)
[2017-07-02] MEDS ORDERED: ePHEDrine SULFATE/0.9% NACL/PF 50 MG/5 ML SYRINGE IV ONE (07:38)
[2017-07-02] MEDS ORDERED: GLYCOPYRROLATE 0.2 MG/ML 2 ML VIAL ONE (07:38)
[2017-07-02] MEDS ORDERED: MIDAZOLAM 2 MG/2 ML VIAL ONE (07:38)
[2017-07-02] MEDS ORDERED: SUCCINYLCHOLINE CHLORIDE 100 MG/5 ML SYR IV ONE (07:38)
[2017-07-02] MEDS: PIPERACILLIN-TAZOBACTAM 3.375 GM in DEXTROSE/WATER 1 50ML.BAG IVPB SCH ×2 (07:57→20:20)
[2017-07-02] MEDS: IPRATROPIUM-ALBUTEROL 3 ML NEB INHALATION SCH ×4 (08:24→20:16)
[2017-07-02] MEDS ORDERED: LACTATED RINGERS 1,000 ML IV ONE ×2 (08:36)
[2017-07-02 09:00] LABS: Band Neutrophils % 2 %; Eosinophils # (M) 0.26 k/uL (0-0.7); Lymphocytes # (M) 0.77 k/uL (1.0-4.8); Metamyelocytes # (M) 0.26 k/uL (0); Metamyelocytes % 2 %; Monocytes # (M) 1.16 k/uL (0-1.0); Myelocytes # (M) 0.26 k/uL (0); Myelocytes % 2 %; Neutrophils % (M) 80 %; Nucleated Red Blood Cells 1 /100 WBC (0-0); Total Cells Counted 200; WBC 12.9 k/uL (3.8-10.6)
[2017-07-02] MEDS ORDERED: SODIUM CHLORIDE 0.9% IRRIGATIO 3,000 ML IRRIGATION ONE (10:12)
[2017-07-02] MEDS: HYDROmorphone 2 MG TAB PO PRN ×3 (11:23→23:23)
[2017-07-02] MEDS: PANTOPRAZOLE 40 MG TABLET PO SCH (11:25)
[2017-07-02] MEDS: SODIUM CHLORIDE 0.9% 1,000 ML IV SCH (11:26)
[2017-07-02] MEDS: ASPIRIN 325 MG TAB PO SCH (12:45)
[2017-07-02 13:35] LABS: Calcium 7.7 mg/dL (8.4-10.2); Potassium 5.7 mmol/L (3.5-5.1)
--- NOTE | 2017-07-02 14:19 | PN ---
PROGRESS NOTE Patient is seen for followup for acute kidney injury, which is mainly obstructive uropathy secondary to underlying bladder cancer. Patient did go to the OR today and it does not appear that he had stents placed. He has good urine output. He has the indwelling Michelle catheter. Patient is maintained on IV fluids. His serum creatinine has improved too. Patient is maintained on IV fluids. I do not have labs from today. PHYSICAL EXAMINATION: Currently patient is comfortable, awake. He is not in any acute distress. Blood pressure is 122/88, heart rate 77 per minute. He is afebrile. Examination of the heart, S1, S2. Examination of the lungs, bilateral breath sounds are heard. Abdomen is soft, nontender. 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 Patient moving all 4 extremities. Examination of the lower extremities, there is edema in his right lower extremity. Lab show sodium of 135 from yesterday, potassium 5.5 yesterday. We do not have labs back from today yet. ASSESSMENT: 1. Acute kidney injury secondary to obstructive uropathy, status post cystoscopy done today. We will repeat labs. Patient has good urine output. He is maintained on IV fluids which I will continue for now. He is not on any nephrotoxic medications. 2. Bladder cancer with evidence of progression noted on CT scan. 3. Hyperkalemia associated with acute kidney injury, obstructive uropathy. Repeat labs today. 4. Right femoral deep venous thrombosis, maintained on heparin. PLAN: Check labs today. MMODL / IJN: [id number] /
[2017-07-02] MEDS ORDERED: SODIUM POLYSTYRENE SULFONATE 15 GM/60 ML BOTTLE PO ONE (15:10)
[2017-07-02] MEDS ORDERED: LIDOCAINE 2% INJ 20 MG/ML (20 ML MDV) ONE (15:20)
[2017-07-02] MEDS ORDERED: LIDOCAINE 2% INJ 20 MG/ML SQ ONE (15:49)
[2017-07-02] MEDS ORDERED: IODIXANOL 320 MG/ML 100 ML IV ONE (16:03)
[2017-07-02] MEDS ORDERED: IV FLUID CONTINUATION 1,000 ML IV ONE (16:03)
--- NOTE | 2017-07-02 16:52 | P.PN ---
Subjective Progress Note Date: 07/02/17 Progress note being dictated for Dr. Jiang Interval history: This is a 67-year-old gentleman admitted with syncope, fall, acute metabolic encephalopathy, elevated troponins, rhabdomyolysis, renal failure, UTI and multiple other medical issues. Maintained on gentle IV fluid hydration, empiric antibiotics. Mildly worsening renal function. CK improving. Sensorium significantly improved. Evaluated by cardiology with recommendations noted. Evaluated by physical therapy with subacute rehab recommended at discharge. Troponins 0.119, 0.472, 0.567. Afebrile, normal WBC. Urine culture negative. Pulmonary blood cultures negative. Echo suboptimal, reporting moderately impaired LV function, EF 35-40%. 07/01/17 maintained on IV fluid hydration at 75 MLS an hour. Renal function continues to worsen, 3.88. Hematuria, currently hemoglobin 9.1.Repeat Hgb pending. Evaluated by urology.Cystoscopy with placement of bilateral ureteral stents scheduled for tomorrow; bladder tumor resection also being considered. Hyperkalemic, K5.5. No chest pain, no palpitations. Afebrile. 07/02/17 scheduled for cystoscopy and placement of bilateral ureteral stents with urology as well as IVC filter per interventional radiology today. Yesterday hyperkalemic, potassium 5.5, received Kayexalate with follow-up BMP pending. Hematuria persists. Hemoglobin 7.3. Denies chest pain, palpitations. Oxygen weaned down to 4 L nasal cannula, maintaining O2 sats of 95%.afebrile. Objective - Vital Signs Vital signs: Vital Signs Temp 98 F 07/02/17 09:20 Pulse 72 07/02/17 10:51 Resp 16 07/02/17 10:51 BP 139/72 07/02/17 10:51 Pulse Ox 95 07/02/17 10:51 Intake & Output 07/01/17 07/02/17 07/02/17 18:59 06:59 18:59 Intake Total 525 725 Output Total 920 Balance 525 -195 Weight 72 kg 74.5 kg Intake: IV 525 725 Sodium Chloride 0.9% 1, 525 000 ml @ 75 mls/hr IV . [id number] BESSIE Rx#:[id number] Output: Urine 900 Estimated Blood Loss 20 Other: Voiding Method Diaper Diaper Incontinent Incontinent # Voids 1 - Exam PHYSICAL EXAM: VITAL SIGNS: As above GENERAL: Sitting up in bed, tired appearing, no acute distress HEENT: Conjunctivae normal. eyes normal. Left orbital Bruising , oral mucosa moist NECK: No JVD. No thyroid enlargement. No LNs CARDIOVASCULAR: S1, S2 muffled. No murmur RESPIRATION: Breath sounds diminished in the bases. Scattered rhonchi and crackles. expiratory wheezes ABDOMEN: Soft, nontender . No guarding. no masses palpable.Bowel sounds heard. LEGS: No edema. no swelling PSYCHIATRY: Alert and oriented -2, mood and affect normal. NERVOUS SYSTEM: Cranial N 2-12 grossly normal. Moves all 4 limbs. Diffuse weakness No focal deficits. Skin: no ulcer no rash Joints: No active swelling. No inflammation. Lymphatic system. No LN neck axilla or groin. - Labs CBC & Chem 7: 07/02/17 05:33 07/02/17 05:33 Labs: Abnormal Lab Results - Last 24 Hours (Table) 06/30/17 07/01/17 07/02/17 Range/Units 06:15 17:22 05:33 WBC 11.9 H 12.9 H (3.8-10.6) k/uL RBC 2.69 L 2.52 L (4.30-5.90) m/uL Hgb 7.9 L 7.3 L (13.0-17.5) gm/dL Hct 25.6 L 23.3 L (39.0-53.0) % Plt Count 46 L* 56 L 64 L (150-450) k/uL Neutrophils # (Manual) 10.50 H (1.3-7.7) k/uL Lymphocytes # (Manual) 0.77 L (1.0-4.8) k/uL Monocytes # (Manual) 1.16 H (0-1.0) k/uL Metamyelocytes # (Man) 0.26 H (0) k/uL Myelocytes # (Manual) 0.26 H (0) k/uL Nucleated RBCs 1 H (0-0) /100 WBC Microbiology - Last 24 Hours (Table) 06/27/17 10:40 Blood Culture - Preliminary Blood No Growth after 96 hours Assessment and Plan Assessment: 1. Bilateral upper lobe pneumonia with change in mental status, acute metabolic encephalopathy present on admission 2. Bladder cancer, computed tomography scan suggests progression 3. Troponin 0.472, indeterminate 4. rhabdomyolysis 5. Acute on chronic renal failure, stage III 6. Acute UTI 7 possible THC abuse 8. Polysubstance abuse, history of 9. CAD 10. Thrombocytopenia 11. Bilateral hydronephrosis 12. Acute right femoral DVT, 13. Hyperkalemia 14. Acute on chronic blood loss anemia secondary to hematuria, chronic renal failure Plan: Continue on current medication regime ,monitoring and symptomatic treatment. BMP pending. Cystoscopy with bilateral stent placements pending as well as IVC filter placement. 2 units of packed RBCs ordered. Close monitoring of hemoglobin, electrolytes with repeat labs ordered for a.m. Maintain nebulized bronchodilators and antibiotics.Further recommendations to follow. Prognosis guarded given multiple complex medical issues. Subacute rehab at discharge. The impression and plan of care has been dictated as directed. : I performed a history and examination of this patient, discussed the same with the dictator. I agree with the dictator's note ,documented as a scribe. Any additional findings or plans will be noted.
[2017-07-02] MEDS: ATORVASTATIN 20 MG TAB PO SCH (19:51)
[2017-07-02] MEDS: ESCITALOPRAM 20 MG TAB PO SCH (19:51)
[2017-07-03] MEDS: HYDROmorphone 2 MG TAB PO PRN ×4 (04:57→21:11)
[2017-07-03] MEDS: SODIUM CHLORIDE 0.9% 1,000 ML IV SCH ×2 (04:58→16:37)
[2017-07-03] MEDS: PANTOPRAZOLE 40 MG TABLET PO SCH (06:31)
[2017-07-03] MEDS: NITROGLYCERIN OINT 1 INCH/GM PACKET TOPICAL SCH ×3 (06:31→18:13)
[2017-07-03] MEDS: DILTIAZEM CD 120 MG CAP.ER.24H PO SCH (06:31)
--- NOTE | 2017-07-03 06:47 | P.OP ---
Date of Procedure: 07/02/17 Preoperative Diagnosis: Bladder Cancer, Urinary Clot Retention Postoperative Diagnosis: Same Procedure(s) Performed: Cystoscopy, Evacuation of Clot, Fulgaration of Bleeders Anesthesia: DEBA Surgeon: Margarito Acevedo Estimated Blood Loss (ml): 20 IV fluids (ml): 650 Pathology: none sent Condition: stable Disposition: PACU Indications for Procedure: The patient is a 67-year-old male who presented in early 2014 with gross painless hematuria. Urine cytology was positive, and a CT urogram suggested the presence of a 2.5 cm bladder mass. 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 He has been treated with chemoradiation but now presents back with hematuria. Cystoscopy in February 2017 revealed a sessile tumor on the anterior bladder wall, and I suggested he undergo transurethral resection. However, he experienced angina and he was thus advised that he would require cardiac clearance. He is now admitted with gross hematuria and bilateral hydronephrosis. Operative Findings: Multiple tumors on right lateral and anterior bladder teague. Active bleeding from right lateral bladder wall. Multiple clots removed from the bladder. Ureteral orifices could not be identified. Description of Procedure: The patient was taken to the operating room and placed in the dorsolithotomy position, with his legs supported in Jose Carlos stirrups. The external genitalia was prepped and draped sterilely. The 30 lens was used to introduce the 22 Irish Storz cystoscopic sheath through the urethra and into the bladder under direct vision. The anterior urethra was somewhat irregular, the significance of which is unclear. The prostatic urethra was unremarkable. No tumor was seen within the prostatic urethra, which did not appear to be obstructed. Upon entering the bladder, multiple clots were seen. These were removed using the Ellik evacuator. The bladder was then inspected. Active bleeder was noted on the right lateral bladder wall. This was controlled using the Bugbee electrode. Visualization subsequently improved, and it was evident that there was also oozing from the anterior bladder wall. This also was cauterized using the Bugbee electrode. At this time, hemostasis was quite good. The bladder was carefully inspected. No papillary tumors per se were noted. However, nodular and sessile tumors were seen most prominently on the right lateral bladder wall. Although no tumors were seen on the posterior bladder wall, the ureteral orifices could not be identified. At this point, the cystoscope was removed and a 20 Irish, three-way Michelle catheter was placed. The return was faintly pink tinged. Continuous bladder irrigation was started using 0.9 normal saline, and the return was clear even with the irrigant running slowly. Patient tolerated procedure well and was taken to the recovery room in stable condition.
[2017-07-03 06:52] LABS: Calcium 7.3 mg/dL (8.4-10.2)
[2017-07-03 06:53] LABS: Basophils # (A) 0.1 k/uL (0-0.2); Basophils % (A) 1 %; Eosinophils # (A) 0.1 k/uL (0-0.7); Eosinophils % (A) 1 %; Lymphocytes # (A) 0.9 k/uL (1.0-4.8); Lymphocytes % (A) 8 %; MCH 28.5 pg (25.0-35.0); MCHC 30.5 g/dL (31.0-37.0); MCV 93.5 fL (80.0-100.0); Mean Platelet Volume 11.1; Monocytes # (A) 0.6 k/uL (0-1.0); Monocytes % (A) 5 %; Neutrophils # (A) 9.5 k/uL (1.3-7.7); Neutrophils % (A) 82 %; RBC 1.93 m/uL (4.30-5.90); RDW 13.9 % (11.5-15.5); WBC 11.6 k/uL (3.8-10.6)
[2017-07-03 06:54] LABS: Platelet Count 57 k/uL (150-450)
[2017-07-03 06:57] LABS: HGB 5.5 gm/dL (13.0-17.5)
[2017-07-03 06:58] LABS: HCT 18.1 % (39.0-53.0)
[2017-07-03 07:48] LABS: INR 1.2 (<1.2); Prothrombin Time 11.2 sec (9.0-12.0)
[2017-07-03] MEDS ORDERED: FUROSEMIDE 10 MG/ML 2 ML VIAL IV ONE ×2 (08:00→15:34)
[2017-07-03] MEDS: IPRATROPIUM-ALBUTEROL 3 ML NEB INHALATION SCH ×4 (08:17→20:59)
--- NOTE | 2017-07-03 08:51 | IR ---
EXAMINATION TYPE: IR IVC filter placement DATE OF EXAM: 07/02/2017 COMPARISON: CT 06/29/2017, lower extremity Doppler duplex 06/30/2017 HISTORY: Deep venous thrombosis, contraindication to anticoagulation FINDINGS: Maximal barrier technique was utilized. After informed consent, the skin overlying the left groin wa s prepped and draped in a sterile fashion and Lidocaine used for local anesthesia. A skin blanche was m lobo with a scalpel. Standard retrograde venotomy was performed in the common femoral vein using love dard Seldinger technique with a 21-gauge needle under direct ultrasound guidance. Ultrasound was used to sterile technique. The left common femoral vein was noted to be compressible and patent by ultras ound, and ultrasound images obtained and submitted on patient's chart. A 0.035 inch wire was advance d centrally and subsequently the trap ease sheath was advanced over the wire into the region of the c onfluence of the iliac veins. Digital inferior venacavography was performed. Based on the findings the filter was deployed in the infrarenal location. Spot image obtained verified placement. Sheath was withdrawn and hemostasis achieved. There is no immediate complication; the patient is discharge d in stable condition. Findings: No filling defect to suggest thrombus within the visualized inferior vena cava. IMPRESSION: STATUS POST INFRARENAL INFERIOR VENA CAVA FILTER PLACEMENT. THIS PROCEDURE WAS PERFORMED BY THE [facility].
[2017-07-03] MEDS ORDERED: FUROSEMIDE 10 MG/ML 4 ML VIAL IV STA (08:56)
[2017-07-03] MEDS ORDERED: SODIUM POLYSTYRENE SULFONATE 15 GM/60 ML BOTTLE PO STA (08:57)
[2017-07-03] MEDS: EZETIMIBE 10 MG TAB PO SCH (10:12)
[2017-07-03] MEDS: METOPROLOL SUCCINATE (ER) 25 MG TAB.ER.24H PO SCH (10:13)
[2017-07-03] MEDS: BACLOFEN 10 MG TAB PO PRN ×2 (10:14→20:48)
[2017-07-03] MEDS: SODIUM CHLORIDE 0.9% IRRIGATIO 3,000 ML IRRIGATION SCH ×4 (13:51→23:30)
--- NOTE | 2017-07-03 13:53 | PN ---
PROGRESS NOTE Patient is seen for followup for acute kidney injury, which is mainly obstructive. Patient had cystoscopy done yesterday and it appears that the ureters could not be identified. The patient has fulguration of the bleeders. He has been having irrigation done; however, he has not had much urine output. Renal function has worsened today with persistent hyperkalemia, which is also worsening. Nephrostomy tubes is the next option and at this time patient is considering his options including hospice. He remains on IV fluids at 75 mL an hour. Hemoglobin was down to 5.5, and patient is also receiving packed RBCs transfusion. PHYSICAL EXAMINATION: Blood pressure is 142/69, heart rate 84 per minute. He is afebrile. Examination of the heart, S1, S2. Examination of the lungs, bilateral breath sounds are heard. Decreased breath sounds at bases. Abdomen is soft, distended. Tenderness noted on the right upper quadrant. Examination of the lower extremities shows edema 2+ in the right lower extremity. No edema in the left lower extremity. LABS: Show a hemoglobin of 5.5, white count 11.6, sodium 131, potassium 6.0, CO2 is 18, BUN 58, serum creatinine 6.37, calcium is 7.3. ASSESSMENT: 1. Acute kidney injury, obstructive uropathy secondary to underlying bladder cancer, status post cystoscopy and fulguration of bleeders with no significant urine output. Next option is nephrostomy tube if patient is willing; however, he is currently considering hospice as well. 2. Hyperkalemia secondary to progressive renal failure. 3. Metabolic acidosis secondary to renal failure. 4. Hyponatremia secondary to renal failure. 5. Severe anemia associated with ongoing hematuria, currently receiving packed RBC transfusion. PLAN: Continue IV fluids. Will give Lasix x1 and overall prognosis is guarded. Currently patient is considering hospice options. If he decides against that, he will need to proceed with nephrostomy tube placement for the obstructive uropathy and progressive renal failure. MMODL / IJN: [id number] /
[2017-07-03] MEDS: PIPERACILLIN-TAZOBACTAM 3.375 GM in DEXTROSE/WATER 1 50ML.BAG IVPB SCH ×2 (16:08→21:02)
[2017-07-03 17:13] LABS: HCT 24.5 % (39.0-53.0); MCH 29.1 pg (25.0-35.0); MCHC 31.9 g/dL (31.0-37.0); MCV 91.3 fL (80.0-100.0); Mean Platelet Volume 11.4; RBC 2.69 m/uL (4.30-5.90); RDW 14.6 % (11.5-15.5); WBC 13.3 k/uL (3.8-10.6)
[2017-07-03 17:16] LABS: Platelet Count 50 k/uL (150-450)
[2017-07-03 17:17] LABS: HGB 7.8 gm/dL (13.0-17.5)
[2017-07-03 17:24] LABS: INR 1.1 (<1.2); Prothrombin Time 10.5 sec (9.0-12.0)
[2017-07-03 17:48] LABS: Band Neutrophils % 14 %; Lymphocytes # (M) 0.93 k/uL (1.0-4.8); Metamyelocytes # (M) 0.67 k/uL (0); Metamyelocytes % 5 %; Monocytes # (M) 0.53 k/uL (0-1.0); Myelocytes # (M) 0.13 k/uL (0); Myelocytes % 1 %; Neutrophils % (M) 69 %; Nucleated Red Blood Cells 0 /100 WBC (0-0); Total Cells Counted 100
--- NOTE | 2017-07-03 17:48 | P.PN ---
Progress Note - Text Progress Note Date: 07/03/17 Mr. Garcia' serum creatinine level has risen to 6.37. His urine is essentially clear. I had a detailed discussion with the patient and his son. I explained that the ureteral orifices could not be identified at the time of cystoscopy, and therefore the stent could not be placed. We discussed the pros and cons of nephrostomy tube insertion. He clearly understands that his bladder cancer is metastatic and progressive, and for this reason I suggested that he may choose Comfort Care at this time. However, he states that he "is a fighter" and requests that nephrostomy tubes be placed. I discussed this with Dr. Mcclelland, and he will attempt to place nephrostomy tubes once the patient is medically stable.
--- NOTE | 2017-07-03 19:29 | P.PN ---
Subjective Progress Note Date: 07/03/17 Progress note being dictated for Dr. Jiang Interval history: This is a 67-year-old gentleman admitted with syncope, fall, acute metabolic encephalopathy, elevated troponins, rhabdomyolysis, renal failure, UTI and multiple other medical issues. Maintained on gentle IV fluid hydration, empiric antibiotics. Mildly worsening renal function. CK improving. Sensorium significantly improved. Evaluated by cardiology with recommendations noted. Evaluated by physical therapy with subacute rehab recommended at discharge. Troponins 0.119, 0.472, 0.567. Afebrile, normal WBC. Urine culture negative. Pulmonary blood cultures negative. Echo suboptimal, reporting moderately impaired LV function, EF 35-40%. 07/01/17 maintained on IV fluid hydration at 75 MLS an hour. Renal function continues to worsen, 3.88. Hematuria, currently hemoglobin 9.1.Repeat Hgb pending. Evaluated by urology.Cystoscopy with placement of bilateral ureteral stents scheduled for tomorrow; bladder tumor resection also being considered. Hyperkalemic, K5.5. No chest pain, no palpitations. Afebrile. 07/02/17 scheduled for cystoscopy and placement of bilateral ureteral stents with urology as well as IVC filter per interventional radiology today. Yesterday hyperkalemic, potassium 5.5, received Kayexalate with follow-up BMP pending. Hematuria persists. Hemoglobin 7.3. Denies chest pain, palpitations. Oxygen weaned down to 4 L nasal cannula, maintaining O2 sats of 95%.afebrile. 07/03/17 yesterday he underwent cystoscopy, reporting multiple tumors on right lateral and anterior bladder wall, active bleeding from right lateral bladder wall evacuation of multiple clots, fulguration of bleeders with ureteral orifices unable to be identified, therefore inability to place stents. Maintained on continuous bladder irrigation. Appears to have a no urine output , urine essentially clear in the Michelle catheter tube. Renal function continues to worsen up to 6.37, hyperkalemic, with hemoglobin down to 5.5. Receiving packed RBCs. Yesterday discussed progressive metastatic bladder cancer, patient was unsure whether to proceed with treatment versus comfort care. Urology updated patient's son on the bladder cancer -metastatic, progressive with recommendations/options of comfort care offered. Today patient requesting everything be done. Increased abdominal and bilateral flank pain. Scheduled for nephrostomy tube insertion via interventional radiology. Objective - Vital Signs Vital signs: Vital Signs Temp 96.7 F L 07/03/17 11:52 Pulse 84 07/03/17 11:52 Resp 18 07/03/17 11:52 BP 142/69 07/03/17 11:52 Pulse Ox 92 L 07/03/17 11:52 Intake & Output 07/02/17 07/03/17 07/03/17 18:59 06:59 18:59 Intake Total 2394 300 590 Output Total 3120 2000 950 Balance -726 -1700 -360 Weight 74.5 kg 81 kg Intake: IV 1950 300 Sodium Chloride 0.9% 1, 300 300 000 ml @ 75 mls/hr IV . [id number] COUNTS INCLUDE 234 BEDS AT THE [facility] Rx#:[id number] Oral 444 280 Blood Product 310 Rc Pheresis 2 As3 Unit 310 [id number] Output: Urine 3100 2000 950 3-way Urethral 2200 2000 750 Estimated Blood Loss 20 Other: Voiding Method Indwelling Catheter Indwelling Catheter Indwelling Catheter - Exam PHYSICAL EXAM: VITAL SIGNS: As above GENERAL: Sitting up in bed, tired appearing, no acute distress HEENT: Conjunctivae normal. eyes normal. Left orbital Bruising , oral mucosa moist NECK: No JVD. No thyroid enlargement. No LNs CARDIOVASCULAR: S1, S2 muffled. No murmur RESPIRATION: Breath sounds diminished in the bases. Scattered rhonchi and crackles. expiratory wheezes ABDOMEN: Soft, distended, tender bilateral flanks . No guarding. no masses palpable.Bowel sounds heard. LEGS: No edema. no swelling PSYCHIATRY: Alert and oriented -2, mood and affect normal. NERVOUS SYSTEM: Cranial N 2-12 grossly normal. Moves all 4 limbs. Diffuse weakness No focal deficits. Skin: no rash - Labs CBC & Chem 7: 07/03/17 16:51 07/03/17 05:55 Labs: Abnormal Lab Results - Last 24 Hours (Table) 06/30/17 07/02/17 07/03/17 Range/Units 14:25 05:33 05:55 WBC 11.6 H (3.8-10.6) k/uL RBC 1.93 L (4.30-5.90) m/uL Hgb 5.5 L* D (13.0-17.5) gm/dL Hct 18.1 L* (39.0-53.0) % MCHC 30.5 L (31.0-37.0) g/dL Plt Count 57 L (150-450) k/uL Neutrophils # 9.5 H (1.3-7.7) k/uL Lymphocytes # 0.9 L (1.0-4.8) k/uL INR (<1.2) Sodium 133 L (137-145) mmol/L Potassium 5.7 H (3.5-5.1) mmol/L Carbon Dioxide 20 L (22-30) mmol/L BUN 54 H (9-20) mg/dL Creatinine 5.40 H* (0.66-1.25) mg/dL Glucose 112 H (74-99) mg/dL Calcium 7.7 L (8.4-10.2) mg/dL Crossmatch See Detail 07/03/17 07/03/17 Range/Units 05:55 05:55 WBC (3.8-10.6) k/uL RBC (4.30-5.90) m/uL Hgb (13.0-17.5) gm/dL Hct (39.0-53.0) % MCHC (31.0-37.0) g/dL Plt Count (150-450) k/uL Neutrophils # (1.3-7.7) k/uL Lymphocytes # (1.0-4.8) k/uL INR 1.2 H (<1.2) Sodium 131 L (137-145) mmol/L Potassium 6.0 H (3.5-5.1) mmol/L Carbon Dioxide 18 L (22-30) mmol/L BUN 58 H (9-20) mg/dL Creatinine 6.37 H* (0.66-1.25) mg/dL Glucose 102 H (74-99) mg/dL Calcium 7.3 L (8.4-10.2) mg/dL Crossmatch Microbiology - Last 24 Hours (Table) 06/27/17 10:40 Blood Culture - Preliminary Blood No Growth after 120 hours Assessment and Plan Assessment: 1. Bilateral upper lobe pneumonia with change in mental status, acute metabolic encephalopathy present on admission 2. Bladder cancer, computed tomography scan suggests progression; status post cystoscopy 3. Troponin 0.472, indeterminate 4. rhabdomyolysis 5. Acute on chronic renal failure, stage III 6. Acute UTI 7 possible THC abuse 8. Polysubstance abuse, history of 9. CAD 10. Thrombocytopenia 11. Bilateral hydronephrosis 12. Acute right femoral DVT, status post IVC filter placement 13. Hyperkalemia 14. Acute on chronic blood loss anemia secondary to hematuria, chronic renal failure Plan: Continue on current medication regime ,monitoring and symptomatic treatment. Receiving Kayexalate and "hyperkalemic regimen "as per nephrology, 2 units of packed RBC transfusion in progress. Nephrostomy tube insertion pending with IR. Prognosis guarded given metastatic cancer, progressive. Close monitoring of hemoglobin, electrolytes with repeat labs ordered for a.m. follow closely with urology, nephrology, oncology. The impression and plan of care has been dictated as directed. : I performed a history and examination of this patient, discussed the same with the dictator. I agree with the dictator's note ,documented as a scribe. Any additional findings or plans will be noted.
[2017-07-03] MEDS: ATORVASTATIN 20 MG TAB PO SCH (21:03)
[2017-07-03] MEDS: ESCITALOPRAM 20 MG TAB PO SCH (21:03)
[2017-07-04] MEDS: NITROGLYCERIN OINT 1 INCH/GM PACKET TOPICAL SCH ×5 (00:13→23:58)
[2017-07-04] MEDS: HYDROmorphone 2 MG TAB PO PRN ×4 (01:13→18:27)
[2017-07-04] MEDS: SODIUM CHLORIDE 0.9% IRRIGATIO 3,000 ML IRRIGATION SCH ×4 (01:30→21:32)
[2017-07-04] MEDS: HYDROcodone/APAP 7.5-325MG 1 EACH TAB PO PRN ×3 (03:17→17:43)
[2017-07-04 06:27] LABS: HCT 22.2 % (39.0-53.0); HGB 7.2 gm/dL (13.0-17.5); MCH 28.5 pg (25.0-35.0); MCHC 32.5 g/dL (31.0-37.0); MCV 87.7 fL (80.0-100.0); Mean Platelet Volume 11.2; RBC 2.53 m/uL (4.30-5.90); RDW 15.2 % (11.5-15.5)
[2017-07-04 06:43] LABS: Potassium 5.7 mmol/L (3.5-5.1)
[2017-07-04 06:45] LABS: Platelet Count 51 k/uL (150-450)
[2017-07-04 06:49] LABS: Calcium 6.6 mg/dL (8.4-10.2)
[2017-07-04 07:10] LABS: Band Neutrophils % 1 %; Eosinophils # (M) 0.25 k/uL (0-0.7); Lymphocytes # (M) 1.25 k/uL (1.0-4.8); Monocytes # (M) 0.63 k/uL (0-1.0); Myelocytes # (M) 0.25 k/uL (0); Myelocytes % 2 %; Neutrophils % (M) 82 %; Nucleated Red Blood Cells 2 /100 WBC (0-0); Total Cells Counted 200; WBC 12.5 k/uL (3.8-10.6)
[2017-07-04 07:11] LABS: Large Platelets Present; Polychromasia Present
[2017-07-04] MEDS: SODIUM CHLORIDE 0.9% 1,000 ML IV SCH (07:38)
[2017-07-04] MEDS: DILTIAZEM CD 120 MG CAP.ER.24H PO SCH (08:02)
[2017-07-04] MEDS: PANTOPRAZOLE 40 MG TABLET PO SCH (08:02)
[2017-07-04] MEDS: IPRATROPIUM-ALBUTEROL 3 ML NEB INHALATION SCH ×4 (08:56→20:50)
[2017-07-04] MEDS ORDERED: SODIUM POLYSTYRENE SULFONATE 15 GM/60 ML BOTTLE PO STA (09:02)
[2017-07-04] MEDS: PIPERACILLIN-TAZOBACTAM 3.375 GM in DEXTROSE/WATER 1 50ML.BAG IVPB SCH ×2 (09:23→21:53)
[2017-07-04] MEDS: METOPROLOL SUCCINATE (ER) 25 MG TAB.ER.24H PO SCH (09:34)
[2017-07-04] MEDS: EZETIMIBE 10 MG TAB PO SCH (09:34)
[2017-07-04] MEDS: BACLOFEN 10 MG TAB PO PRN ×2 (09:34→18:45)
--- NOTE | 2017-07-04 15:09 | PN ---
PROGRESS NOTE Patient is seen for followup for acute kidney injury secondary to obstructive uropathy from progressive bladder cancer. The option of nephrostomy tube versus hospice was discussed and it appears that the patient wants to proceed with nephrostomy tube placement. His renal function has been worsening with no significant urine output. The IV fluids were discontinued yesterday. PHYSICAL EXAMINATION: On examination today, blood pressure is 131/61, heart rate 73 per minute. He is afebrile. Examination of the heart S1, S2. Examination lungs decreased breath sounds bases at the bases. ABDOMEN: Soft, distended, nontender. Exam of lower extremity shows edema in the right lower extremity about 2+. LABS SHOW: Sodium of 124, potassium 5.7, chloride 92, BUN 70, serum creatinine 6.97, calcium 6.6. Hemoglobin was 7.2. ASSESSMENT: 1. Acute kidney injury, obstructive uropathy secondary to progressive bladder cancer, currently scheduled for nephrostomy tube placement. 2. Hyperkalemia associated with acute kidney injury and obstructive uropathy status post Kayexalate. 3. Hyponatremia secondary to renal failure. IV fluids are now discontinued. The patient received Lasix yesterday. This should improve as renal function improves after nephrostomy tube placement. 4. Anemia secondary to the hematuria status post packed RBCs transfusion. 5. Metabolic acidosis secondary to renal failure. Start sodium bicarb. 6. Progressive bladder being followed by Oncology. PLAN: Start sodium bicarb. We will repeat labs after nephrostomy tube placement. Overall prognosis is guarded. MMODL / IJN: [id number] /
[2017-07-04] MEDS: SENNOSIDES-DOCUSATE SODIUM 1 EACH TAB PO SCH ×2 (15:57→21:54)
--- NOTE | 2017-07-04 16:19 | P.PN ---
Subjective Progress Note Date: 07/04/17 Progress note being dictated for Dr. Jiang Interval history: This is a 67-year-old gentleman admitted with syncope, fall, acute metabolic encephalopathy, elevated troponins, rhabdomyolysis, renal failure, UTI and multiple other medical issues. Maintained on gentle IV fluid hydration, empiric antibiotics. Mildly worsening renal function. CK improving. Sensorium significantly improved. Evaluated by cardiology with recommendations noted. Evaluated by physical therapy with subacute rehab recommended at discharge. Troponins 0.119, 0.472, 0.567. Afebrile, normal WBC. Urine culture negative. Pulmonary blood cultures negative. Echo suboptimal, reporting moderately impaired LV function, EF 35-40%. 07/01/17 maintained on IV fluid hydration at 75 MLS an hour. Renal function continues to worsen, 3.88. Hematuria, currently hemoglobin 9.1.Repeat Hgb pending. Evaluated by urology.Cystoscopy with placement of bilateral ureteral stents scheduled for tomorrow; bladder tumor resection also being considered. Hyperkalemic, K5.5. No chest pain, no palpitations. Afebrile. 07/02/17 scheduled for cystoscopy and placement of bilateral ureteral stents with urology as well as IVC filter per interventional radiology today. Yesterday hyperkalemic, potassium 5.5, received Kayexalate with follow-up BMP pending. Hematuria persists. Hemoglobin 7.3. Denies chest pain, palpitations. Oxygen weaned down to 4 L nasal cannula, maintaining O2 sats of 95%.afebrile. 07/03/17 yesterday he underwent cystoscopy, reporting multiple tumors on right lateral and anterior bladder wall, active bleeding from right lateral bladder wall evacuation of multiple clots, fulguration of bleeders with ureteral orifices unable to be identified, therefore inability to place stents. Maintained on continuous bladder irrigation. Appears to have a no urine output , urine essentially clear in the Michelle catheter tube. Renal function continues to worsen up to 6.37, hyperkalemic, with hemoglobin down to 5.5. Receiving packed RBCs. Yesterday discussed progressive metastatic bladder cancer, patient was unsure whether to proceed with treatment versus comfort care. Urology updated patient's son on the bladder cancer -metastatic, progressive with recommendations/options of comfort care offered. Today patient requesting everything be done. Increased abdominal and bilateral flank pain. Scheduled for nephrostomy tube insertion via interventional radiology. 07/04/17 Nephrostomy tube scheduled for tomorrow. RBCs and platelets prior to procedure secheduled.Current hemoglobin 7.2 and platelets 51. Renal function continues to worsen. Minimal urine output. Acidotic, CO2 16. Sodium bicarb initiated. Yesterday requiring 2-3 LnNC O2, currently maintaining 90% on 4 l NC. Hyperkalemic, receiving Kayexalate as per nephrology. Complains of Bilateral flank pain. Telemetry sinus rhythm. Objective - Vital Signs Vital signs: Vital Signs Temp 97.0 F L 07/04/17 11:15 Pulse 73 07/04/17 11:15 Resp 20 07/04/17 11:15 BP 131/61 07/04/17 11:15 Pulse Ox 91 L 07/04/17 11:15 Intake & Output 07/03/17 07/04/17 07/04/17 18:59 06:59 18:59 Intake Total 1740 225 50 Output Total 8250 200 4500 Balance -6510 25 -4450 Weight 84 kg Intake: IV 225 Sodium Chloride 0.9% 1, 225 000 ml @ 75 mls/hr IV . [id number] [facility] Rx#:[id number] Intake, IV Titration 50 Amount Piperacillin-Tazobactam 3 50 .375 gm In Dextrose/Water 1 50ml.bag @ 12.5 mls/hr IVPB Q12HR [facility] Rx#: [id number] Oral 1120 Blood Product 620 Rc Pheresis 2 As3 Unit 310 [id number] Rc Pheresis 2 As3 Unit 310 [id number] Output: Urine 8250 200 3-way Urethral 8050 100 Other 4500 Other: Voiding Method Indwelling Catheter Indwelling Catheter Indwelling Catheter - Exam PHYSICAL EXAM: VITAL SIGNS: As above GENERAL: Sitting up in bed, tired appearing, no acute distress HEENT: Conjunctivae normal. eyes normal. Left orbital Bruising , oral mucosa moist NECK: No JVD. No thyroid enlargement. No LNs CARDIOVASCULAR: S1, S2 muffled. No murmur RESPIRATION: Breath sounds diminished in the bases. Scattered rhonchi and crackles. ABDOMEN: Soft, distended, tender bilateral flanks . No guarding. no masses palpable.Bowel sounds heard. LEGS: Positive edema of right lower extremity. PSYCHIATRY: Alert and oriented -2, mood and affect normal. NERVOUS SYSTEM: Cranial N 2-12 grossly normal. Moves all 4 limbs. Diffuse weakness No focal deficits. Skin: no rash - Labs CBC & Chem 7: 07/04/17 05:48 07/04/17 05:48 Labs: Abnormal Lab Results - Last 24 Hours (Table) 06/30/17 07/03/17 07/04/17 Range/Units 14:25 16:51 05:48 WBC 13.3 H 12.5 H (3.8-10.6) k/uL RBC 2.69 L 2.53 L (4.30-5.90) m/uL Hgb 7.8 L D 7.2 L (13.0-17.5) gm/dL Hct 24.5 L 22.2 L (39.0-53.0) % Plt Count 50 L* 51 L (150-450) k/uL Neutrophils # (Manual) 11.00 H 10.30 H (1.3-7.7) k/uL Lymphocytes # (Manual) 0.93 L (1.0-4.8) k/uL Metamyelocytes # (Man) 0.67 H (0) k/uL Myelocytes # (Manual) 0.13 H 0.25 H (0) k/uL Nucleated RBCs 2 H (0-0) /100 WBC Sodium (137-145) mmol/L Potassium (3.5-5.1) mmol/L Chloride (98-107) mmol/L Carbon Dioxide (22-30) mmol/L BUN (9-20) mg/dL Creatinine (0.66-1.25) mg/dL Glucose (74-99) mg/dL Calcium (8.4-10.2) mg/dL Crossmatch See Detail 07/04/17 Range/Units 05:48 WBC (3.8-10.6) k/uL RBC (4.30-5.90) m/uL Hgb (13.0-17.5) gm/dL Hct (39.0-53.0) % Plt Count (150-450) k/uL Neutrophils # (Manual) (1.3-7.7) k/uL Lymphocytes # (Manual) (1.0-4.8) k/uL Metamyelocytes # (Man) (0) k/uL Myelocytes # (Manual) (0) k/uL Nucleated RBCs (0-0) /100 WBC Sodium 124 L (137-145) mmol/L Potassium 5.7 H (3.5-5.1) mmol/L Chloride 92 L (98-107) mmol/L Carbon Dioxide 16 L (22-30) mmol/L BUN 70 H (9-20) mg/dL Creatinine 6.97 H* (0.66-1.25) mg/dL Glucose 103 H (74-99) mg/dL Calcium 6.6 L (8.4-10.2) mg/dL Crossmatch Microbiology - Last 24 Hours (Table) 06/27/17 10:40 Blood Culture - Final Blood No Growth after 144 hours Assessment and Plan Assessment: 1. Bilateral upper lobe pneumonia with change in mental status, acute metabolic encephalopathy present on admission 2. Bladder cancer, computed tomography scan suggests progression; status post cystoscopy 3. Troponin 0.472, indeterminate 4. rhabdomyolysis 5. Acute on chronic renal failure, stage III 6. Acute UTI 7 possible THC abuse 8. Polysubstance abuse, history of 9. CAD 10. Thrombocytopenia 11. Bilateral hydronephrosis 12. Acute right femoral DVT, status post IVC filter placement 13. Hyperkalemia 14. Acute on chronic blood loss anemia secondary to hematuria, chronic renal failure 15. Acute hypoxic respiratory failure 16. Metabolic acidosis secondary to renal failure Plan: Continue on current medication regime ,monitoring and symptomatic treatment. Scheduled for nephrostomy tube placement tomorrow. Receiving Kayexalate, sodium bicarb as per nephrology, Prognosis guarded given metastatic cancer, progressive. Close monitoring of hemoglobin, electrolytes with repeat labs ordered for a.m. follow closely with urology, nephrology, oncology. The impression and plan of care has been dictated as directed. : I performed a history and examination of this patient, discussed the same with the dictator. I agree with the dictator's note ,documented as a scribe. Any additional findings or plans will be noted.
--- NOTE | 2017-07-04 19:21 | P.PN ---
Progress Note - Text Progress Note Date: 07/04/17 Mr. Garcia' creatinine level has increased today to 6.97. The patient continues to prefer nephrostomy tube placement over Comfort Care. I spoke with Dr. Fortune today, who is understandably concerned about nephrostomy tube placement given Mr. Garcia' overall condition. It has been decided that he will be transfused overnight (PRBC's and platelets) and undergo nephrostomy tube placement tomorrow morning.
--- NOTE | 2017-07-04 20:17 | XR ---
EXAMINATION TYPE: XR chest 2V DATE OF EXAM: 07/04/2017 COMPARISON: June 30, 2017 HISTORY: Hypoxemia TECHNIQUE: Frontal and lateral views of the chest are obtained. FINDINGS: There is bilateral blunting of costophrenic angles. There is some pneumonic consolidation in the lateral right upper lobe. Heart appears enlarged. There are chest leads. There are sternal wir es. The bony thorax is intact. IMPRESSION: There is increasing right upper lobe pneumonic infiltrate compared to last exam. There i s new right pleural effusion. There is stable left pleural effusion. Heart failure cannot be excluded . Inspiration is worse than last exam.
[2017-07-04] MEDS: SYMBICORT 160-4.5 MCG INHALER INHALATION SCH (20:50)
--- NOTE | 2017-07-04 21:44 | P.PN ---
Subjective Progress Note Date: 07/04/17 The pt remains weak. Po intake is variable has not recurred in the urine since stopping heparin. he is s/p IVC filter placement Objective - Vital Signs Vital signs: Vital Signs Temp 97.4 F L 07/04/17 15:15 Pulse 78 07/04/17 16:28 Resp 20 07/04/17 15:15 BP 118/63 07/04/17 15:15 Pulse Ox 90 L 07/04/17 15:15 Intake & Output 07/04/17 07/04/17 07/05/17 06:59 18:59 06:59 Intake Total 225 50 Output Total 200 4500 Balance 25 -4450 Weight 84 kg Intake: IV 225 Sodium Chloride 0.9% 1, 225 000 ml @ 75 mls/hr IV . [id number] [facility] Rx#:[id number] Intake, IV Titration 50 Amount Piperacillin-Tazobactam 3 50 .375 gm In Dextrose/Water 1 50ml.bag @ 12.5 mls/hr IVPB Q12HR [facility] Rx#: [id number] Output: Urine 200 3-way Urethral 100 Other 4500 Other: Voiding Method Indwelling Catheter Indwelling Catheter - Constitutional General appearance: Present: no acute distress - EENT ENT: Present: normal oropharynx - Respiratory Respiratory: bilateral: CTA - Cardiovascular Rhythm: regular Heart sounds: normal: S1, S2 - Gastrointestinal Gastrointestinal Comment(s): Free fluid +ve by exam General gastrointestinal: Present: distended - Integumentary Integumentary: Present: normal - Neurologic Neurologic: Present: CNII-XII intact - Musculoskeletal Musculoskeletal: Present: generalized weakness, strength equal bilaterally - Psychiatric Psychiatric: Present: A&O x's 3 - Labs CBC & Chem 7: 07/04/17 05:48 07/04/17 05:48 Labs: Abnormal Lab Results - Last 24 Hours (Table) 07/04/17 07/04/17 Range/Units 05:48 05:48 WBC 12.5 H (3.8-10.6) k/uL RBC 2.53 L (4.30-5.90) m/uL Hgb 7.2 L (13.0-17.5) gm/dL Hct 22.2 L (39.0-53.0) % Plt Count 51 L (150-450) k/uL Neutrophils # (Manual) 10.30 H (1.3-7.7) k/uL Myelocytes # (Manual) 0.25 H (0) k/uL Nucleated RBCs 2 H (0-0) /100 WBC Sodium 124 L (137-145) mmol/L Potassium 5.7 H (3.5-5.1) mmol/L Chloride 92 L (98-107) mmol/L Carbon Dioxide 16 L (22-30) mmol/L BUN 70 H (9-20) mg/dL Creatinine 6.97 H* (0.66-1.25) mg/dL Glucose 103 H (74-99) mg/dL Calcium 6.6 L (8.4-10.2) mg/dL Assessment and Plan (1) Altered mental status Current Visit: Yes Status: Acute Code(s): R41.82 - ALTERED MENTAL STATUS, UNSPECIFIED SNOMED Code(s): 080822761 (2) Bladder cancer Narrative/Plan: The pt has progressive diseaase on CT and cystosocopy. He now has established stage IV disease, which is not curable. In light of his other ongoing issues, his wishes regarding [facility] were discussed in detail. He clarified that he does want to keep the option of active treatment. He understands that the objective of treatment would be palliative Current Visit: No Status: Acute Code(s): C67.9 - MALIGNANT NEOPLASM OF BLADDER, UNSPECIFIED SNOMED Code(s): 112922057 (3) Hematuria Current Visit: Yes Status: Acute Code(s): R31.9 - HEMATURIA, UNSPECIFIED SNOMED Code(s): 30783077 (4) Thrombocytopenia Current Visit: Yes Status: Acute Code(s): D69.6 - THROMBOCYTOPENIA, UNSPECIFIED SNOMED Code(s): 037156596 (5) Deep vein thrombosis Narrative/Plan: He was unable to tolerate anticoagulation, with recurrent, marked hematuria. Thus IV heparin was stopped. He is s/p IVC filter placement Current Visit: Yes Status: Acute Code(s): I82.409 - ACUTE EMBOLISM AND THOMBOS UNSP DEEP VN UNSP LOWER EXTREMITY SNOMED Code(s): 383573238 (6) Renal insufficiency Narrative/Plan: He has progressive reanl insufficiency due to obstructive uropathy. He is not a candidate for stent placement due to overgrowth of the trigone by tumor. Thus nephrostomy tubes are planned. Case extensive d/w Nephrology, Urology and IR. It was definitively clarified with the pt, that he does want active treatment for his cancer if possible. It was also discussed that he is at increased risk with the procedure, due to anemia and low plt. He will need PRBC and plt transfusion prior to the procedure. He expressed understanding and wants to proceed Current Visit: Yes Status: Acute Code(s): N28.9 - DISORDER OF KIDNEY AND URETER, UNSPECIFIED SNOMED Code(s): 932424197
[2017-07-04] MEDS: ESCITALOPRAM 20 MG TAB PO SCH (21:53)
[2017-07-04] MEDS: ATORVASTATIN 20 MG TAB PO SCH (21:53)
[2017-07-04] MEDS: SODIUM BICARBONATE TAB 650 MG TAB PO SCH (21:55)
[2017-07-05] MEDS: SODIUM CHLORIDE 0.9% IRRIGATIO 3,000 ML IRRIGATION SCH (05:00)
[2017-07-05] MEDS: NITROGLYCERIN OINT 1 INCH/GM PACKET TOPICAL SCH ×3 (06:07→15:33)
[2017-07-05 07:35] VITALS: RESP 20
[2017-07-05 07:46] LABS: Basophils # (A) 0.1 k/uL (0-0.2); Basophils % (A) 1 %; Eosinophils # (A) 0.1 k/uL (0-0.7); Eosinophils % (A) 1 %; HCT 24.1 % (39.0-53.0); Lymphocytes % (A) 9 %; MCH 28.8 pg (25.0-35.0); MCV 87.3 fL (80.0-100.0); Mean Platelet Volume 9.7; Monocytes # (A) 0.6 k/uL (0-1.0); Monocytes % (A) 5 %; Neutrophils # (A) 9.1 k/uL (1.3-7.7); Neutrophils % (A) 81 %; RBC 2.77 m/uL (4.30-5.90); RDW 14.6 % (11.5-15.5); WBC 11.3 k/uL (3.8-10.6)
[2017-07-05 07:51] LABS: Platelet Count 73 k/uL (150-450)
[2017-07-05 08:03] LABS: Calcium 6.7 mg/dL (8.4-10.2); Potassium 5.6 mmol/L (3.5-5.1)
[2017-07-05] MEDS: IPRATROPIUM-ALBUTEROL 3 ML NEB INHALATION SCH ×4 (08:39→19:27)
[2017-07-05] MEDS: SYMBICORT 160-4.5 MCG INHALER INHALATION SCH ×3 (08:39→19:27)
[2017-07-05] MEDS: DILTIAZEM CD 120 MG CAP.ER.24H PO SCH ×2 (09:02→09:06)
[2017-07-05] MEDS: SENNOSIDES-DOCUSATE SODIUM 1 EACH TAB PO SCH ×3 (09:02→21:26)
[2017-07-05] MEDS: METOPROLOL SUCCINATE (ER) 25 MG TAB.ER.24H PO SCH ×2 (09:02→09:06)
[2017-07-05] MEDS: EZETIMIBE 10 MG TAB PO SCH ×2 (09:02→09:06)
[2017-07-05] MEDS: SODIUM BICARBONATE TAB 650 MG TAB PO SCH ×3 (09:02→21:26)
[2017-07-05] MEDS: PANTOPRAZOLE 40 MG TABLET PO SCH ×2 (09:02→09:06)
[2017-07-05] MEDS: PIPERACILLIN-TAZOBACTAM 3.375 GM in DEXTROSE/WATER 1 50ML.BAG IVPB SCH ×2 (09:16→21:26)
[2017-07-05 13:49] VITALS: BMI 26.4
--- NOTE | 2017-07-05 14:25 | PN ---
PROGRESS NOTE Patient is seen for followup for acute kidney injury secondary to obstructive uropathy from progressive bladder cancer. Patient could not have the nephrostomy tubes placed this morning as he developed significant hypoxia when he laid down. The procedure was aborted. Currently, he is awake, but is lethargic and is not able to talk much or swallow pills. Renal function continues to worsen with serum creatinine today at 7.4 mg/dL, potassium is at 5.6. He continues to have poor urine output. I discussed with his son regarding options for dialysis versus hospice. I did explain to them that it will not significantly improve the quality of life and if the nephrostomy tubes are unsuccessful down the road, the patient is not a good candidate for long-term outpatient renal replacement therapy. At this time, the patient's son wants to proceed with NO CODE, NO INTUBATION code status and no plans for renal replacement therapy at this time. PHYSICAL EXAMINATION: On examination, patient is arousable. He is not in any acute distress. But he dozes back to sleep. Blood pressure is 131/73, heart rate 80 per minute. He is afebrile. EXAMINATION OF THE HEART: S1, S2. EXAMINATION OF THE LUNGS: Decreased breath sounds at the bases. Basal crackles are heard. Abdomen is soft, distended, nontender. Examination of the lower extremities shows edema right lower extremity 2+, trace in left lower extremity. ENDOSCOPE TECHNICIAN EXAM: Detailed exam cannot be performed, but patient has been moving all 4 extremities. LABS: Lab show hemoglobin 8.0, white cell count 11.3. Sodium 124, potassium 5.6, chloride 89, CO2 of 16, BUN 87, serum creatinine 7.4. Calcium at 6.7 mg/dL. ASSESSMENT: 1. Acute kidney injury, obstructive uropathy secondary to progressive bladder cancer with unsuccessful attempt for nephrostomy tube placement. I discussed with the son options of hospice versus starting dialysis and at this time the family wants to hold off on dialysis and proceed with NO CODE NO INTUBATION code status. I have given him Kayexalate, however, he is not able to take that p.o. 2. Non gap metabolic acidosis secondary to worsening renal failure, maintained on sodium bicarb. 3. Hyponatremia secondary to renal failure. 4. Hyperkalemia associated with obstructive uropathy and progressive renal failure and poor urine output. PLAN: Overall prognosis is guarded. No plans for dialysis at this time. However, I have advised the son that they can inform us if there is any change in the decision. MMODL / IJN: [id number] /
[2017-07-05 15:38] VITALS: BP 128/80; TEMP 97.3
[2017-07-05] MEDS ORDERED: MORPHINE ORAL SOL CONC 20 MG/ML BOTTLE SL PRN (15:51)
[2017-07-05] MEDS ORDERED: LORazepam 0.5 MG TAB SUBLINGUAL PRN (15:55)
--- NOTE | 2017-07-05 16:44 | P.PN ---
Subjective Progress Note Date: 07/05/17 Unable to tolerate nephrostomy tube placement. Patient and son refusing diaylysis, s/p IVC filter placement. Patient is quite confused at the time of my evaluation Objective - Vital Signs Vital signs: Vital Signs Temp 97.5 F L 07/05/17 11:00 Pulse 80 07/05/17 12:28 Resp 20 07/05/17 11:00 BP 131/73 07/05/17 11:00 Pulse Ox 90 L 07/05/17 11:00 Intake & Output 07/04/17 07/05/17 07/05/17 18:59 06:59 18:59 Intake Total 50 746 Output Total 4500 1500 Balance -4450 746 -1500 Weight 88.5 kg 88.5 kg Intake: IV 250 Sodium Chloride 0.9% 1, 250 000 ml @ 75 mls/hr IV . [id number] [facility] Rx#:[id number] Intake, IV Titration 50 Amount Piperacillin-Tazobactam 3 50 .375 gm In Dextrose/Water 1 50ml.bag @ 12.5 mls/hr IVPB Q12HR [facility] Rx#: [id number] Blood Product 496 Platelet Pheresis Acda1 186 Unit [id number] Rc Pheresis 2 As3 Unit 310 [id number] Output: Other 4500 1500 Other: Voiding Method Indwelling Catheter Indwelling Catheter Indwelling Catheter - Constitutional General appearance: Present: mild distress - EENT Eyes: Present: PERRLA - Respiratory Respiratory: bilateral: diminished - Cardiovascular Rhythm: regular Heart sounds: normal: S1, S2 - Gastrointestinal General gastrointestinal: Present: decreased bowel sounds, distended - Neurologic Neurologic: Present: CNII-XII intact - Musculoskeletal Musculoskeletal: Present: generalized weakness - Psychiatric Psychiatric Comment(s): Confused - Labs CBC & Chem 7: 07/05/17 07:10 07/05/17 07:10 Labs: Abnormal Lab Results - Last 24 Hours (Table) 07/04/17 07/05/17 07/05/17 Range/Units 20:36 07:10 07:10 WBC 11.3 H (3.8-10.6) k/uL RBC 2.77 L (4.30-5.90) m/uL Hgb 8.0 L (13.0-17.5) gm/dL Hct 24.1 L (39.0-53.0) % Plt Count 73 L (150-450) k/uL Neutrophils # 9.1 H (1.3-7.7) k/uL Sodium 124 L (137-145) mmol/L Potassium 5.6 H (3.5-5.1) mmol/L Chloride 89 L (98-107) mmol/L Carbon Dioxide 16 L (22-30) mmol/L BUN 87 H* (9-20) mg/dL Creatinine 7.44 H* (0.66-1.25) mg/dL Calcium 6.7 L (8.4-10.2) mg/dL Crossmatch See Detail Assessment and Plan (1) Bladder cancer Narrative/Plan: 1. The pt has progressive disease on CT and cystosocopy. He now has established stage IV disease, which is not curable. In light of his other ongoing issues, his wishes regarding further treatment were discussed in detail. He he initially did want to keep the option of active treatment. He understands that the objective of treatment would be palliative. 2. With the most recent situation of not being able to undergo nephrostomy tube , progressive renal failure and development of uremic symptoms, he is not felt to be a candidate for active cancer treatment. Therefore comfort care appears to be most appropriate. A hospice information meeting is being set up for him and his family to discuss options of comfort. Current Visit: No Status: Acute Code(s): C67.9 - MALIGNANT NEOPLASM OF BLADDER, UNSPECIFIED SNOMED Code(s): 954488485 (2) Altered mental status Narrative/Plan: Likely due to progressive renal failure and development of uremia Current Visit: Yes Status: Acute Code(s): R41.82 - ALTERED MENTAL STATUS, UNSPECIFIED SNOMED Code(s): 207234408 (3) Deep vein thrombosis Narrative/Plan: Status post IVC filter. Not a candidate for anticoagulation due to progressive hematuria Current Visit: Yes Status: Acute Code(s): I82.409 - ACUTE EMBOLISM AND THOMBOS UNSP DEEP VN UNSP LOWER EXTREMITY SNOMED Code(s): 848422844 (4) Renal insufficiency Narrative/Plan: As the patient is not a candidate for stenting or nephrostomy tube placement, this is expected to be progressive. The patient is already showing evidence of uremia. Current Visit: Yes Status: Acute Code(s): N28.9 - DISORDER OF KIDNEY AND URETER, UNSPECIFIED SNOMED Code(s): 321986060
--- NOTE | 2017-07-05 17:43 | P.PN ---
Subjective Progress Note Date: 07/05/17 Progress note being dictated for Dr. Jiang Interval history: This is a 67-year-old gentleman admitted with syncope, fall, acute metabolic encephalopathy, elevated troponins, rhabdomyolysis, renal failure, UTI and multiple other medical issues. Maintained on gentle IV fluid hydration, empiric antibiotics. Mildly worsening renal function. CK improving. Sensorium significantly improved. Evaluated by cardiology with recommendations noted. Evaluated by physical therapy with subacute rehab recommended at discharge. Troponins 0.119, 0.472, 0.567. Afebrile, normal WBC. Urine culture negative. Pulmonary blood cultures negative. Echo suboptimal, reporting moderately impaired LV function, EF 35-40%. 07/01/17 maintained on IV fluid hydration at 75 MLS an hour. Renal function continues to worsen, 3.88. Hematuria, currently hemoglobin 9.1.Repeat Hgb pending. Evaluated by urology.Cystoscopy with placement of bilateral ureteral stents scheduled for tomorrow; bladder tumor resection also being considered. Hyperkalemic, K5.5. No chest pain, no palpitations. Afebrile. 07/02/17 scheduled for cystoscopy and placement of bilateral ureteral stents with urology as well as IVC filter per interventional radiology today. Yesterday hyperkalemic, potassium 5.5, received Kayexalate with follow-up BMP pending. Hematuria persists. Hemoglobin 7.3. Denies chest pain, palpitations. Oxygen weaned down to 4 L nasal cannula, maintaining O2 sats of 95%.afebrile. 07/03/17 yesterday he underwent cystoscopy, reporting multiple tumors on right lateral and anterior bladder wall, active bleeding from right lateral bladder wall evacuation of multiple clots, fulguration of bleeders with ureteral orifices unable to be identified, therefore inability to place stents. Maintained on continuous bladder irrigation. Appears to have a no urine output , urine essentially clear in the Michelle catheter tube. Renal function continues to worsen up to 6.37, hyperkalemic, with hemoglobin down to 5.5. Receiving packed RBCs. Yesterday discussed progressive metastatic bladder cancer, patient was unsure whether to proceed with treatment versus comfort care. Urology updated patient's son on the bladder cancer -metastatic, progressive with recommendations/options of comfort care offered. Today patient requesting everything be done. Increased abdominal and bilateral flank pain. Scheduled for nephrostomy tube insertion via interventional radiology. 07/04/17 Nephrostomy tube scheduled for tomorrow. RBCs and platelets prior to procedure secheduled.Current hemoglobin 7.2 and platelets 51. Renal function continues to worsen. Minimal urine output. Acidotic, CO2 16. Sodium bicarb initiated. Yesterday requiring 2-3 LnNC O2, currently maintaining 90% on 4 l NC. Hyperkalemic, receiving Kayexalate as per nephrology. Complains of Bilateral flank pain. Telemetry sinus rhythm. 07/05/17 unable to tolerate position for nephrostomy tube placement, procedure cancelled. Progressive renal failure, not uremic. Son declining hemodialysis. Per oncology patient is not a candidate for active cancer treatment with recommendations of comfort care. Patient is a very lethargic, obtunded today. Moaning in pain, receiving sublingual Roxanol and Ativan. Discussed with son declining patient's condition, poor prognosis, pain management, options of comfort care and hospice. Son states he is coming in tonight, after discussing further with family. Objective - Vital Signs Vital signs: Vital Signs Temp 98.4 F 07/05/17 07:34 Pulse 76 07/05/17 08:59 Resp 20 07/05/17 07:34 BP 140/63 07/05/17 07:34 Pulse Ox 90 L 07/05/17 07:34 Intake & Output 07/04/17 07/05/17 07/05/17 18:59 06:59 18:59 Intake Total 50 746 Output Total 4500 1500 Balance -4450 746 -1500 Weight 88.5 kg Intake: IV 250 Sodium Chloride 0.9% 1, 250 000 ml @ 75 mls/hr IV . [id number] [facility] Rx#:[id number] Intake, IV Titration 50 Amount Piperacillin-Tazobactam 3 50 .375 gm In Dextrose/Water 1 50ml.bag @ 12.5 mls/hr IVPB Q12HR [facility] Rx#: [id number] Blood Product 496 Platelet Pheresis Acda1 186 Unit [id number] Rc Pheresis 2 As3 Unit 310 [id number] Output: Other 4500 1500 Other: Voiding Method Indwelling Catheter Indwelling Catheter Indwelling Catheter - Exam PHYSICAL EXAM: VITAL SIGNS: As above GENERAL: Sitting up in bed, appears alert to name only, lethargic, confused, obtunded HEENT: Conjunctivae normal. eyes normal. Left orbital Bruising , oral mucosa dry NECK: No JVD. No thyroid enlargement. No LNs CARDIOVASCULAR: S1, S2 muffled. No murmur RESPIRATION: Breath sounds diminished in the bases. Scattered rhonchi and crackles. ABDOMEN: Soft, distended, hypoactive Bowel sounds. LEGS: Positive edema of right lower extremity. NERVOUS SYSTEM: Unable to evaluate - Labs CBC & Chem 7: 07/05/17 07:10 07/05/17 07:10 Labs: Abnormal Lab Results - Last 24 Hours (Table) 07/04/17 07/05/17 07/05/17 Range/Units 20:36 07:10 07:10 WBC 11.3 H (3.8-10.6) k/uL RBC 2.77 L (4.30-5.90) m/uL Hgb 8.0 L (13.0-17.5) gm/dL Hct 24.1 L (39.0-53.0) % Plt Count 73 L (150-450) k/uL Neutrophils # 9.1 H (1.3-7.7) k/uL Sodium 124 L (137-145) mmol/L Potassium 5.6 H (3.5-5.1) mmol/L Chloride 89 L (98-107) mmol/L Carbon Dioxide 16 L (22-30) mmol/L BUN 87 H* (9-20) mg/dL Creatinine 7.44 H* (0.66-1.25) mg/dL Calcium 6.7 L (8.4-10.2) mg/dL Crossmatch See Detail Assessment and Plan Assessment: 1. Bilateral upper lobe pneumonia with change in mental status, acute metabolic encephalopathy present on admission 2. Bladder cancer, computed tomography scan suggests progression, Stage IV; status post cystoscopy. , per oncology, not a candidate for active cancer treatment. 3. Troponin 0.472, indeterminate 4. rhabdomyolysis 5. Acute on chronic renal failure, stage III, worsening,Unable to undergo nephrostomy tube placement 6. Acute UTI 7 possible THC abuse 8. Polysubstance abuse, history of 9. CAD 10. Thrombocytopenia 11. Bilateral hydronephrosis 12. Acute right femoral DVT, status post IVC filter placement 13. Hyperkalemia 14. Acute on chronic blood loss anemia secondary to hematuria, chronic renal failure 15. Acute hypoxic respiratory failure 16. Metabolic acidosis secondary to renal failure 17. Acute Metabolic encephalopathy, multifactorial, secondary to worsening renal failure, uremia Plan: Continue on current medication regime ,monitoring and symptomatic treatment. Patient's condition has significantly declined, discussed options of comfort care, hospice with son. Son will be in later tonight after discussing with family. Consult Hospice for informational meeting. Prognosis poor given metastatic cancer, progressive. Further recommendations to follow. The impression and plan of care has been dictated as directed. : I performed a history and examination of this patient, discussed the same with the dictator. I agree with the dictator's note ,documented as a scribe. Any additional findings or plans will be noted.
[2017-07-05 19:26] VITALS: PULSE 72
[2017-07-05] MEDS: ESCITALOPRAM 20 MG TAB PO SCH (19:55)
[2017-07-05] MEDS: ATORVASTATIN 20 MG TAB PO SCH (19:55)
[2017-07-05] MEDS ORDERED: LORazepam 2 MG/ML INJ IV PRN ×2 (20:35→20:36)
--- NOTE | 2017-07-07 16:00 | P.DS ---
Providers Date of admission: 06/27/17 13:46 Expected date of discharge: 07/05/17 Attending physician: Alma Heard Consults: 06/27/17 13:46 Consult Physician Urgent Consulting Provider: [facility] Consult Reason/Comments: Elevated troponin Do you want consulting provider notified?: Yes 06/28/17 13:36 Consult Physician Routine Consulting Provider: Pramod Abrams Consult Reason/Comments: Reevaluate lung and bladder cancer Do you want consulting provider notified?: Yes 06/29/17 09:22 Consult Physician Routine Consulting Provider: Margarito Acevedo Consult Reason/Comments: hematuria,h/o bladder Ca Do you want consulting provider notified?: Yes 06/30/17 11:51 Consult Physician Routine Consulting Provider: Shania Linares Consult Reason/Comments: arf Do you want consulting provider notified?: Yes 06/30/17 13:01 Consult Physician Urgent Consulting Provider: Margarito Acevedo Consult Reason/Comments: hydroureter Do you want consulting provider notified?: Yes Primary care physician: Dayan Hui Hospital Course: Discharge diagnosis 1. Bilateral upper lobe pneumonia with change in mental status, acute metabolic encephalopathy present on admission 2. Metastatic Bladder cancer, computed tomography scan suggests progression, Stage IV; status post cystoscopy. , per oncology, not a candidate for active cancer treatment. 3. Troponin 0.472, indeterminate 4. rhabdomyolysis 5. Acute on chronic renal failure, stage III, worsening,Unable to undergo nephrostomy tube placement 6. Acute UTI 7 possible THC abuse 8. Polysubstance abuse, history of 9. CAD 10. Thrombocytopenia 11. Bilateral hydronephrosis 12. Acute right femoral DVT, status post IVC filter placement 13. Hyperkalemia 14. Acute on chronic blood loss anemia secondary to hematuria, chronic renal failure 15. Acute hypoxic respiratory failure 16. Metabolic acidosis secondary to renal failure 17. Acute Metabolic encephalopathy, multifactorial, secondary to worsening renal failure, uremia Hospital course Interval history: This is a 67-year-old gentleman admitted with syncope, fall, acute metabolic encephalopathy, elevated troponins, rhabdomyolysis, renal failure, UTI and multiple other medical issues. Maintained on gentle IV fluid hydration, empiric antibiotics. Mildly worsening renal function. CK improving. Sensorium significantly improved. Evaluated by cardiology with recommendations noted. Evaluated by physical therapy with subacute rehab recommended at discharge. Troponins 0.119, 0.472, 0.567. Afebrile, normal WBC. Urine culture negative. Pulmonary blood cultures negative. Echo suboptimal, reporting moderately impaired LV function, EF 35-40%. 07/01/17 maintained on IV fluid hydration at 75 MLS an hour. Renal function continues to worsen, 3.88. Hematuria, currently hemoglobin 9.1.Repeat Hgb pending. Evaluated by urology.Cystoscopy with placement of bilateral ureteral stents scheduled for tomorrow; bladder tumor resection also being considered. Hyperkalemic, K5.5. No chest pain, no palpitations. Afebrile. 07/02/17 scheduled for cystoscopy and placement of bilateral ureteral stents with urology as well as IVC filter per interventional radiology today. Yesterday hyperkalemic, potassium 5.5, received Kayexalate with follow-up BMP pending. Hematuria persists. Hemoglobin 7.3. Denies chest pain, palpitations. Oxygen weaned down to 4 L nasal cannula, maintaining O2 sats of 95%.afebrile. 07/03/17 yesterday he underwent cystoscopy, reporting multiple tumors on right lateral and anterior bladder wall, active bleeding from right lateral bladder wall evacuation of multiple clots, fulguration of bleeders with ureteral orifices unable to be identified, therefore inability to place stents. Maintained on continuous bladder irrigation. Appears to have a no urine output , urine essentially clear in the Michelle catheter tube. Renal function continues to worsen up to 6.37, hyperkalemic, with hemoglobin down to 5.5. Receiving packed RBCs. Yesterday discussed progressive metastatic bladder cancer, patient was unsure whether to proceed with treatment versus comfort care. Urology updated patient's son on the bladder cancer -metastatic, progressive with recommendations/options of comfort care offered. Today patient requesting everything be done. Increased abdominal and bilateral flank pain. Scheduled for nephrostomy tube insertion via interventional radiology. 07/04/17 Nephrostomy tube scheduled for tomorrow. RBCs and platelets prior to procedure secheduled.Current hemoglobin 7.2 and platelets 51. Renal function continues to worsen. Minimal urine output. Acidotic, CO2 16. Sodium bicarb initiated. Yesterday requiring 2-3 LnNC O2, currently maintaining 90% on 4 l NC. Hyperkalemic, receiving Kayexalate as per nephrology. Complains of Bilateral flank pain. Telemetry sinus rhythm. 07/05/17 unable to tolerate position for nephrostomy tube placement, procedure cancelled. Progressive renal failure, not uremic. Son declining hemodialysis. Per oncology patient is not a candidate for active cancer treatment with recommendations of comfort care. Patient is a very lethargic, obtunded today. Moaning in pain, receiving sublingual Roxanol and Ativan. Discussed with son declining patient's condition, poor prognosis, pain management, options of comfort care and hospice. Son states he is coming in tonight, after discussing further with family. Upon reviewing the patients condition with his son, family is in agreement with with the patient to be transferred to hospice care. Patient Condition at Discharge: Undetermined Plan - Discharge Summary Discharge Rx Participant: No New Discharge Prescriptions: New ALPRAZolam [Xanax] 0.25 mg PO Q8H PRN #20 tab PRN Reason: Anxiety Aspirin 325 mg PO DAILY tab Ipratropium-Albuterol Nebulize [Duoneb 0.5 mg-3 mg/3 ml Soln] 3 ml INHALATION RT-QID ampul.neb traZODone HCL [Desyrel] 50 mg PO HS PRN tab PRN Reason: Insomnia Continue Escitalopram [Lexapro] 20 mg PO DAILY Atorvastatin [Lipitor] 20 mg PO HS Nitroglycerin Sl Tabs [Nitrostat] 0.4 mg PO Q5M PRN PRN Reason: Chest Pain Metoprolol Succinate [Toprol XL] 25 mg PO DAILY Ezetimibe [Zetia] 10 mg PO DAILY Omeprazole 20 mg PO DAILY Diltiazem HCl [Diltiazem 24Hr ER] 120 mg PO AC-BRKFST HYDROcodone/APAP 7.5-325MG [[place] 7.5-325] 1 tab PO Q6HR PRN PRN Reason: Pain Baclofen [Lioresal] 20 mg PO Q6H PRN PRN Reason: Muscle Pain traMADol HCL [Ultram] 50 mg PO Q4HR PRN #20 tablet PRN Reason: Pain Changed Albuterol Sulfate [Proair Hfa] 2 puff INHALATION Q4H PRN #0 PRN Reason: Shortness Of Breath Discontinued Tiotropium 18 Mcg/Puff [Spiriva] 1 cap INHALATION RT-DAILY traZODone HCL 50 - 100 mg PO HS PRN PRN Reason: Insomnia ALPRAZolam [ALPRAZolam] 1 mg PO Q8H PRN PRN Reason: Anxiety No Action Clopidogrel [Plavix] 75 mg PO DAILY Discharge Medication List Atorvastatin [Lipitor] 20 mg PO HS 08/20/14 [History] Clopidogrel [Plavix] 75 mg PO DAILY 08/20/14 [History] Escitalopram [Lexapro] 20 mg PO DAILY 08/20/14 [History] Ezetimibe [Zetia] 10 mg PO DAILY 08/20/14 [History] Metoprolol Succinate [Toprol XL] 25 mg PO DAILY 08/20/14 [History] Nitroglycerin Sl Tabs [Nitrostat] 0.4 mg PO Q5M PRN 08/20/14 [History] Diltiazem HCl [Diltiazem 24Hr ER] 120 mg PO AC-BRKFST 10/27/15 [History] Omeprazole 20 mg PO DAILY 10/27/15 [History] HYDROcodone/APAP 7.5-325MG [[place] 7.5-325] 1 tab PO Q6HR PRN 06/12/17 [History] Baclofen [Lioresal] 20 mg PO Q6H PRN 06/27/17 [History] ALPRAZolam [Xanax] 0.25 mg PO Q8H PRN #20 tab 07/01/17 [Rx] Albuterol Sulfate [Proair Hfa] 2 puff INHALATION Q4H PRN #0 07/01/17 [Rx] Aspirin 325 mg PO DAILY tab 07/01/17 [Rx] Ipratropium-Albuterol Nebulize [Duoneb 0.5 mg-3 mg/3 ml Soln] 3 ml INHALATION RT -QID ampul.neb 07/01/17 [Rx] traMADol HCL [Ultram] 50 mg PO Q4HR PRN #20 tablet 07/01/17 [Rx] traZODone HCL [Desyrel] 50 mg PO HS PRN tab 07/01/17 [Rx] Follow up Appointment(s)/Referral(s): Pramod Abrams MD [STAFF PHYSICIAN] - 1 Week Campbell Troncoso DO [STAFF PHYSICIAN] - 3 Days (while at [facility]) Margarito Acevedo MD [STAFF PHYSICIAN] - 1 Week Dayan Hui III, MD [Primary Care Provider] - 1 Week (After DC from subacute rehab) Scott Queen MD [STAFF PHYSICIAN] - 1 Week Patient Instructions/Handouts: Inferior Vena Cava Filter Placement (DC) Activity/Diet/Wound Care/Special Instructions: PH Medi anticoagulation as per Oncology Diet: cardiac Activity: as tolerated cbc,bmp in 3 days Discharge Disposition: HOME WITH HOSPICE
== END 2017-07-05 21:26 | disposition hospice, home (50) | DRG 166 ==
LOC: EC 10:14 → 6SEL 13:46
PROVIDERS: ADMIT Hospitalist; ATTEND Hospitalist
PROC: 30233N1 Transfusion of Nonautologous Red Blood Cells into Peripheral Vein, Percutaneous Approach (ICD-10-PCS; 2017-06-30)
PROC: 0W3R8ZZ Control Bleeding in Genitourinary Tract, Via Natural or Artificial Opening Endoscopic (ICD-10-PCS; 2017-07-02)
PROC: 0TCB8ZZ Extirpation of Matter from Bladder, Via Natural or Artificial Opening Endoscopic (ICD-10-PCS; principal; 2017-07-02 07:30)
PROC: 06H03DZ Insertion of Intraluminal Device into Inferior Vena Cava, Percutaneous Approach (ICD-10-PCS; 2017-07-03)
PROC: 30233R1 Transfusion of Nonautologous Platelets into Peripheral Vein, Percutaneous Approach (ICD-10-PCS; 2017-07-03)
DX: J18.9 Pneumonia, unspecified organism (principal); G93.41 Metabolic encephalopathy; J96.01 Acute respiratory failure with hypoxia; N17.9 Acute kidney failure, unspecified; C78.00 Secondary malignant neoplasm of unspecified lung; E87.2 Acidosis; I82.411 Acute embolism and thrombosis of right femoral vein; M62.82 Rhabdomyolysis; D62 Acute posthemorrhagic anemia; I48.92 Unspecified atrial flutter; D69.6 Thrombocytopenia, unspecified; E87.1 Hypo-osmolality and hyponatremia; N13.30 Unspecified hydronephrosis; N39.0 Urinary tract infection, site not specified; N13.4 Hydroureter; C67.9 Malignant neoplasm of bladder, unspecified; E78.5 Hyperlipidemia, unspecified; E87.5 Hyperkalemia; G89.29 Other chronic pain; I12.9 Hypertensive chronic kidney disease with stage 1 through stage 4 chronic kidney disease, or unspecified chronic kidney disease; I25.119 Atherosclerotic heart disease of native coronary artery with unspecified angina pectoris; I25.2 Old myocardial infarction; I25.5 Ischemic cardiomyopathy; K21.9 Gastro-esophageal reflux disease without esophagitis; K57.90 Diverticulosis of intestine, part unspecified, without perforation or abscess without bleeding; N18.3 Chronic kidney disease, stage 3 (moderate); R31.0 Gross hematuria; S01.81XA Laceration without foreign body of other part of head, initial encounter; F32.9 Major depressive disorder, single episode, unspecified; F41.9 Anxiety disorder, unspecified; M19.90 Unspecified osteoarthritis, unspecified site; M47.9 Spondylosis, unspecified; R26.9 Unspecified abnormalities of gait and mobility; R74.8 Abnormal levels of other serum enzymes; M54.10 Radiculopathy, site unspecified; Z79.02 Long term (current) use of antithrombotics/antiplatelets; Z79.899 Other long term (current) drug therapy; Z87.440 Personal history of urinary (tract) infections; Z87.891 Personal history of nicotine dependence; Z88.6 Allergy status to analgesic agent; Z88.5 Allergy status to narcotic agent; Z95.1 Presence of aortocoronary bypass graft; Z82.49 Family history of ischemic heart disease and other diseases of the circulatory system; W19.XXXA Unspecified fall, initial encounter; Y92.009 Unspecified place in unspecified non-institutional (private) residence as the place of occurrence of the external cause
CPT/HCPCS: 12011; 36415; 37191; 70450; 71045; 71046; 71250; 72125; 74176; 80048; 80053; 80061; 80306; 80320; 81001; 82550; 82553; 83615; 83735; 84484; 85025; 85027; 85384; 85610; 85730; 86850; 86900; 86901; 86920; 87040; 87086; 90471; 90715; 93005; 93306; 94640; 94760; 96361; 96365; 96375; 99285

== ENCOUNTER 2017-07-05 21:32 | Inpatient (IN) | payer MEDICAID ==
[2017-07-05] MEDS ORDERED: ONDANSETRON 4 MG/2 ML VIAL IVP PRN (21:42)
[2017-07-05] MEDS ORDERED: ACETAMINOPHEN SUPPOSITORY 650 MG SUPP RECTAL PRN (21:42)
[2017-07-05] MEDS ORDERED: SCOPOLAMINE 1.5MG/72HR PATCH TRANSDERM PRN (21:42)
[2017-07-05] MEDS ORDERED: BISACODYL 10 MG SUPP RECTAL PRN (21:50)
[2017-07-05] MEDS ORDERED: SODIUM CHLORIDE 0.9% IRRIGATIO 3,000 ML IRRIGATION ONE (21:53)
[2017-07-06] MEDS ORDERED: SODIUM CHLORIDE 0.9% IRRIGATIO 3,000 ML IRRIGATION ONE (00:40)
[2017-07-06] MEDS: LORazepam 2 MG/ML INJ IV PRN ×5 (00:54→22:35)
[2017-07-06] MEDS: MORPHINE SULFATE (100 MG/2 ML) 100 MG in SODIUM CHLORIDE 0.9% 100 ML IV SCH (15:54)
[2017-07-06] MEDS: ATROPINE OPHTH SOLN 1% 5ML BTL SUBLINGUAL PRN (22:36)
[2017-07-07] MEDS: ATROPINE OPHTH SOLN 1% 5ML BTL SUBLINGUAL PRN (02:21)
[2017-07-07] MEDS: MORPHINE SULFATE (100 MG/2 ML) 100 MG in SODIUM CHLORIDE 0.9% 100 ML IV SCH (07:53)
--- NOTE | 2017-07-07 16:05 | P.HPIM ---
History of Present Illness H&P Date: 07/06/17 Chief Complaint: Abdominal pain Interval history: This is a 67-year-old gentleman admitted with syncope, fall, acute metabolic encephalopathy, elevated troponins, rhabdomyolysis, renal failure, UTI and multiple other medical issues. Maintained on gentle IV fluid hydration, empiric antibiotics. Mildly worsening renal function. CK improving. Sensorium significantly improved. Evaluated by cardiology with recommendations noted. Evaluated by physical therapy with subacute rehab recommended at discharge. Troponins 0.119, 0.472, 0.567. Afebrile, normal WBC. Urine culture negative. Pulmonary blood cultures negative. Echo suboptimal, reporting moderately impaired LV function, EF 35-40%. Patient was continued on antibiotics. Patient was seen by oncology and urology. Patient does have stage IV metastatic bladder cancer and obstructive uropathy. Patient underwent cystoscopy and patient does have obstructive uterers and could not be located. Urology recommended interest radiology to place a nephrostomy tube. Patient was seen by interventional radiology and was scheduled for nephrostomy tube. Patient did went to the procedure but the patient became shortness of breath with worsening respiratory failure function and was not medically stable to get the procedure done. Otherwise upon further discussion with the family, family is in agreement with comfort care and transfer to hospice. Past Medical History Past Medical History: Atrial Flutter, Coronary Artery Disease (CAD), Cancer, GERD/Reflux, GI Bleed, Hyperlipidemia, Hypertension, Myocardial Infarction (NM) , Osteoarthritis (OA) Additional Past Medical History / Comment(s): Recent UTI and completed antibiotics, bladder/lung cancers tx with radiation and chemo, DDD, chronic low back pain with radiculopathy, metabolic encephalopathy with AMS 2ndary to polysubstance abuse-son states pt now adhering to pain medication as ordered, ischemic cardiomyopathy, coma post NM, lower GI bleed, [place]/tinnitis bilaterally , thrombocytopenia. Last Myocardial Infarction Date:: 2010 History of Any Multi-Drug Resistant Organisms: None Reported Past Surgical History: Coronary Bypass/CABG, Heart Catheterization, Orthopedic Surgery Additional Past Surgical History / Comment(s): R knee arthroplasty, R shoulder surgery, colonoscopy, multiple pain procedures, 2010 CABG 4 vessel, 2010 PCI with 2 stents. Past Anesthesia/Blood Transfusion Reactions: No Reported Reaction Smoking Status: Former smoker - Past Family History Son(s) Additional Family Medical History / Comment(s): Son at age 32 from brain aneurysm Mother Family Medical History: Congestive Heart Failure (CHF) Additional Family Medical History / Comment(s): HEART SWELLED Medications and Allergies Home Medications Medication Instructions Recorded Confirmed Type Atorvastatin [Lipitor] 20 mg PO HS 08/20/14 06/27/17 History Clopidogrel [Plavix] 75 mg PO DAILY 08/20/14 06/27/17 History Escitalopram [Lexapro] 20 mg PO DAILY 08/20/14 06/27/17 History Ezetimibe [Zetia] 10 mg PO DAILY 08/20/14 06/27/17 History Metoprolol Succinate [Toprol XL] 25 mg PO DAILY 08/20/14 06/27/17 History Nitroglycerin Sl Tabs [Nitrostat] 0.4 mg PO Q5M PRN 08/20/14 06/27/17 History Diltiazem HCl [Diltiazem 24Hr ER] 120 mg PO AC-BRKFST 10/27/15 06/27/17 History Omeprazole 20 mg PO DAILY 10/27/15 06/27/17 History HYDROcodone/APAP 7.5-325MG [[place] 1 tab PO Q6HR PRN 06/12/17 06/27/17 History 7.5-325] Baclofen [Lioresal] 20 mg PO Q6H PRN 06/27/17 06/27/17 History ALPRAZolam [Xanax] 0.25 mg PO Q8H PRN #20 tab 07/01/17 Rx Albuterol Sulfate [Proair Hfa] 2 puff INHALATION Q4H PRN #0 07/01/17 06/27/17 Rx Aspirin 325 mg PO DAILY tab 07/01/17 Rx Ipratropium-Albuterol Nebulize 3 ml INHALATION RT-QID ampul.neb 07/01/17 Rx [Duoneb 0.5 mg-3 mg/3 ml Soln] traMADol HCL [Ultram] 50 mg PO Q4HR PRN #20 tablet 07/01/17 Rx traZODone HCL [Desyrel] 50 mg PO HS PRN tab 07/01/17 Rx Allergies Allergy/AdvReac Type Severity Reaction Status Date / Time propoxyphene HCl Allergy Dyspnea Verified 06/27/17 11:46 [From Darvon] propoxyphene napsylate Allergy Unknown Verified 06/27/17 11:46 [From Darvocet-N] aspirin AdvReac Unknown Verified 06/27/17 11:46 Physical Exam Vitals: Intake and Output 07/06/17 07/06/17 07/06/17 06:59 14:59 22:59 Intake Total 0 0 Balance 0 0 Intake: Oral 0 0 Other: Voiding Method Indwelling Catheter Indwelling Catheter Indwelling Catheter PHYSICAL EXAMINATION: Patient is lying in the bed comfortably, no acute distress, patient is drowsy and confused. HEENT: Normocephalic. Neck is supple. Pupils reactive. Nostrils clear. Oral cavity is moist. Ears reveal no drainage. Neck reveals no JVD, carotid bruits, or thyromegaly. CHEST EXAMINATION: Trachea is central. Symmetrical expansion. Bilateral diffuse rhonchi and crackles positive. CARDIAC: Normal S1, S2 with no gallops. No murmurs ABDOMEN: Soft. Bowel sounds normal. No organomegaly. No abdominal bruits. Extremities: reveal no edema. No clubbing or cyanosis Neurologically. Patient is lethargic and drowsy and unable to respond to verbal stimuli Skin: No rash or skin lesions. Psychiatric: Could not be assessed Musculoskeletal: No joint swelling or deformity. Normal range of motion. Assessment and Plan Assessment: 1. Bilateral upper lobe pneumonia with change in mental status, acute metabolic encephalopathy present on admission 2. Metastatic Bladder cancer, computed tomography scan suggests progression, Stage IV; status post cystoscopy. , per oncology, not a candidate for active cancer treatment. 3. Troponin 0.472, indeterminate 4. rhabdomyolysis 5. Acute on chronic renal failure, stage III, worsening,Unable to undergo nephrostomy tube placement 6. Acute UTI 7 possible THC abuse 8. Polysubstance abuse, history of 9. CAD 10. Thrombocytopenia 11. Bilateral hydronephrosis 12. Acute right femoral DVT, status post IVC filter placement 13. Hyperkalemia 14. Acute on chronic blood loss anemia secondary to hematuria, chronic renal failure 15. Acute hypoxic respiratory failure 16. Metabolic acidosis secondary to renal failure 17. Acute Metabolic encephalopathy, multifactorial, secondary to worsening renal failure, uremia Patient be continued on pain management with morphine and Ativan for anxiety and agitation. As needed. We will continue to follow.. Time with Patient: Greater than 30
--- NOTE | 2017-07-07 16:07 | P.DS ---
Providers Date of admission: 07/05/17 21:32 Expected date of discharge: 07/07/17 Attending physician: Alma Heard Primary care physician: Alma Heard Hospital Course: diagnosis 1. Bilateral upper lobe pneumonia with change in mental status, acute metabolic encephalopathy present on admission 2. Metastatic Bladder cancer, computed tomography scan suggests progression, Stage IV; status post cystoscopy. , per oncology, not a candidate for active cancer treatment. 5. Acute on chronic renal failure, stage III, worsening,Unable to undergo nephrostomy tube placement 3. Troponin 0.472, indeterminate 4. rhabdomyolysis 6. Acute UTI 7 possible THC abuse 8. Polysubstance abuse, history of 9. CAD 10. Thrombocytopenia 11. Bilateral hydronephrosis 12. Acute right femoral DVT, status post IVC filter placement 13. Hyperkalemia 14. Acute on chronic blood loss anemia secondary to hematuria, chronic renal failure 15. Acute hypoxic respiratory failure 16. Metabolic acidosis secondary to renal failure 17. Acute Metabolic encephalopathy, multifactorial, secondary to worsening renal failure, uremia Interval history: This is a 67-year-old gentleman admitted with syncope, fall, acute metabolic encephalopathy, elevated troponins, rhabdomyolysis, renal failure, UTI and multiple other medical issues. Maintained on gentle IV fluid hydration, empiric antibiotics. Mildly worsening renal function. CK improving. Sensorium significantly improved. Evaluated by cardiology with recommendations noted. Evaluated by physical therapy with subacute rehab recommended at discharge. Troponins 0.119, 0.472, 0.567. Afebrile, normal WBC. Urine culture negative. Pulmonary blood cultures negative. Echo suboptimal, reporting moderately impaired LV function, EF 35-40%. Patient was continued on antibiotics. Patient was seen by oncology and urology. Patient does have stage IV metastatic bladder cancer and obstructive uropathy. Patient underwent cystoscopy and patient does have obstructive uterers and could not be located. Urology recommended interest radiology to place a nephrostomy tube. Patient was seen by interventional radiology and was scheduled for nephrostomy tube. Patient did went to the procedure but the patient became shortness of breath with worsening respiratory failure function and was not medically stable to get the procedure done. Otherwise upon further discussion with the family, family is in agreement with comfort care and transfer to hospice. Patient be continued on pain management with morphine and Ativan for anxiety and agitation. As needed. Patient on 07/07/2017 at 7:55 AM Family has been notified. Plan - Discharge Summary New Discharge Prescriptions: No Action Escitalopram [Lexapro] 20 mg PO DAILY Atorvastatin [Lipitor] 20 mg PO HS Nitroglycerin Sl Tabs [Nitrostat] 0.4 mg PO Q5M PRN PRN Reason: Chest Pain Metoprolol Succinate [Toprol XL] 25 mg PO DAILY Ezetimibe [Zetia] 10 mg PO DAILY Clopidogrel [Plavix] 75 mg PO DAILY Omeprazole 20 mg PO DAILY Diltiazem HCl [Diltiazem 24Hr ER] 120 mg PO AC-BRKFST HYDROcodone/APAP 7.5-325MG [[place] 7.5-325] 1 tab PO Q6HR PRN PRN Reason: Pain Baclofen [Lioresal] 20 mg PO Q6H PRN PRN Reason: Muscle Pain ALPRAZolam [Xanax] 0.25 mg PO Q8H PRN #20 tab PRN Reason: Anxiety Aspirin 325 mg PO DAILY tab Ipratropium-Albuterol Nebulize [Duoneb 0.5 mg-3 mg/3 ml Soln] 3 ml INHALATION RT-QID ampul.neb traZODone HCL [Desyrel] 50 mg PO HS PRN tab PRN Reason: Insomnia Albuterol Sulfate [Proair Hfa] 2 puff INHALATION Q4H PRN #0 PRN Reason: Shortness Of Breath traMADol HCL [Ultram] 50 mg PO Q4HR PRN #20 tablet PRN Reason: Pain Discharge Medication List Atorvastatin [Lipitor] 20 mg PO HS 08/20/14 [History] Clopidogrel [Plavix] 75 mg PO DAILY 08/20/14 [History] Escitalopram [Lexapro] 20 mg PO DAILY 08/20/14 [History] Ezetimibe [Zetia] 10 mg PO DAILY 08/20/14 [History] Metoprolol Succinate [Toprol XL] 25 mg PO DAILY 08/20/14 [History] Nitroglycerin Sl Tabs [Nitrostat] 0.4 mg PO Q5M PRN 08/20/14 [History] Diltiazem HCl [Diltiazem 24Hr ER] 120 mg PO AC-BRKFST 10/27/15 [History] Omeprazole 20 mg PO DAILY 10/27/15 [History] HYDROcodone/APAP 7.5-325MG [[place] 7.5-325] 1 tab PO Q6HR PRN 06/12/17 [History] Baclofen [Lioresal] 20 mg PO Q6H PRN 06/27/17 [History] ALPRAZolam [Xanax] 0.25 mg PO Q8H PRN #20 tab 07/01/17 [Rx] Albuterol Sulfate [Proair Hfa] 2 puff INHALATION Q4H PRN #0 07/01/17 [Rx] Aspirin 325 mg PO DAILY tab 07/01/17 [Rx] Ipratropium-Albuterol Nebulize [Duoneb 0.5 mg-3 mg/3 ml Soln] 3 ml INHALATION RT -QID ampul.neb 07/01/17 [Rx] traMADol HCL [Ultram] 50 mg PO Q4HR PRN #20 tablet 07/01/17 [Rx] traZODone HCL [Desyrel] 50 mg PO HS PRN tab 07/01/17 [Rx] Discharge Disposition: - Preliminary Cause of Preliminary Cause of : Metastatic bladder cancer and pneumonia and UTI
== END 2017-07-07 12:13 | disposition expired | DRG 686 ==
LOC: 6SEL 21:32 → 5ONC 22:07
PROVIDERS: ADMIT Hospitalist; ATTEND Hospitalist
DX: C67.9 Malignant neoplasm of bladder, unspecified (principal); J18.9 Pneumonia, unspecified organism; J96.01 Acute respiratory failure with hypoxia; G93.41 Metabolic encephalopathy; N17.9 Acute kidney failure, unspecified; E87.2 Acidosis; I82.411 Acute embolism and thrombosis of right femoral vein; D69.6 Thrombocytopenia, unspecified; C79.9 Secondary malignant neoplasm of unspecified site; M62.82 Rhabdomyolysis; N13.30 Unspecified hydronephrosis; N39.0 Urinary tract infection, site not specified; N18.3 Chronic kidney disease, stage 3 (moderate); E87.5 Hyperkalemia; I12.9 Hypertensive chronic kidney disease with stage 1 through stage 4 chronic kidney disease, or unspecified chronic kidney disease; I25.10 Atherosclerotic heart disease of native coronary artery without angina pectoris; D63.1 Anemia in chronic kidney disease; D50.0 Iron deficiency anemia secondary to blood loss (chronic); F41.9 Anxiety disorder, unspecified; R45.1 Restlessness and agitation; Z88.8 Allergy status to other drugs, medicaments and biological substances; Z79.899 Other long term (current) drug therapy; Z79.82 Long term (current) use of aspirin; Z79.02 Long term (current) use of antithrombotics/antiplatelets; Z82.49 Family history of ischemic heart disease and other diseases of the circulatory system; Z87.891 Personal history of nicotine dependence; Z95.1 Presence of aortocoronary bypass graft; Z96.651 Presence of right artificial knee joint; E78.5 Hyperlipidemia, unspecified; I25.2 Old myocardial infarction; M19.90 Unspecified osteoarthritis, unspecified site; K21.9 Gastro-esophageal reflux disease without esophagitis; Z98.61 Coronary angioplasty status; Z92.21 Personal history of antineoplastic chemotherapy; Z92.3 Personal history of irradiation; Z51.5 Encounter for palliative care; R55 Syncope and collapse; M54.5 Low back pain; M54.10 Radiculopathy, site unspecified; H91.90 Unspecified hearing loss, unspecified ear; Z79.891 Long term (current) use of opiate analgesic; F12.10 Cannabis abuse, uncomplicated; Z85.118 Personal history of other malignant neoplasm of bronchus and lung